=== PATIENT | female | born 1935 | race Caucasian/White ===

== ENCOUNTER 2020-09-08 15:26 | Observation (INO) | payer MEDICARE, BC ==
--- NOTE | 2020-09-08 15:47 | ED ---
General Adult HPI - General Chief complaint: Neuro Symptoms/Deficit Stated complaint: Neuro Symptoms Time Seen by Provider: 09/08/20 15:45 Source: patient, family Mode of arrival: wheelchair Limitations: no limitations - History of Present Illness Initial comments: Patient presents to the ED with her son for evaluation. Per son, the patient has had episodes of unresponsiveness intermittently over the past 1-1/2 months or so. Son states that the patient has had about 2-3 dozen such episodes today. Son describes these episodes as a periods of unresponsiveness during which the patient's eyes may be open or may be closed. Son states these episodes last for just a couple minutes at a time, and he states that the patient is completely alert and responsive immediately after these episodes (no postictal period). Patient states that she feels "fuzzy in the head" prior to these episodes. Patient states that she feels fine currently. Patient denies any recent change in her medications. Patient denies trauma or injury, any pain, fever or chills, headache, focal numbness/weakness/neuro deficit, visual changes, speech difficulty, neck/back/extremity pain, chest pain, dyspnea, cough or cold symptoms, palpitations, abdominal pain, nausea/vomiting/diarrhea, bloody or melanotic stool, dysuria or urinary symptoms, or any other symptoms or compl aints. Son states that the patient is fully vaccinated for Covid. - Related Data Home Medications Medication Instructions Recorded Confirmed Albuterol Inhaler [Ventolin Hfa 1 puff INHALATION RT-Q4H PRN 09/08/20 09/08/20 Inhaler] Apixaban [Eliquis] 2.5 mg PO BID 09/08/20 09/08/20 Calcium Carbonate [Calcium] 600 mg PO BID@0800,1700 09/08/20 09/08/20 Flecainide [Tambocor] 50 mg PO Q12HR 09/08/20 09/08/20 Fluticasone/Umeclidin/Vilanter 1 puff INHALATION RT-DAILY 09/08/20 09/08/20 [Trelegy Ellipta 100-62.5-25] HYDROcodone/APAP 5-325MG [[place] 1 tab PO HS 09/08/20 09/08/20 5-325] Ipratropium-Albuterol Nebulize 3 ml INHALATION RT-QID 09/08/20 09/08/20 [Duoneb 0.5 mg-3 mg/3 ml Soln] LORazepam [Ativan] 0.5 mg PO TID PRN 09/08/20 09/08/20 Metoprolol Succinate 200 mg PO DAILY 09/08/20 09/08/20 Multivitamins, Thera [Multivitamin 1 tab PO BID@0800,1700 09/08/20 09/08/20 (formulary)] Nitroglycerin Sl Tabs [Nitrostat] 0.4 mg SUBLINGUAL Q5M PRN 09/08/20 09/08/20 Omeprazole 20 mg PO DAILY 09/08/20 09/08/20 Simvastatin [Zocor] 10 mg PO HS 09/08/20 09/08/20 lisinopriL [Zestril] 5 mg PO BID 09/08/20 09/08/20 predniSONE 5 mg PO DAILY 09/08/20 09/08/20 Allergies Allergy/AdvReac Type Severity Reaction Status Date / Time No Known Allergies Allergy Verified 09/08/20 16:59 Review of Systems ROS Statement: Those systems with pertinent positive or pertinent negative responses have been documented in the HPI. ROS Other: All systems not noted in ROS Statement are negative. Past Medical History Past Medical History: Atrial Fibrillation, COPD, CVA/TIA, Hypertension Additional Past Medical History / Comment(s): left wrist fracture History of Any Multi-Drug Resistant Organisms: None Reported Additional Past Surgical History / Comment(s): hemorroidectomy Past Psychological History: No Psychological Hx Reported Smoking Status: Former smoker Past Alcohol Use History: None Reported Past Drug Use History: None Reported General Exam Limitations: no limitations General appearance: alert, in no apparent distress Head exam: Present: atraumatic, normocephalic Eye exam: Present: normal appearance, PERRL, EOMI ENT exam: Present: mucous membranes moist Neck exam: Present: other (Trachea is in midline). Absent: tenderness, meningismus Respiratory exam: Present: normal lung sounds bilaterally. Absent: respiratory distress, wheezes, rales, rhonchi, stridor Cardiovascular Exam: Present: regular rate, normal rhythm, normal heart sounds, other (Normal radial pulses bilaterally) GI/Abdominal exam: Present: soft. Absent: distended, tenderness, guarding Extremities exam: Present: full ROM. Absent: tenderness, pedal edema, calf tenderness Neurological exam: Present: alert, oriented X3, CN II-XII intact. Absent: motor sensory deficit Psychiatric exam: Present: normal affect, normal mood Skin exam: Present: warm, dry, intact, normal color Course Vital Signs 09/08/20 09/08/20 15:27 17:20 Temperature 98.0 F Pulse Rate 85 79 Respiratory 18 18 Rate Blood Pressure 149/72 151/85 O2 Sat by Pulse 90 L 98 Oximetry - Reevaluation(s) Reevaluation #1: 09/08/20 17:20 Patient remains A & O x 4 and continues to have a normal/nonfocal neurological exam. Patient denies development of any new symptoms while in the ED. Patient and son are aware the patient's test results, and they both agree with hospital admission at this time. 09/08/20 17:21 Case, H&P and test results were discussed with Dr. Walsh. He accepts hospital admission. He agrees with neurology consultation. He has no further recommendations at this time. EKG Findings - EKG Comments: EKG Findings:: Sinus rhythm with first-degree AV block, ventricular rate of 82 bpm, no ectopy, MO interval of 218 ms, normal QRS duration, normal QT interval, normal axis, no ST or T-wave abnormality Medical Decision Making - Medical Decision Making Patient's labs and imaging reports are fairly unremarkable. Patient has a normal/nonfocal neurological exam in the ED. Given the patient's reported unresponsive episodes, however, will admit the patient to the hospital for furth er evaluation, neurology consultation and observation. Dr. Walsh has accepted hospital admission. - Lab Data Result diagrams: 09/08/20 16:00 09/08/20 16:00 Lab Results 09/08/20 09/08/20 09/08/20 Range/Units 16:00 16:00 16:00 WBC 6.3 (3.8-10.6) k/uL RBC 3.98 (3.80-5.40) m/uL Hgb 11.1 L (11.4-16.0) gm/dL Hct 34.8 (34.0-46.0) % MCV 87.4 (80.0-100.0) fL MCH 27.9 (25.0-35.0) pg MCHC 31.9 (31.0-37.0) g/dL RDW 14.0 (11.5-15.5) % Plt Count 245 (150-450) k/uL MPV 6.8 Neutrophils % 76 % Lymphocytes % 17 % Monocytes % 5 % Eosinophils % 0 % Basophils % 1 % Neutrophils # 4.8 (1.3-7.7) k/uL Lymphocytes # 1.1 (1.0-4.8) k/uL Monocytes # 0.3 (0-1.0) k/uL Eosinophils # 0.0 (0-0.7) k/uL Basophils # 0.0 (0-0.2) k/uL Hypochromasia Slight PT 10.3 (9.0-12.0) sec INR 1.0 (<1.2) APTT 22.4 (22.0-30.0) sec Sodium 140 (137-145) mmol/L Potassium 4.6 (3.5-5.1) mmol/L Chloride 104 (98-107) mmol/L Carbon Dioxide 33 H (22-30) mmol/L Anion Gap 3 mmol/L BUN 16 (7-17) mg/dL Creatinine 0.65 (0.52-1.04) mg/dL Est GFR (CKD-EPI)AfAm >90 (>60 ml/min/1.73 sqM) Est GFR (CKD-EPI)NonAf 81 (>60 ml/min/1.73 sqM) Glucose 109 H (74-99) mg/dL Calcium 9.3 (8.4-10.2) mg/dL Total Bilirubin 0.4 (0.2-1.3) mg/dL AST 30 (14-36) U/L ALT 19 (4-34) U/L Alkaline Phosphatase 47 (38-126) U/L Troponin I (0.000-0.034) ng/mL Total Protein 5.9 L (6.3-8.2) g/dL Albumin 3.6 (3.5-5.0) g/dL Urine Color Urine Appearance (Clear) Urine pH (5.0-8.0) Ur Specific [place] (1.001-1.035) Urine Protein (Negative) Urine Glucose (UA) (Negative) Urine Ketones (Negative) Urine Blood (Negative) Urine Nitrite (Negative) Urine Bilirubin (Negative) Urine Urobilinogen (<2.0) mg/dL Ur Leukocyte Esterase (Negative) 09/08/20 09/08/20 Range/Units 16:00 16:56 WBC (3.8-10.6) k/uL RBC (3.80-5.40) m/uL Hgb (11.4-16.0) gm/dL Hct (34.0-46.0) % MCV (80.0-100.0) fL MCH (25.0-35.0) pg MCHC (31.0-37.0) g/dL RDW (11.5-15.5) % Plt Count (150-450) k/uL MPV Neutrophils % % Lymphocytes % % Monocytes % % Eosinophils % % Basophils % % Neutrophils # (1.3-7.7) k/uL Lymphocytes # (1.0-4.8) k/uL Monocytes # (0-1.0) k/uL Eosinophils # (0-0.7) k/uL Basophils # (0-0.2) k/uL Hypochromasia PT (9.0-12.0) sec INR (<1.2) APTT (22.0-30.0) sec Sodium (137-145) mmol/L Potassium (3.5-5.1) mmol/L Chloride (98-107) mmol/L Carbon Dioxide (22-30) mmol/L Anion Gap mmol/L BUN (7-17) mg/dL Creatinine (0.52-1.04) mg/dL Est GFR (CKD-EPI)AfAm (>60 ml/min/1.73 sqM) Est GFR (CKD-EPI)NonAf (>60 ml/min/1.73 sqM) Glucose (74-99) mg/dL Calcium (8.4-10.2) mg/dL Total Bilirubin (0.2-1.3) mg/dL AST (14-36) U/L ALT (4-34) U/L Alkaline Phosphatase (38-126) U/L Troponin I <0.012 (0.000-0.034) ng/mL Total Protein (6.3-8.2) g/dL Albumin (3.5-5.0) g/dL Urine Color Light Yellow Urine Appearance Clear (Clear) Urine pH 7.0 (5.0-8.0) Ur Specific [place] 1.006 (1.001-1.035) Urine Protein Negative (Negative) Urine Glucose (UA) Negative (Negative) Urine Ketones Negative (Negative) Urine Blood Negative (Negative) Urine Nitrite Negative (Negative) Urine Bilirubin Negative (Negative) Urine Urobilinogen <2.0 (<2.0) mg/dL Ur Leukocyte Esterase Negative (Negative) - Radiology Data Radiology results: report reviewed (Noncontrast head CT: Cerebral atrophy, c hronic small vessel ischemia, no acute intracranial abnormality; chest x-ray: Mild scarring at the right lung apex, no active cardiopulmonary disease, normal heart) Disposition Clinical Impression: Unresponsive episode Disposition: ADMITTED IP TO THIS HOSP Condition: Stable Is patient prescribed a controlled substance at d/c from ED?: No Referrals: Norris Hermosillo MD [Primary Care Provider] - 1-2 days Time of Disposition: 17:31
[2020-09-08 16:09] LABS: Basophils % (A) 1 %; Eosinophils % (A) 0 %; HCT 34.8 % (34.0-46.0); HGB 11.1 gm/dL (11.4-16.0); Hypochromasia Slight; Lymphocytes # (A) 1.1 k/uL (1.0-4.8); Lymphocytes % (A) 17 %; MCH 27.9 pg (25.0-35.0); MCHC 31.9 g/dL (31.0-37.0); MCV 87.4 fL (80.0-100.0); Mean Platelet Volume 6.8; Monocytes # (A) 0.3 k/uL (0-1.0); Monocytes % (A) 5 %; Neutrophils # (A) 4.8 k/uL (1.3-7.7); Neutrophils % (A) 76 %; Platelet Count 245 k/uL (150-450); RBC 3.98 m/uL (3.80-5.40); WBC 6.3 k/uL (3.8-10.6)
[2020-09-08 16:19] LABS: ALT 19 U/L (4-34); AST 30 U/L (14-36); African American GFR (CKD) >90 (>60 ml/min/1.73 sqM); Albumin 3.6 g/dL (3.5-5.0); Alkaline Phosphatase 47 U/L (38-126); Anion Gap 3 mmol/L; Blood Urea Nitrogen 16 mg/dL (7-17); Calcium 9.3 mg/dL (8.4-10.2); Carbon Dioxide 33 mmol/L (22-30); Chloride 104 mmol/L (98-107); Glucose 109 mg/dL (74-99); Non-African American GFR(CKD) 81 (>60 ml/min/1.73 sqM); Potassium 4.6 mmol/L (3.5-5.1); Sodium 140 mmol/L (137-145); Total Bilirubin 0.4 mg/dL (0.2-1.3); Total Protein 5.9 g/dL (6.3-8.2)
[2020-09-08 16:23] LABS: Partial Thromboplastin Time 22.4 sec (22.0-30.0); Prothrombin Time 10.3 sec (9.0-12.0)
--- NOTE | 2020-09-08 16:31 | CT ---
EXAMINATION TYPE: CT brain wo con DATE OF EXAM: 09/08/2020 COMPARISON: None HISTORY: neuro deficits CT DLP: 1158.4 mGycm Automated exposure control for dose reduction was used. There is cerebral cortical atrophy. There is no mass effect nor midline shift. There is no sign of in tracranial hemorrhage. Calvarium is intact. There is mild hypodensity in the white matter around the frontal horns of the lateral ventricles. Skull base is intact. IMPRESSION: Cerebral atrophy. Chronic small vessel ischemia. No acute intracranial abnormality.
--- NOTE | 2020-09-08 16:33 | XR ---
EXAMINATION TYPE: XR chest 2V DATE OF EXAM: 09/08/2020 COMPARISON: NONE HISTORY: Unresponsive TECHNIQUE: 2 views FINDINGS: There is no heart failure nor confluent pneumonic infiltrate. There is minimal pleural thic kening right lung apex. There is no evidence of pleural effusion. There are no hilar masses. There is osteopenia. There is old left humeral neck fracture. IMPRESSION: Mild scarring at the right lung apex. No active cardiopulmonary disease. Normal heart.
[2020-09-08 16:59] LABS: Appearance,Urine Clear (Clear); Bilirubin,Urine Negative (Negative); Blood,Urine Negative (Negative); Color,Urine Light Yellow; Glucose,Urine (UA) Negative (Negative); Ketones,Urine Negative (Negative); Leukocyte Esterase,Urine Negative (Negative); Nitrite,Urine Negative (Negative); Protein,Urine Negative (Negative); Specific Gravity,Urine 1.006 (1.001-1.035); Urobilinogen,Urine <2.0 mg/dL (<2.0)
[2020-09-08] MEDS ORDERED: IPRATROPIUM-ALBUTEROL 3 ML NEB INHALATION STA (18:24)
[2020-09-08] MEDS: IPRATROPIUM-ALBUTEROL 3 ML NEB INHALATION SCH (19:58)
[2020-09-08] MEDS: HYDROcodone/APAP 5-325MG 1 EACH TAB PO SCH (20:23)
[2020-09-08] MEDS: APIXABAN 2.5 MG TABLET PO SCH (20:24)
[2020-09-08] MEDS: ATORVASTATIN 10 MG TAB PO SCH (20:25)
[2020-09-08] MEDS: lisinopriL 5 MG TAB PO SCH (20:25)
[2020-09-08] MEDS: FLECAINIDE 50 MG TAB PO SCH (20:25)
--- NOTE | 2020-09-08 22:50 | P.HPIM ---
History of Present Illness H&P Date: 09/08/20 Chief Complaint: Episodes of zoning out 85-year-old female with A. fib on Eliquis COPD on home oxygen hypertension Patient was brought in by her son due to concerns regarding frequent episodes of zoning out today she had about 12 episodes where she would suddenly becomes un responsive for a short time around 1 minute and then regains consciousness she doesn't fall during these episodes and general however sometimes she would have some jerky movements she described as head banging on a chair or slamming her arms on a table that she is unconscious of but that she would regain consciousness and finds herself doing it. During these episodes sometimes she would have her eyes open other times would have them closed. She denies any associated loss of bladder or bowel control or tongue biting and these episodes happens sporadically sometimes she goes weeks without having any episodes that she forgets about them and then starts happening again. This is all started ar march when she was visiting her dying at Hospital she had an episode of passing out she fell down and hit her head on the ground and broke her left upper extremity around the forearm since then she will started having these episodes of zoning out preceded by feeling fuzzy in the head and then she with loses awareness for brief 1 minutes and then regains consciousness and feels completely normal after that no report of any post ictal confusion she claims that most of these episodes since the fall has happened while she is sitting down she spent 2 months at rehab after breaking her left upper extremity and then since discharge she's been with her son. She otherwise denies any changes in her medications he denies any other injuries she denies any history of seizures she hasn't seen any neurologist for that yet Patient denies any other focal neuro deficits she denies any fevers or chills denies any chest pain or trouble breathing she denies any nausea vomiting denies any changes in vision or hearing. About 5 weeks ago she had a heart monitor which her wind farm electrical systems designer reported that was normal and was done because she was having episodes of palpitations. Patient is vaccinated for Covid. She denies any recent viral illnesses In the ED initial workup was overall unremarkable hemoglobin showed mild anemia computed tomography scan of the head was negative chest x-ray was negative EKG showed first-degree AV block Review of Systems Pertinent positives as noted in HPI. All other systems were reviewed and are negative Past Medical History Past Medical History: Atrial Fibrillation, COPD, CVA/TIA, Hypertension Additional Past Medical History / Comment(s): left wrist fracture History of Any Multi-Drug Resistant Organisms: None Reported Additional Past Surgical History / Comment(s): hemorroidectomy Past Anesthesia/Blood Transfusion Reactions: No Reported Reaction Past Psychological History: No Psychological Hx Reported Smoking Status: Former smoker Past Alcohol Use History: None Reported Past Drug Use History: None Reported Medications and Allergies Home Medications Medication Instructions Recorded Confirmed Type Albuterol Inhaler [Ventolin Hfa 1 puff INHALATION RT-Q4H PRN 09/08/20 09/08/20 History Inhaler] Apixaban [Eliquis] 2.5 mg PO BID 09/08/20 09/08/20 History Calcium Carbonate [Calcium] 600 mg PO BID@0800,1700 09/08/20 09/08/20 History Flecainide [Tambocor] 50 mg PO Q12HR 09/08/20 09/08/20 History Fluticasone/Umeclidin/Vilan[place] 1 puff INHALATION RT-DAILY 09/08/20 09/08/20 History [Trelegy Ellipta 100-62.5-25] HYDROcodone/APAP 5-325MG [[place] 1 tab PO HS 09/08/20 09/08/20 History 5-325] Ipratropium-Albuterol Nebulize 3 ml INHALATION RT-QID 09/08/20 09/08/20 History [Duoneb 0.5 mg-3 mg/3 ml Soln] LORazepam [Ativan] 0.5 mg PO TID PRN 09/08/20 09/08/20 History Metoprolol Succinate 200 mg PO DAILY 09/08/20 09/08/20 History Multivitamins, Thera [Multivitamin 1 tab PO BID@0800,1700 09/08/20 09/08/20 History (formulary)] Nitroglycerin Sl Tabs [Nitrostat] 0.4 mg SUBLINGUAL Q5M PRN 09/08/20 09/08/20 History Omeprazole 20 mg PO DAILY 09/08/20 09/08/20 History Simvastatin [Zocor] 10 mg PO HS 09/08/20 09/08/20 History lisinopriL [Zestril] 5 mg PO BID 09/08/20 09/08/20 History predniSONE 5 mg PO DAILY 09/08/20 09/08/20 History Allergies Allergy/AdvReac Type Severity Reaction Status Date / Time No Known Allergies Allergy Verified 09/08/20 16:59 Physical Exam Vitals: Vital Signs Temp Pulse Pulse Resp BP BP Pulse Ox 09/08/20 20:13 76 09/08/20 20:00 75 18 09/08/20 18:39 97.9 F 71 17 165/77 100 09/08/20 17:20 79 18 151/85 98 09/08/20 15:27 98.0 F 85 18 149/72 90 L Intake and Output 09/08/20 09/08/20 09/08/20 06:59 14:59 22:59 Other: Voiding Method Toilet # Voids 1 Weight 47.627 kg Constitutional: No acute distress, conversant, pleasant Eyes: Anicteric sclerae, moist conjunctiva, Pupils equal round reactive to light ENMT: NC/AT Oropharynx clear, no erythema, or exudates Neck: Supple, FROM, no masses, or JVD No carotid bruits No thyromegaly Lungs: Clear to auscultation Clear to percussion Normal respiratory effort, no accessory muscle use Cardiovascular: Heart regular in rate and rhythm, No murmurs, gallops, or rubs No peripheral edema Abdominal: Soft Nontender, no guarding, rebound or rigidity Abdomen moving with respiration Normoactive bowel sounds No hepatomegaly, No splenomegaly No palpable mass No abdominal wall hernia noted Skin: Normal temperature, tone, texture, turgor No induration No subcutaneous nodules No rash, lesions Skin lipoma over bilateral upper extremities multiple Extremities: No digital cyanosis No clubbing Pedal pulses intact and symmetrical Radial pulses intact and symmetrical No calf tenderness Psychiatric: Alert and oriented to person, place and time Appropriate affect fair judgement Neuro Muscles Strength 4/5 in all 4 extremities Sensation to light touch grossly present throughout Cranial nerves II-XII grossly intact No focal sensory deficits Lymphatics: no palpable cervical or supraclavicular , or inguinal lymph nodes Results CBC & Chem 7: 09/08/20 16:00 09/08/20 16:00 Labs: Abnormal Lab Results - Last 24 Hours (Table) 09/08/20 09/08/20 Range/Units 16:00 16:00 Hgb 11.1 L (11.4-16.0) gm/dL Carbon Dioxide 33 H (22-30) mmol/L Glucose 109 H (74-99) mg/dL Total Protein 5.9 L (6.3-8.2) g/dL Thrombosis Risk Factor Assmnt - Choose All That Apply Each Factor Represents 1 point: Abnormal pulmonary function (COPD) Other Risk Factors: No Other congenital or acquired thrombophilia - If yes, enter type in comment: No Thrombosis Risk Factor Assessment Total Risk Factor Score: 1 Thrombosis Risk Factor Assessment Level: Low Risk Assessment and Plan Assessment: Episodes of unresponsiveness rule out underlying seizures Fall and seizure precautions Neuro consultation Check EEG Neurochecks Cardiac monitoring CT of the brain negative Chest x-ray negative EKG showed first-degree AV block Chronic conditions COPD with chronic hypoxic respiratory failure on home oxygen, and low-dose prednisone Resume inhalers DuoNeb's when necessary A. fib paroxysmal on left thinners Hypertension controlled Hyperlipidemia Resume home medications CODE STATUS: Full code DVT prophylaxis: On Eliquis Discussed with: Patient, ER, RN Anticipated length of stay less than [address]: Pending clinical course A total of 70 minutes was spent on the care of this complex patient more than 50% of the time was spent in counseling and care coordination.
[2020-09-09] MEDS: SYMBICORT 80-4.5 MCG INHALER INHALATION SCH ×2 (07:00→20:16)
[2020-09-09] MEDS: IPRATROPIUM-ALBUTEROL 3 ML NEB INHALATION SCH ×4 (07:00→20:16)
[2020-09-09] MEDS ORDERED: IPRATROPIUM 0.5 MG/2.5 ML NEBU INHALATION SCH (08:00)
[2020-09-09 09:07] LABS: Basophils # (A) 0.05 X 10*3/uL (0.00-0.10); Basophils % (A) 0.9 %; Eosinophils # (A) 0.13 X 10*3/uL (0.04-0.35); Eosinophils % (A) 2.3 %; HCT 33.4 % (37.2-46.3); HGB 9.7 g/dL (12.0-15.0); Lymphocytes # (A) 1.74 X 10*3/uL (0.90-5.00); Lymphocytes % (A) 30.8 %; MCH 27.2 pg (27.0-32.0); MCV 93.8 fL (80.0-97.0); Mean Platelet Volume 9.7 fL (9.5-12.2); Monocytes # (A) 0.63 X 10*3/uL (0.20-1.00); Monocytes % (A) 11.2 %; Neutrophils # (A) 3.08 X 10*3/uL (1.80-7.70); Neutrophils % (A) 54.4 %; Platelet Count 232 X 10*3/uL (140-440); RBC 3.56 X 10*6/uL (4.10-5.20); RDW 14.1 % (11.5-14.5); WBC 5.65 X 10*3/uL (4.50-10.00)
[2020-09-09 10:00] LABS: African American GFR (CKD) 77.4 (60.0-200.0); Albumin 3.6 g/dL (3.80-4.90); Albumin/Globulin Ratio 2.12 (1.60-3.17); Anion Gap 5.4 mmol/L (4.00-12.00); BUN/Creat Ratio 21.25 Ratio (12.00-20.00); Calcium 9.1 mg/dL (8.7-10.3); Carbon Dioxide 34.6 mmol/L (21.6-31.8); Globulin 1.7 g/dL (1.6-3.3); Non-African American GFR(CKD) 66.8 (60.0-200.0); Potassium 4.9 mmol/L (3.5-5.5); Total Bilirubin 0.5 mg/dL (0.2-1.2); Total Protein 5.3 g/dL (6.2-8.2)
[2020-09-09] MEDS: predniSONE 5 MG TAB PO SCH (10:21)
[2020-09-09] MEDS: lisinopriL 5 MG TAB PO SCH ×2 (10:21→19:47)
[2020-09-09] MEDS: PANTOPRAZOLE 40 MG TABLET PO SCH (10:21)
[2020-09-09] MEDS: APIXABAN 2.5 MG TABLET PO SCH ×2 (10:21→19:47)
[2020-09-09] MEDS: METOPROLOL SUCCINATE (ER) 100 MG TAB.ER.24H PO SCH (10:22)
[2020-09-09] MEDS: FLECAINIDE 50 MG TAB PO SCH ×2 (10:22→19:47)
--- NOTE | 2020-09-09 12:17 | P.PN ---
Subjective Progress Note Date: 09/09/20 No new complaints today. Patient is pending EEG. No observed seizure-like activity during admission Objective - Vital Signs Vital signs: Vital Signs Temp 97.4 F L 09/09/20 07:00 Pulse 62 09/09/20 11:02 Resp 14 09/09/20 07:00 BP 118/57 09/09/20 07:00 Pulse Ox 98 09/09/20 07:00 Intake & Output 09/08/20 09/09/20 09/09/20 18:59 06:59 18:59 Intake Total 118 Balance 118 Weight 47.627 kg Intake: Oral 118 Other: Voiding Method Toilet # Voids 1 - Exam Gen: awake, alert HEENT: normocephalic, atraumatic, good hearing acuity, moist mucous membranes Resp: good air exchange, breathing comfortably with no accessory muscle use, clear to auscultation bilaterally without wheezes or crackles CVS: good distal perfusion x 4, regular rate and rhythm without murmurs GI: soft, NTTP, ND, appropriate bowel sounds : no SPT, no CVAT, nichols catheter not present MSK: no pitting edema, no clubbing Neuro: non-focal, moving all extremities, mild left upper extremity weakness, reflexes 1+ throughout, no sensory deficits Psych: cooperative, euthymic mood - Labs CBC & Chem 7: 09/09/20 06:27 09/09/20 06:27 Labs: Abnormal Lab Results - Last 24 Hours (Table) 09/08/20 09/08/20 09/09/20 Range/Units 16:00 16:00 06:27 RBC 3.56 L (4.10-5.20) X 10*6/uL Hgb 11.1 L 9.7 L (11.4-16.0) gm/dL Hct 33.4 L (37.2-46.3) % MCHC 29.0 L (32.0-37.0) g/dL Carbon Dioxide 33 H (22-30) mmol/L BUN/Creatinine Ratio (12.00-20.00) Ratio Glucose 109 H (74-99) mg/dL Total Protein 5.9 L (6.3-8.2) g/dL Albumin (3.80-4.90) g/dL 09/09/20 Range/Units 06:27 RBC (4.10-5.20) X 10*6/uL Hgb (11.4-16.0) gm/dL Hct (37.2-46.3) % MCHC (32.0-37.0) g/dL Carbon Dioxide 34.6 H (22-30) mmol/L BUN/Creatinine Ratio 21.25 H (12.00-20.00) Ratio Glucose (74-99) mg/dL Total Protein 5.3 L (6.3-8.2) g/dL Albumin 3.60 L (3.80-4.90) g/dL Assessment and Plan Assessment: Episodes of unresponsiveness rule out underlying seizures Fall and seizure precautions Neuro consultation Check EEG Neurochecks MRI pending Cardiac monitoring CT of the brain negative Chest x-ray negative EKG showed first-degree AV block COPD with chronic hypoxic respiratory failure on home oxygen, and low-dose prednisone Resume inhalers DuoNeb's when necessary A. fib paroxysmal on blood thinners Hypertension controlled Hyperlipidemia Resume home medications CODE STATUS: Full code DVT prophylaxis: On Eliquis Discussed with: Patient, ER, RN Anticipated length of stay less than [address]: Pending clinical course
--- NOTE | 2020-09-09 12:46 | P.CNNES ---
History of Present Illness Consult date: 09/09/20 History of Present Illness: The patient is an 85-year-old female who is seen in neurologic consultation on September 09, 2020, via teleneurology. The chart is reviewed. The patient is reportedly brought into the hospital by her son because of episodes of unresponsiveness. Apparently these episodes have been increasing in number and frequency. They reportedly last for only a minute or so. The patient describes them as "foggy spells". Patient describes a "woozy feeling", as if she would pass out. These episodes would then resolve. More recently the episodes are occurring in the patient does not recall the event. It is reported that the patient is completely back to normal as soon as the episode ends. There is no reported postictal state.The patient herself says that she must figure out where she is, when she wakes up. Apparently there have been episodes where she "bangs" her arms on the table. She has had one episode where she fell off the toilet. She describes a "stone of dizziness". Patient reports syncopal episodes in the past. Following these more recent episodes, the patient says she is able to speak. She says she must figure out where she is. There is no tongue biting or loss of bowel and bladder control with these episodes. Patient denies headache. It is also reported per history and physical, that these episodes may occur daily for a couple weeks in a row and then are absent for a couple weeks in a row. Apparently in March, the patient had a syncopal episode. The patient reportedly fell to the ground striking her head. She broke her left arm. The patient reports that her left leg was paralyzed following this event. This syncopal episode reportedly occurred while the patient was visiting her dying , in the hospital. She spent time in rehabilitation and is now able to walk again. Patient does report that her memory is not as good as it used to be. The patient reports no further episodes since admission to the hospital. Past Medical History Past Medical History: Atrial Fibrillation, COPD, CVA/TIA, Hypertension Additional Past Medical History / Comment(s): left wrist fracture History of Any Multi-Drug Resistant Organisms: None Reported Additional Past Surgical History / Comment(s): hemorroidectomy Past Anesthesia/Blood Transfusion Reactions: No Reported Reaction Past Psychological History: No Psychological Hx Reported Smoking Status: Former smoker Past Alcohol Use History: None Reported Past Drug Use History: None Reported Medications and Allergies Home Medications Medication Instructions Recorded Confirmed Type Albuterol Inhaler [Ventolin Hfa 1 puff INHALATION RT-Q4H PRN 09/08/20 09/08/20 History Inhaler] Apixaban [Eliquis] 2.5 mg PO BID 09/08/20 09/08/20 History Calcium Carbonate [Calcium] 600 mg PO BID@0800,1700 09/08/20 09/08/20 History Flecainide [Tambocor] 50 mg PO Q12HR 09/08/20 09/08/20 History Fluticasone/Umeclidin/Vilanter 1 puff INHALATION RT-DAILY 09/08/20 09/08/20 History [Trelegy Ellipta 100-62.5-25] HYDROcodone/APAP 5-325MG [Pattison 1 tab PO HS 09/08/20 09/08/20 History 5-325] Ipratropium-Albuterol Nebulize 3 ml INHALATION RT-QID 09/08/20 09/08/20 History [Duoneb 0.5 mg-3 mg/3 ml Soln] LORazepam [Ativan] 0.5 mg PO TID PRN 09/08/20 09/08/20 History Metoprolol Succinate 200 mg PO DAILY 09/08/20 09/08/20 History Multivitamins, Thera [Multivitamin 1 tab PO BID@0800,1700 09/08/20 09/08/20 History (formulary)] Nitroglycerin Sl Tabs [Nitrostat] 0.4 mg SUBLINGUAL Q5M PRN 09/08/20 09/08/20 History Omeprazole 20 mg PO DAILY 09/08/20 09/08/20 History Simvastatin [Zocor] 10 mg PO HS 09/08/20 09/08/20 History lisinopriL [Zestril] 5 mg PO BID 09/08/20 09/08/20 History predniSONE 5 mg PO DAILY 09/08/20 09/08/20 History Allergies Allergy/AdvReac Type Severity Reaction Status Date / Time No Known Allergies Allergy Verified 09/08/20 16:59 Physical Examination - Vital Signs Vital Signs: Vital Signs Temp Pulse Pulse Resp BP BP Pulse Ox 09/09/20 07:14 60 09/09/20 07:00 97.4 F L 60 58 L 14 118/57 98 09/09/20 02:09 97.4 F L 60 22 105/55 100 09/08/20 20:13 76 09/08/20 20:00 75 18 09/08/20 18:39 97.9 F 71 17 165/77 100 09/08/20 17:20 79 18 151/85 98 09/08/20 15:27 98.0 F 85 18 149/72 90 L Intake and Output 09/08/20 09/09/20 09/09/20 22:59 06:59 14:59 Intake Total 118 Balance 118 Intake: Oral 118 Other: Voiding Method Toilet Toilet # Voids 1 1 Weight 47.627 kg Gen.: The patient is reclining in the bed. She is well-nourished, well- developed and in no acute distress. HEENT: Head is atraumatic, normocephalic. Fundus not visualized. There is no scleral icterus. Mucous membranes are moist. Neck: Supple with a right carotid bruit Heart: Regular rate and rhythm Extremities: Patient has her left forearm wrapped Neurological examination Mental status: The patient is awake, alert and oriented 3. Her speech is clear. There is no dysarthria. Cranial nerves: Pupils are equal at 4 mm and reactive. Visual mccall are full to confrontation. Extraocular movements are intact. There is no nystagmus. Facial sensations intact. There is no facial asymmetry. Hearing is grossly intact. Uvula and palate are midline. Shoulder shrug is symmetric. Tongue pr otrudes midline. Motor: Bilateral upper extremity strength is 5/5. Left hip flexor 4/5. Right hip flexor 5/5. Sensation: Grossly intact to light touch. There is no extinction with double simultaneous stimulation. Coordination: Right-sided finger to nose testing is intact. Left is not assessed Deep tendon reflexes: 2+/4+ in the bilateral upper extremities. 1+4+ at the knees. Results - Laboratory Findings CBC and BMP: 09/09/20 06:27 09/09/20 06:27 Abnormal Lab Findings: Abnormal Labs 09/08/20 09/08/20 09/09/20 16:00 16:00 06:27 RBC 3.56 L Hgb 11.1 L 9.7 L Hct 33.4 L MCHC 29.0 L Carbon Dioxide 33 H Glucose 109 H Total Protein 5.9 L Assessment and Plan Assessment: 1. Reported brief, multiple episodes of unresponsiveness: Seizure versus syncope 2. History of syncope Plan: 1. EEG has been ordered-this will be done Thursday 2. MRI of brain with and without gadolinium, looking for etiology of possible new onset seizures 3. Dr. Genao will assume neurologic coverage of this patient as of 09/10/2020 Time with Patient: Greater than 30 (spent 40 minutes with patient via teleneurology)
[2020-09-09] MEDS: ATORVASTATIN 10 MG TAB PO SCH (19:47)
[2020-09-09] MEDS: HYDROcodone/APAP 5-325MG 1 EACH TAB PO SCH (19:47)
[2020-09-10] MEDS: SYMBICORT 80-4.5 MCG INHALER INHALATION SCH ×2 (07:26→19:11)
[2020-09-10] MEDS: IPRATROPIUM-ALBUTEROL 3 ML NEB INHALATION SCH ×4 (07:26→19:11)
[2020-09-10] MEDS: PANTOPRAZOLE 40 MG TABLET PO SCH (08:29)
[2020-09-10] MEDS: APIXABAN 2.5 MG TABLET PO SCH (08:29)
[2020-09-10] MEDS: lisinopriL 5 MG TAB PO SCH (08:29)
[2020-09-10] MEDS: METOPROLOL SUCCINATE (ER) 100 MG TAB.ER.24H PO SCH (08:30)
[2020-09-10] MEDS: FLECAINIDE 50 MG TAB PO SCH (08:30)
[2020-09-10] MEDS: predniSONE 5 MG TAB PO SCH (08:30)
--- NOTE | 2020-09-10 14:16 | P.PN ---
Subjective Progress Note Date: 09/10/20 No new complaints. No further episodes of seizure like activity while in house. Objective - Vital Signs Vital signs: Vital Signs Temp 97.8 F 09/10/20 07:00 Pulse 72 09/10/20 11:13 Resp 14 09/10/20 07:00 BP 166/61 09/10/20 07:00 Pulse Ox 97 09/10/20 07:00 Intake & Output 09/09/20 09/10/20 09/10/20 18:59 06:59 18:59 Intake Total 118 Balance 118 Intake: Oral 118 Other: Voiding Method Toilet Bedside Commode # Voids 3 2 # Bowel Movements 0 - Exam Gen: awake, alert HEENT: normocephalic, atraumatic, good hearing acuity, moist mucous membranes Resp: good air exchange, breathing comfortably with no accessory muscle use, clear to auscultation bilaterally without wheezes or crackles CVS: good distal perfusion x 4, regular rate and rhythm without murmurs GI: soft, NTTP, ND, appropriate bowel sounds : no SPT, no CVAT, nichols catheter not present MSK: no pitting edema, no clubbing Neuro: non-focal, moving all extremities, mild left upper extremity weakness, reflexes 1+ throughout, no sensory deficits Psych: cooperative, euthymic mood - Labs CBC & Chem 7: 09/09/20 06:27 09/09/20 06:27 Assessment and Plan Assessment: Episodes of unresponsiveness rule out underlying seizures Fall and seizure precautions Neuro consultation, appreciate recs, pending clearance prior to discharge Check EEG --> pending read Neurochecks --> have been normal MRI brain --> imaging completed, pending read Cardiac monitoring --> no arrhythmia CT of the brain negative Chest x-ray negative EKG showed first-degree AV block COPD with chronic hypoxic respiratory failure on home oxygen, and low-dose prednisone - Notably, patient has been saturating well on room air on several occasions while in house, can reassess need for home o2 on discharge Resume inhalers DuoNeb's when necessary A. fib paroxysmal on blood thinners Hypertension controlled Hyperlipidemia Resume home medications: atorvastatin, flecainide, symbicort, eliquis, metoprolol, PPI, lisinopril, prednisone CODE STATUS: Full code DVT prophylaxis: On Eliquis Anticipated length of stay less than [address]: Home tomorrow with home care
--- NOTE | 2020-09-10 14:46 | MR ---
EXAMINATION TYPE: MR brain wo/w con DATE OF EXAM: 09/10/2020 COMPARISON: CT brain 2 days ago. HISTORY: Seizure TECHNIQUE: Multiplanar, multisequence images of the brain and brainstem is performed without and with IV contras t, utilizing 5 mL intravenous Gadavist . FINDINGS: Diffusion weighted images demonstrate no evidence of a recent infarct or other diffusion ab normality. There is mild ventricular and sulcal prominence. Focal and confluent areas of T2 hyperint ensity are seen throughout the white matter bilaterally. Midline structures demonstrate normal morphology. The craniocervical junction appears within normal limits. Postcontrast images show faint heterogeneous enhancement in the deep left cerebellar hemisphe re near cerebellar peduncle seen best coronal image 23 roughly 1.7 x 0.6 cm area. The area appears is ointense on T1 and T2-weighted images. No additional areas of abnormal enhancement. The dural venous sinuses appear patent. The visualized sinuses are clear and the globes are intact. Mild patchy fluid inferior mastoid air cells. IMPRESSION: Vague area of enhancement deep left cerebellar hemisphere of uncertain etiology as there is no underlying mass or abnormal T1 or T2 signal clearly seen at this level. Background mild diffuse cerebral atrophy and moderate to advanced chronic small vessel ischemic change.
--- NOTE | 2020-09-10 15:12 | EEG ---
ELECTROENCEPHALOGRAM REPORT DATE OF SERVICE: 09/10/2020 PREAMBLE: This 85-year-old female who has episodes of unresponsiveness. The patient was admitted for of "foggy spells." The patient does have atrial fibrillation. EEG FINDINGS: This is a 21 channel routine EEG recording in a patient utilizing 10/20 international system with referential and bipolar montages. Background consists of well developed, well regulated, moderate voltage activity in mixed frequency of 6-7 hertz theta intermixed with some 8-9 hertz alpha activity. Background does not seem to be reactive to eye opening or closing. Photic driving response was seen with some flash frequencies. Different stages of sleep were not seen. No focal or generalized epileptiform activity was seen. IMPRESSION: This is mildly abnormal EEG due to mild background slowing. This is suggestive of generalized cerebral dysfunction as can be seen with encephalopathy of metabolic, degenerative or vascular causes. No epileptiform activity was seen. MMODL / IJN: [id number] / MTDD
--- NOTE | 2020-09-10 18:56 | P.PN ---
Subjective Progress Note Date: 09/10/20 Patient was seen for a follow-up. Patient seen by Dr. Rojo in consultation on 09/09/2020. Please refer to her note for details. I spoke to the patient in detail. She states that in March 2020 when her was passing away, she went to visit him in the long-term facility. She tripped over the cord, fell on the left side, producing fracture of the left arm in 4 different places. After the hospitalization, she was in rehab center for 6 weeks. While she was in rehab, she had couple spells of dizziness, but she did not think much. However as the time passed, it has become more frequent. She would have these spells one to 2 times a day, or one every 2 weeks or once a month. Sometimes she would not have it for a couple weeks and then would have 4 of them [id number]. Last 09/10/2020, she had around 10 of these spells. She states that she gets dizzy, then she "can't put together", fuzzy feeling and is "gone". When she wakes up, does not know what she was doing. Sometimes she would wake up to finding herself hanging on the arm of a chair. One time she went to the bathroom, had a spell, fell down and when she came to, she found herself beating her head on the seat. One time she slid off the toilet. When she came to, she was on the floor. She denies any family history of seizures or epilepsy. Patient states her daughter has been diagnosed with a brain aneurysm. Patient also has history of atrial fibrillation, on Eliquis. Patient states that she has recent Holter monitoring performed for 24 hours in the marketing operations consultant told her that everything was fine. Patient denies diabetes. Patient states that she was a smoker about 1-2 packs per day since she was age 16. She quit smoking 10 years ago. She has COPD. Objective - Vital Signs Vital signs: Vital Signs Temp 97.4 F L 09/10/20 15:15 Pulse 79 09/10/20 15:29 Resp 16 09/10/20 15:15 BP 161/77 09/10/20 15:15 Pulse Ox 96 09/10/20 15:15 Intake & Output 0609/10/20 09/10/20 18:59 06:59 18:59 Intake Total 118 Balance 118 Intake: Oral 118 Other: Voiding Method Toilet Bedside Commode # Voids 3 2 1 # Bowel Movements 0 - Exam Patient is an elderly female, very pleasant. In no acute distress. Patient is slightly short of breath, uses oxygen at home. Patient is alert awake oriented to time place and person. Speech and language functions are normal. Attention, concentration and fund of knowledge is adequate. On cranial examination, pupils are round and reacting to light, visual mccall are full on confrontation, extraocular muscles are intact with no nystagmus. Face is symmetric, tongue protrudes to the midline. Palatal elevation and sensation normal, hearing is mildly decreased and shoulder shrug normal, facial sensation normal. On muscle strength testing, there is no pronator drift on the right, left side not checked because of recent fractures. Her strength is normal in right arm distally and proximally. Left arm not checked. Strength in the lower limbs revealed hip flexion 5-, ankle dorsiflexion 5/4, peronei 5/5, inversion 5/5, toe extension 3/0. Reflexes are 1-2 in the right upper limb, 0 at the knees and ankles. Plantars are downgoing. Sensory to touch is equal with no neglect. Cerebellar function showed no ataxia for [id number] testing. No dysdiadochokinesia. Tone and bulk of muscles normal. Gait normal. On general examination Chest is clear. Peripheral pulses are present. No edema. Patient has hammertoes on the left. - Labs CBC & Chem 7: 09/09/20 06:27 09/09/20 06:27 Assessment and Plan Assessment: * Reported brief, multiple episodes of unresponsiveness: Seizure versus syncope versus arrhythmia. Patient has history of atrial fibrillation, currently on Eliquis. Patient's recent Holter monitoring was negative and telemetry monitoring so far showing no significant abnormalities. * History of syncope * X tobacco use * COPD Plan: 1. EEG was performed, which was mildly abnormal due to background slowing. This is suggestive of generalized cerebral dysfunction as can be seen with toxic metabolic encephalopathy or due to diffuse structural brain abnormality. No epileptiform activity was seen. 2. MRI of brain with and without gadolinium, revealed vague area of enhancement deep left cerebellar hemisphere of uncertain etiology, as there is no underlying mass or abnormal T1 or T2 signal clearly seen at this level. Background mild diffuse cerebral atrophy and moderate to advanced chronic small vessel ischemic change. I reviewed at the MRI. As there is no abnormal signal seen in the FLAIR or T2 sequence, therefore could be artifactual in nature. Will discuss with the radiologist in the morning. 3. Suggest checking orthostatics. Patient is also anemic. 4. Carotid Doppler. 5. 2-D echo to rule out embolic source. 6. Telemetry monitoring so far showing sinus rhythm, sinus bradycardia in the 50s. 7. Consider cardiology consultation for event monitor or loop recorder to evaluate for arrhythmia. Time with Patient: Greater than 30
--- NOTE | 2020-09-10 20:35 | US ---
EXAMINATION TYPE: US carotid duplex BILAT DATE OF EXAM: 09/10/2020 COMPARISON: MR, CT CLINICAL HISTORY: Recurrent syncope, X tobacco use. Recurrent syncope. Hx tobacco use. Quit smoking 1 0 years ago. EXAM MEASUREMENTS: RIGHT: Peak Systolic Velocity (PSV) cm/sec ----- Right CCA: 83.9 ----- Right ICA: 114.7 ----- Right ECA: 115.2 ICA/CCA ratio: 1.4 RIGHT: End Diastole cm/sec ----- Right CCA: 14.6 ----- Right ICA: 29.3 ----- Right ECA: 6.9 LEFT: Peak Systolic Velocity (PSV) cm/sec ----- Left CCA: 87.5 ----- Left ICA: 144.5 ----- Left ECA: 186.6 ICA/CCA ratio: 1.7 LEFT: End Diastole cm/sec ----- Left CCA: 18.9 ----- Left ICA: 30.2 ----- Left ECA: 17.0 VERTEBRALS (direction of flow): Right Vertebral: Antegrade Left Vertebral: Antegrade Rhythm: Normal Intimal thickening seen bilaterally. Plaque seen bilateral bulb, right ECA, left ICA, and left ECA. E levated velocities within left ECA and left ICA. 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 Milder narrowing of less than 50% is present o n the right internal carotid artery. Criteria for Assigning % of Stenosis / Diameter reduction (Estimation based on the indirect measurements of the internal carotid artery velocities (ICA PSV). 1. Normal (no stenosis)=ICA PSV < 125 cm/s: ratio < 2.0: ICA EDV<40 cm/s. 2. Less than 50% stenosis=ICA PSV < 125 cm/s: ratio < 2.0: ICA EDV<40 cm/s. 3. 50 to 69% stenosis=ICA PSV of 125 to 230 cm/s: ration 2.0 ? 4.0: ICA EDV 40-100 cm/s. 4. Greater than 70% stenosis to near occlusion= ICA PSV > 230 cm/s: ratio > 4.0: ICA EDV > 100 cm/s. 5. Near occlusion= ICA PSV velocities may be low or undetectable: variable ratio and ICA EDV. 6. Total occlusion=unable to detect flow.
[2020-09-11] MEDS: ATORVASTATIN 10 MG TAB PO SCH
[2020-09-11] MEDS: lisinopriL 5 MG TAB PO SCH ×2 (00:01→09:09)
[2020-09-11] MEDS: HYDROcodone/APAP 5-325MG 1 EACH TAB PO SCH (00:01)
[2020-09-11] MEDS: APIXABAN 2.5 MG TABLET PO SCH ×2 (00:01→09:09)
[2020-09-11] MEDS: SYMBICORT 80-4.5 MCG INHALER INHALATION SCH (07:54)
[2020-09-11] MEDS: IPRATROPIUM-ALBUTEROL 3 ML NEB INHALATION SCH ×2 (07:54→11:17)
[2020-09-11 09:08] VITALS: RESP 18
[2020-09-11] MEDS: METOPROLOL SUCCINATE (ER) 100 MG TAB.ER.24H PO SCH (09:08)
[2020-09-11] MEDS: PANTOPRAZOLE 40 MG TABLET PO SCH (09:08)
[2020-09-11] MEDS: predniSONE 5 MG TAB PO SCH (09:09)
[2020-09-11] MEDS: FLECAINIDE 50 MG TAB PO SCH ×2 (09:09)
--- NOTE | 2020-09-11 12:04 | P.CRDCN ---
History of Present Illness Consult date: 09/11/20 History of present illness: HISTORY OF PRESENT ILLNESS: This is a 85-year-old female with a past medical history significant for paroxysmal atrial fibrillation on long-term intake regulation with Eliquis, hypertension, hyperlipidemia, and COPD with home oxygen use. Patient follows in the office with Dr. El. We have been asked to see the patient in consultation for syncope. Patient examined at the bedside. Patient gives history of falling earlier this year when she was visiting her dying hospital and broke her arm and was sent to [facility] for rehab. She has since been living with her son. Patient reports she has been having episodes of dizziness for the last 6 months or so. She states these episodes have increased in frequency recently. Patient reports on Thursday she was sitting in the chair when all of a sudden she began to feel dizzy. She states she used her arms to hold onto the chair and the next thing she knew she passed out. Patient does not believe she was out for a long time. She states when she came to she does not think she was confused. She states she had about 7-8 of these episodes on Thursday. She states these ep isodes have never occurred when she is ambulating and mostly occur when she is sitting in a chair. She denies biting her tongue. Denies loss of bowel or bladder. Orthostatic blood pressures obtained and unremarkable. Patient had a 24 hour holter monitor in June 2020 showing sinus mechanism with no significant arrhythmias. Patient states she did not have any of these episodes while she wore her Holter monitor. Echocardiogram performed in May 2020 revealed ejection fraction 65%, moderate tricuspid regurgitation, and mild to moderate mitral regurgitation Patient underwent dobutamine stress test in 2014 which was negative for ischemia. EKG reveals sinus rhythm with first-degree AV block Chest xray mild scarring at right lung apex. No active cardiopulmonary disease. Normal heart. Carotid ultrasound: Left carotid with 50-69% stenosis and right carotid with less than 50% stenosis Laboratory data: WBC 5.65. Hemoglobin 9.7. Platelet count 232. Sodium 143. Potassium 4.9. BUN 17. Creatinine 0.8. Troponin negative 1. Current home cardiac medications include lisinopril 5 mg twice a day, simvastatin 10 mg daily, metoprolol succinate 200 mg daily, flecainide 50 mg every 12 hours, and Eliquis 2.5 mg twice a day REVIEW OF SYSTEMS: At the time of my exam: CONSTITUTIONAL: Denies fever or chills. HEENT: Denies blurred vision, vision changes, or eye pain. Denies hemoptysis CARDIOVASCULAR: Denies chest pain. Denies orthopnea. Denies PND. Denies p alpitations RESPIRATORY: Denies shortness of breath. GASTROINTESTINAL: Denies abdominal pain. Denies nausea or vomiting. HEMATOLOGIC: Denies bleeding disorders. GENITOURINARY: Denies any blood in urine. SKIN: Denies pruitis. Denies rash. PHYSICAL EXAM: VITAL SIGNS: Reviewed. GENERAL: Well-developed in no acute distress. HEENT: Head is normocephalic. Pupils are equal, round. Sclerae anicteric. Mucous membranes of the mouth are moist. Neck supple. No JVD or thyromegaly LUNGS: Respirations even and unlabored. Lungs clear bilaterally. HEART: Regular rate and rhythm. S1 and S2 heard. Systolic murmur noted. ABDOMEN: Soft. Nondistended. Nontender. EXTREMITIES: Normal range of motion. No clubbing or cyanosis. Peripheral pulses intact. No lower extremity edema NEUROLOGIC: Awake and alert. Oriented x 3. ASSESSMENT: Multiple episodes of dizziness followed by brief episodes of LOC, etiology unclear Paroxysmal atrial fibrillation, on anticoagulation with Eliquis Hypertension Hyperlipidemia COPD with home oxygen use Former nicotine dependence Recent fall resulting in left arm fracture PLAN: Orthostatic blood pressures obtained and unremarkable Continue current cardiac medications Continue Eliquis Neurology follow. 2D echo ordered per neurology. Await results Continue telemetry to assess for any significant bradycardia or arrhythmias to account for patient's symptoms Event monitor at the time of discharge for 30 days as patient did not have any of these episodes when she wore the holter monitor for 24 hours Further recommendations pending patient course Nurse practitioner note has been reviewed by physician. Signing provider agrees with the documented findings, assessment, and plan of care. Past Medical History Past Medical History: Atrial Fibrillation, COPD, CVA/TIA, Hypertension Additional Past Medical History / Comment(s): left wrist fracture History of Any Multi-Drug Resistant Organisms: None Reported Additional Past Surgical History / Comment(s): hemorroidectomy Past Anesthesia/Blood Transfusion Reactions: No Reported Reaction Past Psychological History: No Psychological Hx Reported Smoking Status: Former smoker Past Alcohol Use History: None Reported Past Drug Use History: None Reported Medications and Allergies Home Medications Medication Instructions Recorded Confirmed Type Albuterol Inhaler [Ventolin Hfa 1 puff INHALATION RT-Q4H PRN 09/08/20 09/08/20 History Inhaler] Apixaban [Eliquis] 2.5 mg PO BID 09/08/20 09/08/20 History Calcium Carbonate [Calcium] 600 mg PO BID@0800,1700 09/08/20 09/08/20 History Flecainide [Tambocor] 50 mg PO Q12HR 09/08/20 09/08/20 History Fluticasone/Umeclidin/Vilanter 1 puff INHALATION RT-DAILY 09/08/20 09/08/20 History [Trelegy Ellipta 100-62.5-25] HYDROcodone/APAP 5-325MG [[place] 1 tab PO HS 09/08/20 09/08/20 History 5-325] Ipratropium-Albuterol Nebulize 3 ml INHALATION RT-QID 09/08/20 09/08/20 History [Duoneb 0.5 mg-3 mg/3 ml Soln] LORazepam [Ativan] 0.5 mg PO TID PRN 09/08/20 09/08/20 History Metoprolol Succinate 200 mg PO DAILY 09/08/20 09/08/20 History Multivitamins, Thera [Multivitamin 1 tab PO BID@0800,1700 09/08/20 09/08/20 History (formulary)] Nitroglycerin Sl Tabs [Nitrostat] 0.4 mg SUBLINGUAL Q5M PRN 09/08/20 09/08/20 History Omeprazole 20 mg PO DAILY 09/08/20 09/08/20 History Simvastatin [Zocor] 10 mg PO HS 09/08/20 09/08/20 History lisinopriL [Zestril] 5 mg PO BID 09/08/20 09/08/20 History predniSONE 5 mg PO DAILY 09/08/20 09/08/20 History Allergies Allergy/AdvReac Type Severity Reaction Status Date / Time No Known Allergies Allergy Verified 09/08/20 16:59 Physical Exam Vitals: Vital Signs Temp Pulse Pulse Pulse Pulse Pulse Resp 09/11/20 11:29 68 09/11/20 11:19 64 09/11/20 10:51 60 60 58 L 09/11/20 08:03 76 09/11/20 08:00 61 18 09/11/20 07:56 76 09/11/20 07:00 97.6 F 61 18 09/11/20 02:00 97.5 F L 56 L 16 09/10/20 20:00 16 09/10/20 19:20 98.6 F 80 69 18 09/10/20 19:12 79 09/10/20 15:29 79 09/10/20 15:21 78 09/10/20 15:15 97.4 F L 73 16 BP BP BP Pulse Ox 09/11/20 11:29 09/11/20 11:19 09/11/20 10:51 132/58 121/53 115/58 09/11/20 08:03 09/11/20 08:00 09/11/20 07:56 09/11/20 07:00 141/67 93 L 09/11/20 02:00 108/57 98 09/10/20 20:00 09/10/20 19:20 136/74 93 L 09/10/20 19:12 09/10/20 15:29 09/10/20 15:21 09/10/20 15:15 161/77 96 Intake and Output 09/10/20 09/11/20 09/11/20 22:59 06:59 14:59 Other: Voiding Method Bedside Commode Bedside Commode # Voids 3 Results 09/09/20 06:27 09/09/20 06:27 Current Medications Generic Name Dose Route Start Last Admin Trade Name Freq PRN Reason Stop Dose Admin Hydrocodone Bitart/Acetaminophen 1 each 09/08/20 21:00 09/11/20 00:01 Hydrocodone/Apap 5-325mg 1 Each Tab PO 1 each HS LIANG Administration Albuterol/Ipratropium 3 ml 09/08/20 20:00 09/11/20 11:17 Ipratropium-Albuterol 3 Ml Neb INHALATION 3 ml RT-QID LIANG Administration Apixaban 2.5 mg 09/08/20 21:00 09/11/20 09:09 Apixaban 2.5 Mg Tablet PO 2.5 mg BID LIANG Administration Protocol Atorvastatin Calcium 10 mg 09/08/20 21:00 09/11/20 00:00 Atorvastatin 10 Mg Tab PO 10 mg HS LIANG Administration Budesonide/Formoterol Fumarate 2 puff 09/09/20 08:00 09/11/20 07:54 Symbicort 80-4.5 Mcg Inhaler INHALATION 2 puff RT-BID LIANG Administration Flecainide Acetate 50 mg 09/08/20 21:00 09/11/20 09:09 Flecainide 50 Mg Tab PO 50 mg Q12HR LIANG Administration Lisinopril 5 mg 09/08/20 21:00 09/11/20 09:09 Lisinopril 5 Mg Tab PO 5 mg BID LIANG Administration Metoprolol Succinate 200 mg 09/09/20 09:00 09/11/20 09:08 Metoprolol Succinate (Er) 100 Mg Tab.Er.24h PO 200 mg DAILY LIANG Administration Pantoprazole Sodium 40 mg 09/09/20 07:30 09/11/20 09:08 Pantoprazole 40 Mg Tablet PO 40 mg [id number] LIANG Administration Prednisone 5 mg 09/09/20 09:00 09/11/20 09:09 Prednisone 5 Mg Tab PO 5 mg DAILY LIANG Administration Intake and Output 09/10/20 09/11/20 09/11/20 22:59 06:59 14:59 Other: Voiding Method Bedside Commode Bedside Commode # Voids 3 09/09/20 06:27 09/09/20 06:27
--- NOTE | 2020-09-11 12:04 | ECHOF ---
Referral Reason:Recurrent syncope, rule out cardiac cause MEASUREMENTS -------- HEIGHT: 152.4 cm WEIGHT: 47.6 kg BP: RVIDd: 3.1 cm (< 3.3) IVSd: 0.9 cm (0.6 - 1.1) LVIDd: 4.6 cm (3.9 - 5.3) LVPWd: 1.0 cm (0.6 - 1.1) IVSs: 1.2 cm LVIDs: 3.0 cm LVPWs: 1.3 cm LA Diam: 3.6 cm (2.7 - 3.8) Ao Diam: 3.1 cm (2.0 - 3.7) AV Cusp: 1.6 cm (1.5 - 2.6) LA Diam: 3.8 cm (2.7 - 3.8) MV EXCURSION: 19.740 mm (> 18.000) MV EF SLOPE: 130 mm/s (70 - 150) EPSS: 0.6 cm MV E Martir: 0.85 m/s MV DecT: 174 ms MV A Martir: 0.75 m/s MV E/A Ratio: 1.14 RAP: 5.00 mmHg RVSP: 17.13 mmHg FINDINGS -------- Sinus rhythm. This was a technically adequate study. LV size, wall thickness and systolic function are normal, with an EF greater than 55%. The left guillaume tricular size is normal. The right ventricle is normal in size. The left atrium is normal in size. The right atrial size is normal. Agitated Saline study is negative, no crossing at atrial level or right to left shunt noted. There is moderate aortic valve sclerosis. Mild mitral annular calcification present. Mild mitral regurgitation is present. The tricuspid valve appears structurally normal. Mild tricuspid regurgitation present. Right vent ricular systolic pressure is normal at < 35 mmHg. Trace/mild (physiologic) pulmonic regurgitation. The aortic root size is normal. There is no pericardial effusion. CONCLUSIONS -------- 1. LV size, wall thickness and systolic function are normal, with an EF greater than 55%. 2. The left atrium is normal in size. 3. Agitated Saline study is negative, no crossing at atrial level or right to left shunt noted. 4. There is moderate aortic valve sclerosis. 5. Mild mitral regurgitation is present. 6. Mild tricuspid regurgitation present. 7. Trace/mild (physiologic) pulmonic regurgitation. 8. There is no pericardial effusion. DISTRIBUTION SYSTEM OPERATOR: Isabela Abrams RDCS
--- NOTE | 2020-09-11 14:04 | P.DS ---
Providers Date of admission: 09/08/20 17:34 Expected date of discharge: 09/11/20 Attending physician: Jak Walsh MD Consults: 09/08/20 17:35 Consult Physician Urgent Consulting Provider: Meron Rojo Consult Reason/Comments: Unresponsive episodes Do you want consulting provider notified?: Yes 09/11/20 10:02 Consult Physician Urgent Consulting Provider: Mik Del Valle Consult Reason/Comments: syncope Do you want consulting provider notified?: Yes Primary care physician: Norris Hermosillo MD Hospital Course: Discharge Diagnosis: Syncope of unclear etiology Moderate aortic stenosis COPD with chronic hypoxic respiratory failure Paroxysmal atrial fibrillation Hypertension Hyperlipidemia Hospital Course: 85-year-old female with A. fib on Eliquis COPD on home oxygen hypertension who presented with multiple episodes of passing out. Patient was admitted for evaluation for syncope. Patient was seen by neurology. She had an MRI that showed vague area of enhancement in the cerebellar hemisphere with no abnormal T1 or T2 signal clearly seen at this level. Neurology discussed with radiologist who said this is likely an artifact. Patient's EEG was negative for epileptiform activity. Patient's orthostatics were negative. Patient's 2-D echo showed EF of 55% and negative bubble study. There was moderate aortic stenosis. Patient was also seen by cardiology. Cardiology recommended event monitor on discharge. Patient did not have any further episodes of syncope while in the hospital. Patient was deemed stable for discharge with close follow-up with cardiology and neurology. Patient states that she no longer drives. Patient was counseled not to take showers alone. I'll discontinue patient's Ativan as it may be contributing to her episodes of passing out. Patient seen and examined at bedside.[] Vital signs reviewed and stable. General: [non toxic], [no distress], [appears at stated age], elderly frail lady Derm: [warm], [dry] Head: [atraumatic], [normocephalic], [symmetric] Eyes: [EOMI], [no lid lag], [anicteric sclera] Mouth: [no lip lesion], [mucus membranes moist] Cardiovascular: [S1S2 reg], [systolic murmur in the aortic area], [positive posterior tibial pulse bilateral], Lungs: [CTA bilateral], [no rhonchi, no rales] , [no accessory muscle use] Abdominal: [soft], [ nontender to palpation], [no guarding], [no appreciable organomegaly] Ext: [no gross muscle atrophy], [no edema], [no contractures] Neuro: [ CN II-XI grossly intact], [no focal neuro deficits] Psych: [Alert], [oriented], [appropriate affect] A total of [32] minutes of time were spent preparing this complex discharge summary . Patient Condition at Discharge: Fair Plan - Discharge Summary Discharge Rx Participant: No New Discharge Prescriptions: Continue Simvastatin [Zocor] 10 mg PO HS Fluticasone/Umeclidin/Vilanter [Trelegy Ellipta 100-62.5-25] 1 puff INHALATION RT-DAILY Nitroglycerin Sl Tabs [Nitrostat] 0.4 mg SUBLINGUAL Q5M PRN PRN Reason: Chest Pain Metoprolol Succinate 200 mg PO DAILY HYDROcodone/APAP 5-325MG [[place] 5-325] 1 tab PO HS Flecainide [Tambocor] 50 mg PO Q12HR Multivitamins, Thera [Multivitamin (formulary)] 1 tab PO BID@0800,1700 predniSONE 5 mg PO DAILY Omeprazole 20 mg PO DAILY Calcium Carbonate [Calcium] 600 mg PO BID@0800,1700 Albuterol Inhaler [Ventolin Hfa Inhaler] 1 puff INHALATION RT-Q4H PRN PRN Reason: Shortness Of Breath lisinopriL [Zestril] 5 mg PO BID Ipratropium-Albuterol Nebulize [Duoneb 0.5 mg-3 mg/3 ml Soln] 3 ml INHALATION RT-QID Apixaban [Eliquis] 2.5 mg PO BID Discontinued LORazepam [Ativan] 0.5 mg PO TID PRN PRN Reason: Anxiety Discharge Medication List Albuterol Inhaler [Ventolin Hfa Inhaler] 1 puff INHALATION RT-Q4H PRN 09/08/20 [History] Apixaban [Eliquis] 2.5 mg PO BID 09/08/20 [History] Calcium Carbonate [Calcium] 600 mg PO BID@0800,1700 09/08/20 [History] Flecainide [Tambocor] 50 mg PO Q12HR 09/08/20 [History] Fluticasone/Umeclidin/Vilanter [Trelegy Ellipta 100-62.5-25] 1 puff INHALATION RT-DAILY 09/08/20 [History] HYDROcodone/APAP 5-325MG [[place] 5-325] 1 tab PO HS 09/08/20 [History] Ipratropium-Albuterol Nebulize [Duoneb 0.5 mg-3 mg/3 ml Soln] 3 ml INHALATION RT-QID 09/08/20 [History] Metoprolol Succinate 200 mg PO DAILY 09/08/20 [History] Multivitamins, Thera [Multivitamin (formulary)] 1 tab PO BID@0800,1700 09/08/20 [History] Nitroglycerin Sl Tabs [Nitrostat] 0.4 mg SUBLINGUAL Q5M PRN 09/08/20 [History] Omeprazole 20 mg PO DAILY 09/08/20 [History] Simvastatin [Zocor] 10 mg PO HS 09/08/20 [History] lisinopriL [Zestril] 5 mg PO BID 09/08/20 [History] predniSONE 5 mg PO DAILY 09/08/20 [History] Follow up Appointment(s)/Referral(s): [facility] [NON-STAFF] - 1-2 Days Norris Hermosillo MD [Primary Care Provider] - 1-2 days De El MD [STAFF PHYSICIAN] - 1 Week Tashia Genao MD [STAFF PHYSICIAN] - 1 Week Discharge Disposition: HOME SELF-CARE
[2020-09-11 16:06] VITALS: BP 110/52; PULSE 61; TEMP 98.1
== END 2020-09-11 15:56 | disposition home or self-care (01) ==
LOC: EC 15:26 → 6NMEDSUR 17:34
PROVIDERS: ADMIT Internal Medicine; ATTEND Internal Medicine
DX: R55 Syncope and collapse (principal); I08.3 Combined rheumatic disorders of mitral, aortic and tricuspid valves; J44.9 Chronic obstructive pulmonary disease, unspecified; J96.11 Chronic respiratory failure with hypoxia; Z20.822 Contact with and (suspected) exposure to COVID-19; I48.0 Paroxysmal atrial fibrillation; I44.0 Atrioventricular block, first degree; I10 Essential (primary) hypertension; E78.5 Hyperlipidemia, unspecified; Z79.899 Other long term (current) drug therapy; Z79.01 Long term (current) use of anticoagulants; Z87.81 Personal history of (healed) traumatic fracture; Z99.81 Dependence on supplemental oxygen; Z91.81 History of falling; Z87.891 Personal history of nicotine dependence; Z86.73 Personal history of transient ischemic attack (TIA), and cerebral infarction without residual deficits; Z87.19 Personal history of other diseases of the digestive system
CPT/HCPCS: 99285; 36415; 94640 ×7; 94760; 95816; 93005; 93306; 97161; 97166; 80053 ×2; 84484; 85025 ×2; 85610; 85730; 81003; 87635; 71046; 93880; 70450; 70553; G0378 ×4; J7512 ×3; A9585

== ENCOUNTER 2020-09-20 12:01 | Inpatient (IN) | payer MEDICARE, BC ==
[2020-09-20] MEDS ORDERED: SODIUM CHLORIDE 0.9% 1,000 ML IV STA (12:30)
[2020-09-20 12:48] LABS: Basophils # (A) 0.1 k/uL (0-0.2); Basophils % (A) 1 %; Eosinophils % (A) 0 %; HCT 36.5 % (34.0-46.0); HGB 11.2 gm/dL (11.4-16.0); Hypochromasia Moderate; Lymphocytes # (A) 1.1 k/uL (1.0-4.8); Lymphocytes % (A) 14 %; MCH 27.1 pg (25.0-35.0); MCHC 30.8 g/dL (31.0-37.0); MCV 88.2 fL (80.0-100.0); Monocytes # (A) 0.3 k/uL (0-1.0); Monocytes % (A) 4 %; Neutrophils # (A) 6.3 k/uL (1.3-7.7); Neutrophils % (A) 80 %; Platelet Count 292 k/uL (150-450); RBC 4.14 m/uL (3.80-5.40); RDW 14.4 % (11.5-15.5); WBC 7.9 k/uL (3.8-10.6)
--- NOTE | 2020-09-20 12:54 | ED ---
General Adult HPI - General Chief complaint: Syncope Stated complaint: Heart Stopping/Passing out Time Seen by Provider: 09/20/20 12:23 Source: patient, family Mode of arrival: wheelchair Limitations: no limitations - History of Present Illness Initial comments: This 85-year-old female presents with her son with a complaint of syncope. She apparently has been having episodes which sound like syncope for at least the last 3-4 months. She was hospitalized a couple weeks ago and had a full workup in this regard. She saw Dr. Wolff in regards to possible arrhythmia. He apparently initiated an event monitor. This past evening she apparently also had a syncopal event. She also had 2 or 3 syncopal events this morning. She did not sustain any injuries. The cardiac monitoring company apparently evaluated her rhythm and found that she was going into atrial fibrillation but then when these episodes resolved she had a 6-7 seconds cause of asystole. She would pass out during this time per the son. She was sent to the emergency department for admission. She currently is scheduled to get a pacemaker placed and 4 days. She denies any chest pain, shortness of breath, abdominal pain, or any injuries. She feels much improved at this time. - Related Data Home Medications Medication Instructions Recorded Confirmed Albuterol Inhaler [Ventolin Hfa 1 puff INHALATION RT-Q4H PRN 09/08/20 09/20/20 Inhaler] Apixaban [Eliquis] 2.5 mg PO BID 09/08/20 09/20/20 Calcium Carbonate [Calcium] 600 mg PO BID@0800,1700 09/08/20 09/20/20 Fluticasone/Umeclidin/Vilanter 1 puff INHALATION RT-DAILY 09/08/20 09/20/20 [Trelegy Ellipta 100-62.5-25] HYDROcodone/APAP 5-325MG [[place] 1 tab PO HS 09/08/20 09/20/20 5-325] Ipratropium-Albuterol Nebulize 3 ml INHALATION RT-QID 09/08/20 09/20/20 [Duoneb 0.5 mg-3 mg/3 ml Soln] Multivitamins, Thera [Multivitamin 1 tab PO BID@0800,1700 09/08/20 09/20/20 (formulary)] Omeprazole 20 mg PO DAILY 09/08/20 09/20/20 Simvastatin [Zocor] 10 mg PO HS 09/08/20 09/20/20 lisinopriL [Zestril] 5 mg PO BID 09/08/20 09/20/20 predniSONE 5 mg PO DAILY 09/08/20 09/20/20 Fexofenadine HCl [[place] Allergy] 180 mg PO DAILY 09/19/20 09/20/20 Allergies Allergy/AdvReac Type Severity Reaction Status Date / Time No Known Allergies Allergy Verified 09/20/20 12:13 Review of Systems ROS Statement: Those systems with pertinent positive or pertinent negative responses have been documented in the HPI. ROS Other: All systems not noted in ROS Statement are negative. Past Medical History Past Medical History: Atrial Fibrillation, COPD, CVA/TIA, GERD/Reflux, Hypertension, Memory Impairment, Musculoskeletal Disorder, Osteoarthritis (OA) Additional Past Medical History / Comment(s): left wrist, shoulder & forearm fracture in Mar. after a fall, uses oxygen cont. @2l, recent hospitalization for episodes of passing out, osteoporosis, very tender ankles & lower legs, very thin skin, see Dr El H & P History of Any Multi-Drug Resistant Organisms: None Reported Additional Past Surgical History / Comment(s): hemorroidectomy Past Anesthesia/Blood Transfusion Reactions: No Reported Reaction Past Psychological History: No Psychological Hx Reported Smoking Status: Former smoker Past Alcohol Use History: None Reported Past Drug Use History: None Reported General Exam - General Exam Comments Initial Comments: GENERAL: The patient is well nourished and well hydrated. VITAL SIGNS: Heart rate, blood pressure, respiratory rate reviewed as recorded in nurse's notes. EYES: Pupils are round and reactive. Extraocular movements are intact. No co njunctival / lid redness or swelling. ENT: No external evidence of injury, swelling, or ecchymosis. Airway is patent. Throat is clear. NECK: Nontender. No swelling or evidence of injury. No subcutaneous emphysema. Trachea is midline. No thyroid mass. HEART: Regular rate and rhythm. Good peripheral pulses. LUNGS/CHEST: Breath sounds clear and equal bilaterally. No rales, rhonchi, or wheezes. No ecchymosis, subcutaneous emphysema, or tenderness. ABDOMEN: Abdomen soft without tenderness. No palpable masses or organomegaly. No peritoneal signs. No abdominal wall swelling or ecchymosis. EXTREMITIES: No extremity tenderness. Normal muscle tone and function. No thoracolumbar tenderness. NEUROLOGIC: Sensation is grossly intact. Cranial nerve exam reveals face is symmetrical, tongue is midline, speech is clear. SKIN: No abrasions or ecchymosis is noted. No induration or masses noted. PSYCHIATRIC: Alert and oriented. Appropriate behavior and judgment. Limitations: no limitations Course Vital Signs 09/20/20 09/20/20 12:08 14:00 Temperature 97.7 F Pulse Rate 88 82 Respiratory 22 18 Rate Blood Pressure 128/65 132/79 O2 Sat by Pulse 97 100 Oximetry Medical Decision Making - Medical Decision Making The patient was seen and examined. All diagnostics were reviewed. The EKG shows a normal sinus rhythm at a rate of 84. There is some mild T-wave inversion noted in V1 and V2. There is no other acute ST-T wave changes identified. The FL intervals 172, QRS duration is 70, and the QTc interval is 399. Laboratory is reviewed and shows a mild anemia. The remainder labs is unremarkable. The chest x-ray does not show any acute process. It sounds as though the patient is having significant arrhythmias per her event monitor and will require admission to the hospital for further cardiology evaluation and potentially may need a pacemaker done sooner than Thursday. Patient is agreeable. Son is updated as well. Patient will be admitted to the telemetry unit for further treatment. Case will be discussed with internal medicine shortly and patient will be admitted with cardiology to consult. - Lab Data Result diagrams: 09/20/20 12:30 09/20/20 12:30 Lab Results 09/20/20 09/20/20 09/20/20 Range/Units 12:30 12:30 12:30 WBC 7.9 (3.8-10.6) k/uL RBC 4.14 (3.80-5.40) m/uL Hgb 11.2 L (11.4-16.0) gm/dL Hct 36.5 (34.0-46.0) % MCV 88.2 (80.0-100.0) fL MCH 27.1 (25.0-35.0) pg MCHC 30.8 L (31.0-37.0) g/dL RDW 14.4 (11.5-15.5) % Plt Count 292 (150-450) k/uL MPV 7.0 Neutrophils % 80 % Lymphocytes % 14 % Monocytes % 4 % Eosinophils % 0 % Basophils % 1 % Neutrophils # 6.3 (1.3-7.7) k/uL Lymphocytes # 1.1 (1.0-4.8) k/uL Monocytes # 0.3 (0-1.0) k/uL Eosinophils # 0.0 (0-0.7) k/uL Basophils # 0.1 (0-0.2) k/uL Hypochromasia Moderate PT 10.0 (9.0-12.0) sec INR 0.9 (<1.2) APTT 22.7 (22.0-30.0) sec Sodium 143 (137-145) mmol/L Potassium 4.6 (3.5-5.1) mmol/L Chloride 103 (98-107) mmol/L Carbon Dioxide 36 H (22-30) mmol/L Anion Gap 4 mmol/L BUN 17 (7-17) mg/dL Creatinine 0.68 (0.52-1.04) mg/dL Est GFR (CKD-EPI)AfAm >90 (>60 ml/min/1.73 sqM) Est GFR (CKD-EPI)NonAf 79 (>60 ml/min/1.73 sqM) Glucose 95 (74-99) mg/dL Calcium 9.9 (8.4-10.2) mg/dL Total Bilirubin 0.6 (0.2-1.3) mg/dL AST 30 (14-36) U/L ALT 19 (4-34) U/L Alkaline Phosphatase 49 (38-126) U/L Troponin I (0.000-0.034) ng/mL Total Protein 6.7 (6.3-8.2) g/dL Albumin 4.0 (3.5-5.0) g/dL 09/20/20 Range/Units 12:30 WBC (3.8-10.6) k/uL RBC (3.80-5.40) m/uL Hgb (11.4-16.0) gm/dL Hct (34.0-46.0) % MCV (80.0-100.0) fL MCH (25.0-35.0) pg MCHC (31.0-37.0) g/dL RDW (11.5-15.5) % Plt Count (150-450) k/uL MPV Neutrophils % % Lymphocytes % % Monocytes % % Eosinophils % % Basophils % % Neutrophils # (1.3-7.7) k/uL Lymphocytes # (1.0-4.8) k/uL Monocytes # (0-1.0) k/uL Eosinophils # (0-0.7) k/uL Basophils # (0-0.2) k/uL Hypochromasia PT (9.0-12.0) sec INR (<1.2) APTT (22.0-30.0) sec Sodium (137-145) mmol/L Potassium (3.5-5.1) mmol/L Chloride (98-107) mmol/L Carbon Dioxide (22-30) mmol/L Anion Gap mmol/L BUN (7-17) mg/dL Creatinine (0.52-1.04) mg/dL Est GFR (CKD-EPI)AfAm (>60 ml/min/1.73 sqM) Est GFR (CKD-EPI)NonAf (>60 ml/min/1.73 sqM) Glucose (74-99) mg/dL Calcium (8.4-10.2) mg/dL Total Bilirubin (0.2-1.3) mg/dL AST (14-36) U/L ALT (4-34) U/L Alkaline Phosphatase (38-126) U/L Troponin I <0.012 (0.000-0.034) ng/mL Total Protein (6.3-8.2) g/dL Albumin (3.5-5.0) g/dL Disposition Clinical Impression: Syncope Disposition: ADMITTED IP TO THIS HOSP Condition: Fair Is patient prescribed a controlled substance at d/c from ED?: No Referrals: Norris Hermosillo MD [Primary Care Provider] - 1-2 days Time of Disposition: 14:23 Decision Date: 09/20/20 Decision Time: 14:23
[2020-09-20 13:03] LABS: INR 0.9 (<1.2)
[2020-09-20 13:04] LABS: Partial Thromboplastin Time 22.7 sec (22.0-30.0)
[2020-09-20 13:21] LABS: ALT 19 U/L (4-34); AST 30 U/L (14-36); African American GFR (CKD) >90 (>60 ml/min/1.73 sqM); Alkaline Phosphatase 49 U/L (38-126); Anion Gap 4 mmol/L; Blood Urea Nitrogen 17 mg/dL (7-17); Calcium 9.9 mg/dL (8.4-10.2); Carbon Dioxide 36 mmol/L (22-30); Chloride 103 mmol/L (98-107); Glucose 95 mg/dL (74-99); Non-African American GFR(CKD) 79 (>60 ml/min/1.73 sqM); Potassium 4.6 mmol/L (3.5-5.1); Sodium 143 mmol/L (137-145); Total Bilirubin 0.6 mg/dL (0.2-1.3); Total Protein 6.7 g/dL (6.3-8.2)
--- NOTE | 2020-09-20 13:58 | XR ---
EXAMINATION TYPE: XR chest 1V portable DATE OF EXAM: 09/20/2020 COMPARISON: 09/08/2020 HISTORY: Syncope TECHNIQUE: Single frontal view of the chest is obtained. FINDINGS: There is no focal air space opacity, pleural effusion, or pneumothorax seen. Radiopaque de nsity overlies the mediastinum, presumably external to the patient but clinical correlation is recomm ended. IMPRESSION: Radiopaque density overlies the mediastinum, presumably external to the patient but clin ical correlation is recommended.
[2020-09-20] MEDS ORDERED: ONDANSETRON 4 MG/2 ML VIAL IVP PRN (14:26)
[2020-09-20] MEDS ORDERED: MELATONIN 3 MG TABLET PO PRN (14:29)
[2020-09-20] MEDS ORDERED: ACETAMINOPHEN TAB 325 MG TAB PO PRN (14:29)
[2020-09-20] MEDS ORDERED: NALOXONE 0.4 MG/ML 1 ML VIAL IV PRN (14:29)
[2020-09-20] MEDS ORDERED: ALBUTEROL HFA INHALER INHALATION PRN (14:31)
--- NOTE | 2020-09-20 15:47 | P.HPIM ---
History of Present Illness H&P Date: 09/20/20 Chief Complaint: syncope 85 year old woman with history of multiple falls, COPD, paroxysmal atrial fibrillation, HTN presented with recurrent episode of syncope. Pt has been having multiple episodes of syncope, often resulting in falls with fractures over the course of the previous 6 months, but these episodes have acutely worsened over the last several weeks. She was recently seen and discharged here for similar presentation, and had work up for seizures which were ruled out. She was also monitored on telemetry, but had no arrhythmic events during prior hospitalization with echo demonstrating preserved structure and function of the heart. On day of discharge, she was sent home with 30 day event monitor. She was notified shortly thereafter that she was having episodes of atrial fibrillation with RVR followed by spontaneous conversion to sinus rhythm after 5-6s pause. Patient and family note that patients symptoms have been increasing in frequency during this time. Based on her cardiac workup, Dr. Ibrahim recommended pacemaker placement, which was scheduled for 09/26, however, due to ongoing episodes of syncope (including the 3 episodes from this morning alone) she presented to the ER for further evaluation. In the ER, she is HDS with EKG demonstrating first degree AVB at a rate of mid- 80s without ischemic ST-T wave changes. Review of Systems All Systems reviewed and pertinent positives and negatives noted in HPI, all other symptoms are negative Past Medical History Past Medical History: Atrial Fibrillation, COPD, CVA/TIA, GERD/Reflux, Hypertension, Memory Impairment, Musculoskeletal Disorder, Osteoarthritis (OA) Additional Past Medical History / Comment(s): left wrist, shoulder & forearm fracture in Mar. after a fall, uses oxygen cont. @2l, recent hospitalization for episodes of passing out, osteoporosis, very tender ankles & lower legs, very thin skin, see Dr El H & P History of Any Multi-Drug Resistant Organisms: None Reported Additional Past Surgical History / Comment(s): hemorroidectomy Past Anesthesia/Blood Transfusion Reactions: No Reported Reaction Past Psychological History: No Psychological Hx Reported Smoking Status: Former smoker Past Alcohol Use History: None Reported Past Drug Use History: None Reported Medications and Allergies Home Medications Medication Instructions Recorded Confirmed Type Albuterol Inhaler [Ventolin Hfa 1 puff INHALATION RT-Q4H PRN 09/08/20 09/20/20 History Inhaler] Apixaban [Eliquis] 2.5 mg PO BID 09/08/20 09/20/20 History Calcium Carbonate [Calcium] 600 mg PO BID@0800,1700 09/08/20 09/20/20 History Fluticasone/Umeclidin/Vilanter 1 puff INHALATION RT-DAILY 09/08/20 09/20/20 History [Trelegy Ellipta 100-62.5-25] HYDROcodone/APAP 5-325MG [Jeff 1 tab PO HS 09/08/20 09/20/20 History 5-325] Ipratropium-Albuterol Nebulize 3 ml INHALATION RT-QID 09/08/20 09/20/20 History [Duoneb 0.5 mg-3 mg/3 ml Soln] Multivitamins, Thera [Multivitamin 1 tab PO BID@0800,1700 09/08/20 09/20/20 History (formulary)] Omeprazole 20 mg PO DAILY 09/08/20 09/20/20 History Simvastatin [Zocor] 10 mg PO HS 09/08/20 09/20/20 History lisinopriL [Zestril] 5 mg PO BID 09/08/20 09/20/20 History predniSONE 5 mg PO DAILY 09/08/20 09/20/20 History Fexofenadine HCl [Toyin Allergy] 180 mg PO DAILY 09/19/20 09/20/20 History Allergies Allergy/AdvReac Type Severity Reaction Status Date / Time No Known Allergies Allergy Verified 09/20/20 12:13 Physical Exam Osteopathic Statement: *. No significant issues noted on an osteopathic structural exam other than those noted in the History and Physical/Consult. Vitals: Vital Signs Temp Pulse Resp BP Pulse Ox 09/20/20 14:00 82 18 132/79 100 09/20/20 12:08 97.7 F 88 22 128/65 97 Intake and Output 09/20/20 09/20/20 09/20/20 06:59 14:59 22:59 Other: Weight 47.627 kg Gen: awake, alert HEENT: normocephalic, atraumatic, good hearing acuity, moist mucous membranes Resp: good air exchange, breathing comfortably with no accessory muscle use CVS: good distal perfusion x 4, GI: soft, NTTP, ND : no SPT, no CVAT, nichols catheter not present MSK: no pitting edema, no clubbing Neuro: non-focal, moving all extremities Psych: cooperative, euthymic mood Results CBC & Chem 7: 09/20/20 12:30 09/20/20 12:30 Labs: Abnormal Lab Results - Last 24 Hours (Table) 09/20/20 09/20/20 Range/Units 12:30 12:30 Hgb 11.2 L (11.4-16.0) gm/dL MCHC 30.8 L (31.0-37.0) g/dL Carbon Dioxide 36 H (22-30) mmol/L Assessment and Plan Assessment: Syncope Paroxysmal atrial fibrillation Sinus exit block -Admit to telemetry -Cardiology consult -Nothing by mouth in case a procedure -Hold all AV hortencia blocking agents -Falls precautions -PT/OT Hypertension History of CVA/TIA COPD without exacerbation GERD without esophagitis -Home medications reviewed and reconciled Patient is a full code Patient is on therapeutic anticoagulation with Eliquis
[2020-09-20] MEDS: IPRATROPIUM-ALBUTEROL 3 ML NEB INHALATION SCH ×2 (16:50→20:02)
[2020-09-20] MEDS: MULTIVITAMINS, THERA 1 EACH TAB PO SCH (17:55)
[2020-09-20] MEDS: CALCIUM CARBONATE 500 MG CHEWABLE PO SCH (17:55)
[2020-09-20 18:02] LABS: Appearance,Urine Cloudy (Clear); Bilirubin,Urine Negative (Negative); Blood,Urine Negative (Negative); Budding Yeast,Urine Few /hpf; Color,Urine Light Yellow; Glucose,Urine (UA) Negative (Negative); Ketones,Urine Negative (Negative); Leukocyte Esterase,Urine Small (Negative); Mucus,Urine Rare /hpf; Nitrite,Urine Negative (Negative); Protein,Urine Negative (Negative); RBC,Urine 1 /hpf (0-5); Urobilinogen,Urine <2.0 mg/dL (<2.0); WBC,Urine 3 /hpf (0-5)
[2020-09-20] MEDS: lisinopriL 5 MG TAB PO SCH (22:17)
[2020-09-20] MEDS: ATORVASTATIN 10 MG TAB PO SCH (22:17)
[2020-09-20] MEDS: HYDROcodone/APAP 5-325MG 1 EACH TAB PO SCH (22:17)
[2020-09-20] MEDS: APIXABAN 2.5 MG TABLET PO SCH (22:17)
[2020-09-21] MEDS: PANTOPRAZOLE 40 MG TABLET PO SCH (06:21)
[2020-09-21 07:39] LABS: Basophils # (A) 0.1 k/uL (0-0.2); Basophils % (A) 1 %; Eosinophils # (A) 0.1 k/uL (0-0.7); Eosinophils % (A) 3 %; HCT 30.4 % (34.0-46.0); Hypochromasia Slight; Lymphocytes # (A) 1.7 k/uL (1.0-4.8); Lymphocytes % (A) 34 %; MCH 28.8 pg (25.0-35.0); MCHC 32.9 g/dL (31.0-37.0); MCV 87.7 fL (80.0-100.0); Mean Platelet Volume 6.7; Monocytes # (A) 0.4 k/uL (0-1.0); Monocytes % (A) 8 %; Neutrophils # (A) 2.6 k/uL (1.3-7.7); Neutrophils % (A) 53 %; Platelet Count 240 k/uL (150-450); RBC 3.47 m/uL (3.80-5.40); RDW 14.4 % (11.5-15.5)
[2020-09-21 07:51] LABS: African American GFR (CKD) >90 (>60 ml/min/1.73 sqM); Anion Gap 1 mmol/L; Blood Urea Nitrogen 14 mg/dL (7-17); Calcium 9.3 mg/dL (8.4-10.2); Carbon Dioxide 34 mmol/L (22-30); Chloride 105 mmol/L (98-107); Glucose 85 mg/dL (74-99); Non-African American GFR(CKD) 85 (>60 ml/min/1.73 sqM); Potassium 4.3 mmol/L (3.5-5.1); Sodium 140 mmol/L (137-145)
[2020-09-21] MEDS: SYMBICORT 80-4.5 MCG INHALER INHALATION SCH ×2 (08:13→20:17)
[2020-09-21] MEDS: IPRATROPIUM-ALBUTEROL 3 ML NEB INHALATION SCH ×4 (08:13→20:17)
[2020-09-21] MEDS: lisinopriL 5 MG TAB PO SCH ×2 (08:53→20:30)
[2020-09-21] MEDS: MULTIVITAMINS, THERA 1 EACH TAB PO SCH ×2 (08:53→17:39)
[2020-09-21] MEDS: predniSONE 5 MG TAB PO SCH (08:53)
[2020-09-21] MEDS: LORATADINE 10 MG TAB PO SCH (08:53)
[2020-09-21] MEDS: CALCIUM CARBONATE 500 MG CHEWABLE PO SCH ×2 (08:53→17:39)
--- NOTE | 2020-09-21 11:32 | P.PN ---
Subjective Progress Note Date: 09/21/20 No new complaints. No events on telemetry overnight. Objective - Vital Signs Vital signs: Vital Signs Temp 97.4 F L 09/21/20 08:48 Pulse 90 09/21/20 11:22 Resp 20 09/21/20 08:48 BP 137/68 09/21/20 08:48 Pulse Ox 99 09/21/20 08:48 Intake & Output 09/20/20 09/21/20 09/21/20 18:59 06:59 18:59 Intake Total 225 Balance 225 Weight 47.627 kg 41 kg Intake: Intake, IV Titration 225 Amount Sodium Chloride 0.9% 1, 225 000 ml @ 75 mls/hr IV . [id number] [facility] Rx#:[id number] Other: Voiding Method Toilet # Voids 1 # Bowel Movements 1 - Exam Gen: awake, alert HEENT: normocephalic, atraumatic, good hearing acuity, moist mucous membranes Resp: good air exchange, breathing comfortably with no accessory muscle use CVS: good distal perfusion x 4, GI: soft, NTTP, ND : no SPT, no CVAT, nichols catheter not present MSK: no pitting edema, no clubbing Neuro: non-focal, moving all extremities Psych: cooperative, euthymic mood - Labs CBC & Chem 7: 09/21/20 06:48 09/21/20 06:48 Labs: Abnormal Lab Results - Last 24 Hours (Table) 09/20/20 09/20/20 09/20/20 Range/Units 12:30 12:30 17:46 RBC (3.80-5.40) m/uL Hgb 11.2 L (11.4-16.0) gm/dL Hct (34.0-46.0) % MCHC 30.8 L (31.0-37.0) g/dL Carbon Dioxide 36 H (22-30) mmol/L Urine Appearance Cloudy H (Clear) Ur Leukocyte Esterase Small H (Negative) Urine Mucus Rare H (None) /hpf Urine Yeast (Budding) Few H (None) /hpf 09/21/20 09/21/20 Range/Units 06:48 06:48 RBC 3.47 L (3.80-5.40) m/uL Hgb 10.0 L (11.4-16.0) gm/dL Hct 30.4 L (34.0-46.0) % MCHC (31.0-37.0) g/dL Carbon Dioxide 34 H (22-30) mmol/L Urine Appearance (Clear) Ur Leukocyte Esterase (Negative) Urine Mucus (None) /hpf Urine Yeast (Budding) (None) /hpf Assessment and Plan Assessment: Syncope Paroxysmal atrial fibrillation Sinus exit block -Admit to telemetry -Cardiology consult, pending recs -Nothing by mouth in case a procedure -Hold all AV hortencia blocking agents -Falls precautions -PT/OT Hypertension History of CVA/TIA COPD without exacerbation GERD without esophagitis -Home medications reviewed and reconciled Patient is a full code Patient is on therapeutic anticoagulation with Eliquis
[2020-09-21] MEDS: APIXABAN 2.5 MG TABLET PO SCH ×2 (12:27→19:04)
--- NOTE | 2020-09-21 17:37 | CONS ---
CONSULTATION HISTORY: Mrs. Donna Hansen is an 85-year-old elderly lady who has been admitted to the hospital through the emergency room. This lady sees Dr. El, has paroxysmal atrial fibrillation and has been having recurrent episodes of syncope and had an event monitor which revealed long pauses and she was advised to have a permanent pacemaker scheduled for Thursday the 24 of September. However, she came into the hospital after being called by the event monitoring company that she had a long pause and should go to the emergency room. She also felt 2 episodes of dizziness and lightheadedness. She is currently on Eliquis 2.5 mg b.i.d., simvastatin 10 mg, lisinopril 5 mg b.i.d. and takes Toyin and some pain medications. She has no allergies. PAST MEDICAL HISTORY: Remarkable for paroxysmal atrial fibrillation COPD quest previous history of TIA, hypertension, hyperlipidemia, and she has had some previous have hemorrhoidectomy surgery performed. At the time of my evaluation, she is resting comfortably without symptoms and appears to be in sinus rhythm. EKG revealed a sinus mechanism with mild left atrial abnormality. No acute changes laboratory data revealed no significant abnormalities. PHYSICAL EXAMINATION: On examination, blood pressure is 130/70, pulse rate is about 90 per minute. HEENT unremarkable. Fundus was not examined by me. Neck is supple. No JVD. I do not hear a carotid bruit. Heart exam reveals S1, S2. There is a short systolic murmur at left sternal border. Lungs are clear. Abdomen is soft, nontender. Lower extremities reveal normal pulses. No edema. Central nervous system grossly within normal limits. IMPRESSION: 1. This patient has a history of recurrent syncope with long pauses documented on event monitor. 2. Paroxysmal atrial fibrillation. 3. Hypertension. RECOMMENDATIONS: I am recommending that we can that we will perform pacemaker as scheduled on Thursday. I spoke to Dr. El and he will communicate with the nurse and make further recommendations. For now we will monitor her, probably hold Eliquis in preparation for the permanent pacemaker. We will continue to monitor her here in the telemetry unit. I discussed my thoughts in detail with the patient. Thank you very much for the consult indication. MMODL / IJN: [id number] /
[2020-09-21] MEDS ORDERED: DILTIAZEM DRIP BOLUS FROM BAG 1 MG SOLN IV ONE (18:33)
[2020-09-21] MEDS: DILTIAZEM 125 MG in SODIUM CHLORIDE 0.9% 100 ML IV SCH (19:05)
[2020-09-21] MEDS: HYDROcodone/APAP 5-325MG 1 EACH TAB PO SCH (20:30)
[2020-09-21] MEDS: ATORVASTATIN 10 MG TAB PO SCH (20:30)
[2020-09-22] MEDS: PANTOPRAZOLE 40 MG TABLET PO SCH (06:31)
[2020-09-22] MEDS: SYMBICORT 80-4.5 MCG INHALER INHALATION SCH ×2 (07:38→19:54)
[2020-09-22] MEDS: IPRATROPIUM-ALBUTEROL 3 ML NEB INHALATION SCH ×4 (07:38→19:53)
[2020-09-22] MEDS: APIXABAN 2.5 MG TABLET PO SCH ×2 (08:16→20:12)
[2020-09-22] MEDS: CALCIUM CARBONATE 500 MG CHEWABLE PO SCH ×2 (08:16→16:36)
[2020-09-22] MEDS: MULTIVITAMINS, THERA 1 EACH TAB PO SCH ×2 (08:16→16:36)
[2020-09-22] MEDS: lisinopriL 5 MG TAB PO SCH ×2 (08:17→20:13)
[2020-09-22] MEDS: predniSONE 5 MG TAB PO SCH (08:17)
[2020-09-22] MEDS: LORATADINE 10 MG TAB PO SCH (08:17)
--- NOTE | 2020-09-22 10:17 | P.PN ---
Subjective Progress Note Date: 09/22/20 No new complaints today. Pending PPM placement on Thursday. Objective - Vital Signs Vital signs: Vital Signs Temp 98.0 F 09/22/20 08:00 Pulse 139 H 09/22/20 08:27 Resp 16 09/22/20 08:00 BP 132/66 09/22/20 08:27 Pulse Ox 99 09/22/20 08:00 Intake & Output 09/21/20 09/22/20 09/22/20 18:59 06:59 18:59 Intake Total 120 262.166 120 Output Total 100 Balance 120 262.166 20 Weight 45 kg Intake: Intake, IV Titration 22.166 0 Amount Diltiazem 125 mg In 22.166 0 Sodium Chloride 0.9% 100 ml @ 5 MG/HR 5 mls/hr IV .Q24H [facility] Rx#:[id number] Oral 120 240 120 Output: Urine 100 Other: Voiding Method Toilet # Voids 0 800 # Bowel Movements 1 - Exam Gen: awake, alert HEENT: normocephalic, atraumatic, good hearing acuity, moist mucous membranes Resp: good air exchange, breathing comfortably with no accessory muscle use CVS: good distal perfusion x 4, GI: soft, NTTP, ND : no SPT, no CVAT, nichols catheter not present MSK: no pitting edema, no clubbing Neuro: non-focal, moving all extremities Psych: cooperative, euthymic mood - Labs CBC & Chem 7: 09/21/20 06:48 09/21/20 06:48 Assessment and Plan Assessment: Syncope Paroxysmal atrial fibrillation Sinus exit block -Admit to telemetry -Cardiology consult, PPM placement on Thursday -regular diet -Hold all AV hortencia blocking agents -Falls precautions -PT/OT Hypertension History of CVA/TIA COPD without exacerbation GERD without esophagitis -Home medications reviewed and reconciled Patient is a full code Patient is on therapeutic anticoagulation with Eliquis
[2020-09-22] MEDS ORDERED: DILTIAZEM DRIP BOLUS FROM BAG 1 MG SOLN IV ONE (17:41)
[2020-09-22] MEDS: ATORVASTATIN 10 MG TAB PO SCH (20:12)
[2020-09-22] MEDS: HYDROcodone/APAP 5-325MG 1 EACH TAB PO SCH (20:12)
--- NOTE | 2020-09-22 20:24 | PN ---
PROGRESS NOTE DATE OF SERVICE: 09/22/2020. HISTORY: Mrs. Hansen is doing well. She had atrial fib rapid rate. I started her on a small dose of Cardizem. Heart rate is about 110-120. I am recommending that we continue her current medications including IV Cardizem. She is going for a pacemaker on Thursday which will be performed by Dr. El. PHYSICAL EXAM: Vitals are stable. No JVD. S1, S2 with tachycardia audible. Short systolic murmur is audible. Lungs are clear. Abdomen and lower extremity exam unchanged. MMODL / IJN: [id number] /
[2020-09-23] MEDS: DILTIAZEM 125 MG in SODIUM CHLORIDE 0.9% 100 ML IV SCH ×2 (00:30→12:14)
[2020-09-23] MEDS: PANTOPRAZOLE 40 MG TABLET PO SCH (06:18)
[2020-09-23] MEDS ORDERED: NITROGLYCERIN SL TABS 0.4 MG TAB SUBLINGUAL ONE (06:23)
[2020-09-23] MEDS: IPRATROPIUM-ALBUTEROL 3 ML NEB INHALATION SCH ×4 (07:28→21:32)
[2020-09-23] MEDS: SYMBICORT 80-4.5 MCG INHALER INHALATION SCH ×2 (07:28→21:32)
[2020-09-23] MEDS: MULTIVITAMINS, THERA 1 EACH TAB PO SCH ×2 (08:22→16:17)
[2020-09-23] MEDS: CALCIUM CARBONATE 500 MG CHEWABLE PO SCH ×2 (08:22→16:17)
[2020-09-23] MEDS: predniSONE 5 MG TAB PO SCH (08:29)
[2020-09-23] MEDS: lisinopriL 5 MG TAB PO SCH ×2 (08:29→20:30)
[2020-09-23] MEDS: LORATADINE 10 MG TAB PO SCH (08:29)
[2020-09-23] MEDS: APIXABAN 2.5 MG TABLET PO SCH ×2 (08:29→20:29)
--- NOTE | 2020-09-23 10:02 | P.PN ---
Subjective Progress Note Date: 09/23/20 No new complaints. No further events on tele. Objective - Vital Signs Vital signs: Vital Signs Temp 97.9 F 09/23/20 07:48 Pulse 116 H 09/23/20 07:48 Resp 20 09/23/20 07:48 BP 110/63 09/23/20 07:48 Pulse Ox 98 09/23/20 07:48 Intake & Output 09/22/20 09/23/20 09/23/20 18:59 06:59 18:59 Intake Total 386.417 81.375 240 Output Total 100 Balance 286.417 81.375 240 Weight 48.5 kg Intake: Intake, IV Titration 48.417 81.375 Amount Diltiazem 125 mg In 48.417 81.375 Sodium Chloride 0.9% 100 ml @ 7.5 MG/HR 7.5 mls/hr IV .[id number] [facility] Rx#: [id number] Oral 338 240 Output: Urine 100 Other: Voiding Method Bedside Commode Bedside Commode # Voids 2 1 - Exam Gen: awake, alert HEENT: normocephalic, atraumatic, good hearing acuity, moist mucous membranes Resp: good air exchange, breathing comfortably with no accessory muscle use CVS: good distal perfusion x 4, GI: soft, NTTP, ND : no SPT, no CVAT, nichols catheter not present MSK: no pitting edema, no clubbing Neuro: non-focal, moving all extremities Psych: cooperative, euthymic mood - Labs CBC & Chem 7: 09/21/20 06:48 09/21/20 06:48 Assessment and Plan Assessment: Syncope Paroxysmal atrial fibrillation Sinus exit block -Admit to telemetry -Cardiology consult, PPM placement on Thursday -regular diet -Hold all AV hortencia blocking agents -Falls precautions -PT/OT Hypertension History of CVA/TIA COPD without exacerbation GERD without esophagitis -Home medications reviewed and reconciled Patient is a full code Patient is on therapeutic anticoagulation with Eliquis
[2020-09-23] MEDS ORDERED: SODIUM CHLORIDE 0.9% 500 ML 150 ML IV ONE (11:03)
[2020-09-23] MEDS ORDERED: SODIUM CHLORIDE 0.9% 1,000 ML IV SCH (12:00)
--- NOTE | 2020-09-23 15:09 | PN ---
PROGRESS NOTE This lady has paroxysmal atrial fibrillation with a tachy-sven syndrome. She is going to have a permanent pacemaker tomorrow. This morning, she was in atrial fibrillation, later on she converted and became a little hypotensive. I gave her some IV fluids. She is doing well otherwise. Advised to continue current medical regimen. Dr. Wolff will perform a permanent pacemaker tomorrow. EXAMINATION: Vitals are stable, JVD 1 cm, no carotid bruit. S1-S2 heard normally, short systolic murmur noted. Lungs reveal diminished air entry. Abdomen is soft. Lower extremities reveal diminished pulses. Central nervous system is normal. MMODL / IJN: [id number] /
[2020-09-23] MEDS: SODIUM CHLORIDE 0.9% 1,000 ML IV SCH (18:09)
[2020-09-23] MEDS: ATORVASTATIN 10 MG TAB PO SCH (20:30)
[2020-09-23] MEDS: HYDROcodone/APAP 5-325MG 1 EACH TAB PO SCH (20:30)
[2020-09-24] MEDS: PANTOPRAZOLE 40 MG TABLET PO SCH (06:57)
[2020-09-24] MEDS: SODIUM CHLORIDE 0.9% 1,000 ML IV SCH (06:57)
[2020-09-24] MEDS ORDERED: ceFAZolin 1 GM in SODIUM CHLORIDE 0.9% 250 ML IRRIGATION PRN (07:00)
[2020-09-24] MEDS: predniSONE 5 MG TAB PO SCH (08:11)
[2020-09-24] MEDS: CALCIUM CARBONATE 500 MG CHEWABLE PO SCH ×2 (08:11→17:03)
[2020-09-24] MEDS: LORATADINE 10 MG TAB PO SCH (08:11)
[2020-09-24] MEDS: MULTIVITAMINS, THERA 1 EACH TAB PO SCH ×2 (08:11→17:03)
[2020-09-24] MEDS: lisinopriL 5 MG TAB PO SCH ×2 (08:14→19:49)
[2020-09-24] MEDS: SYMBICORT 80-4.5 MCG INHALER INHALATION SCH ×2 (08:18→20:56)
[2020-09-24] MEDS: IPRATROPIUM-ALBUTEROL 3 ML NEB INHALATION SCH ×4 (08:18→20:56)
[2020-09-24] MEDS: APIXABAN 2.5 MG TABLET PO SCH ×2 (08:45→19:50)
[2020-09-24] MEDS ORDERED: METOPROLOL TARTRATE 50 MG TAB PO STA (08:47)
[2020-09-24 08:54] LABS: Glucose,Whole Blood 85 mg/dL (75-99)
[2020-09-24] MEDS ORDERED: fentaNYL (PF) 50 MCG/ML 2 ML AMP ONE (11:40)
[2020-09-24] MEDS ORDERED: diphenhydrAMINE 50 MG/ML 1 ML VIAL ONE (11:40)
[2020-09-24] MEDS ORDERED: PROPOFOL 10 MG/ML 20 ML VIAL IV ONE (11:40)
[2020-09-24] MEDS ORDERED: MIDAZOLAM 2 MG/2 ML VIAL ONE (11:40)
[2020-09-24] MEDS ORDERED: IV FLUID CONTINUATION 1,000 ML IV ONE (11:45)
[2020-09-24] MEDS ORDERED: IOPAMIDOL-370 50ML BTL INJ ONE (12:14)
[2020-09-24] MEDS ORDERED: LIDOCAINE 1% INJ 10MG/ML (20 ML MDV) SQ ONE ×3 (12:35→12:45)
--- NOTE | 2020-09-24 12:39 | P.PN ---
Subjective This is a pleasant 85-year-old female who has paroxysmal atrial fibrillation with tachybradycardia syndrome. Through the night she converted back to atrial fibrillation with variable ventricular rates. Currently her heart rate is approximately 150. Blood pressure 118/91. Currently maintained on lisinopril 5 mg twice a day, atorvastatin 10 mg daily and Eliquis 2.5 mg twice a day. GENERAL: Well-appearing, well-nourished and in no acute distress. NECK: Supple without JVD or thyromegaly. LUNGS: Breath sounds clear to auscultation bilaterally. Respiration equal and unlabored. No wheezes, rales or rhonchi. HEART: Irregular rate and rhythm without murmurs, rubs or gallops. S1 and S2 heard. EXTREMITIES: Normal range of motion, no edema. No clubbing or cyanosis. Peripheral pulses intact. ASSESSMENT Paroxysmal atrial fibrillation with rapid ventricular rate Tachy-sven syndrome Hypertension Dyslipidemia PLAN Give one dose of lopressor 50 mg now. Plan is for permanent pacemaker implantation this afternoon. Patient and family has been updated. Nurse Practitioner note has been reviewed, I agree with a documented findings and plan of care. Patient was seen and examined. Objective - Vital Signs Vital signs: Vital Signs Temp 97.4 F L 09/24/20 08:00 Pulse 150 H 09/24/20 08:00 Resp 18 09/24/20 04:00 BP 118/91 09/24/20 08:00 Pulse Ox 96 09/24/20 08:00 Intake & Output 09/23/20 09/24/20 09/24/20 18:59 06:59 18:59 Intake Total 390.083 10 Balance 390.083 10 Weight 48.5 kg Intake: IV 10 Invasive Line 4 10 Intake, IV Titration 30.083 Amount Diltiazem 125 mg In 30.083 Sodium Chloride 0.9% 100 ml @ 7.5 MG/HR 7.5 mls/hr IV .[id number] [facility] Rx#: [id number] Oral 360 Other: Voiding Method Bedside Commode Toilet # Voids 2 1 1 - Labs CBC & Chem 7: 09/21/20 06:48 09/21/20 06:48
--- NOTE | 2020-09-24 12:50 | P.PN ---
Subjective Progress Note Date: 09/24/20 No new complaints today. Paroxysmal A Fib on tele with rapid rates. Plan for PPM in the afternoon today. Objective - Vital Signs Vital signs: Vital Signs Temp 97.4 F L 09/24/20 08:00 Pulse 150 H 09/24/20 08:00 Resp 18 09/24/20 04:00 BP 118/91 09/24/20 08:00 Pulse Ox 96 09/24/20 08:00 Intake & Output 09/23/20 09/24/20 09/24/20 18:59 06:59 18:59 Intake Total 390.083 10 50 Balance 390.083 10 50 Weight 48.5 kg Intake: IV 10 50 Invasive Line 4 10 Intake, IV Titration 30.083 Amount Diltiazem 125 mg In 30.083 Sodium Chloride 0.9% 100 ml @ 7.5 MG/HR 7.5 mls/hr IV .[id number] [facility] Rx#: [id number] Oral 360 Other: Voiding Method Bedside Commode Toilet # Voids 2 1 1 - Exam Gen: awake, alert HEENT: normocephalic, atraumatic, good hearing acuity, moist mucous membranes Resp: good air exchange, breathing comfortably with no accessory muscle use CVS: good distal perfusion x 4, GI: soft, NTTP, ND : no SPT, no CVAT, nichols catheter not present MSK: no pitting edema, no clubbing Neuro: non-focal, moving all extremities Psych: cooperative, euthymic mood - Labs CBC & Chem 7: 09/21/20 06:48 09/21/20 06:48 Assessment and Plan Assessment: Syncope Paroxysmal atrial fibrillation Tachy-Americo Syndrome -Admit to telemetry -Cardiology consult, PPM placement today -regular diet -Hold all AV hortencia blocking agents -Falls precautions -PT/OT Hypertension History of CVA/TIA COPD without exacerbation GERD without esophagitis -Home medications reviewed and reconciled Patient is a full code Patient is on therapeutic anticoagulation with Eliquis
[2020-09-24] MEDS ORDERED: ACETAMINOPHEN TAB 325 MG TAB PO PRN (13:25)
--- NOTE | 2020-09-24 14:20 | XR ---
EXAMINATION TYPE: XR chest 1V portable DATE OF EXAM: 09/24/2020 COMPARISON: 09/20/2020 HISTORY: Lead placement check TECHNIQUE: Single frontal view of the chest is obtained. FINDINGS: Left infraclavicular generator device with a right atrial and left ventricular lead is new since prior exam. Heart size is within normal limits. Atherosclerotic aorta. Multiple overlying lead s. Blunting of the right costophrenic angle or may represent a tiny pleural effusion. No left pleural effusion. Pleural/parenchymal thickening and/or scarring at the lung apices. Emphysematous changes a re seen. No pneumothorax or focal consolidation. IMPRESSION: 1. Left infraclavicular generator device with a right atrial and left ventricular lead. 2. Blunting of the right costophrenic angle suggestive of tiny pleural effusion or scarring. 3. Severe emphysematous changes.
--- NOTE | 2020-09-24 16:49 | CE ---
CARDIAC ELECTROPHYSIOLOGY REPORT PROCEDURE: Dual-chamber pacemaker implantation. INDICATION: Tachy-sven syndrome with long sinus pauses, post-conversion pauses. The patient has failed flecainide. She continues to have these long pauses despite stopping metoprolol. DESCRIPTION OF PROCEDURE: The patient is brought to the EP lab in a fasting state. Written informed consent was obtained prior to the procedure. The left shoulder area was prepped and draped as per protocol. 1% lidocaine was used for local anesthesia. A 4 cm incision was made parallel to the deltopectoral groove, about 1.5 cm medial to it. The incision was carried down to the level of the pectoralis muscle. A subfascial pocket was made. Hemostasis was assured. The left axillary vein was accessed at 2 separate points under fluoroscopy and via appropriately-sized introducer sheaths, two leads were positioned in the right heart. The atrial lead was a passive lead placed in the right atrial appendage. The P waves were around 2-3 mV. Pacing impedance 860 ohms. Pacing threshold 0.6 V at 0.5 milliseconds. 10 V test negative. This was a [employer], 52 cm, model #1944, serial number [id number]. The RV lead was a passive lead implanted in the RV apex. She had a boot-shaped heart and the lead rode up into the septum. This was septal pacing from the RV. [employer] leader model #1948, 58 cm length and serial number [id number]. Pacing threshold 0.6 V at 0.5 milliseconds, pacing impedance 860 ohms. R-waves 21 mV. 10 V test negative. Both leads were secured to the underlying pectoralis fascia using 2 nonabsorbable sutures. Pocket was irrigated with antibiotic solution. Leads were connected to the generator ([employer] model number [id number] serial #[id number]. The leads and generator were then placed in subfascial pocket and the wound was closed in 3 layers and dressed per protocol. IMPRESSION: Successful dual-chamber pacemaker implantation, [employer] for tachy-sven syndrome with long post-conversion pauses of greater than 5 seconds. These episodes have occurred even after stopping metoprolol. PLAN: Resume AV hortencia blocking drugs and start amiodarone instead of flecainide. Continue anticoagulation. MMODL / IJN: [id number] /
[2020-09-24] MEDS: VERAPAMIL SR 180 MG TABLET.ER PO SCH (17:13)
[2020-09-24] MEDS: ATORVASTATIN 10 MG TAB PO SCH (19:49)
[2020-09-24] MEDS: HYDROcodone/APAP 5-325MG 1 EACH TAB PO SCH (19:49)
[2020-09-24] MEDS: AMIODARONE 200 MG TAB PO SCH (19:50)
[2020-09-25] MEDS: PANTOPRAZOLE 40 MG TABLET PO SCH (05:43)
[2020-09-25] MEDS: APIXABAN 2.5 MG TABLET PO SCH (08:36)
[2020-09-25] MEDS: lisinopriL 5 MG TAB PO SCH (08:36)
[2020-09-25] MEDS: CALCIUM CARBONATE 500 MG CHEWABLE PO SCH ×2 (08:36→16:08)
[2020-09-25] MEDS: LORATADINE 10 MG TAB PO SCH (08:36)
[2020-09-25] MEDS: AMIODARONE 200 MG TAB PO SCH (08:36)
[2020-09-25] MEDS: MULTIVITAMINS, THERA 1 EACH TAB PO SCH ×2 (08:36→16:08)
[2020-09-25] MEDS: predniSONE 5 MG TAB PO SCH (08:37)
[2020-09-25] MEDS: VERAPAMIL SR 180 MG TABLET.ER PO SCH (08:37)
[2020-09-25] MEDS: SYMBICORT 80-4.5 MCG INHALER INHALATION SCH (08:38)
[2020-09-25] MEDS: IPRATROPIUM-ALBUTEROL 3 ML NEB INHALATION SCH ×3 (08:38→16:26)
--- NOTE | 2020-09-25 11:00 | P.DS ---
Providers Date of admission: 09/20/20 14:26 Expected date of discharge: 09/25/20 Attending physician: Jak Walsh MD Consults: 09/20/20 14:25 Consult Physician Routine Consulting Provider: Shane Truong Consult Reason/Comments: 6-7 second sinus pauses; paroxysmal a fib; syncope Do you want consulting provider notified?: Yes Primary care physician: Norris Hermosillo MD Hospital Course: 85 year old woman with history of multiple falls, COPD, paroxysmal atrial fibrillation, HTN presented with recurrent episode of syncope. Pt has been having multiple episodes of syncope, often resulting in falls with fractures over the course of the previous 6 months, but these episodes have acutely worsened over the last several weeks. She was recently seen and discharged here for similar presentation, and had work up for seizures which were ruled out. She was also monitored on telemetry, but had no arrhythmic events during prior hospitalization with echo demonstrating preserved structure and function of the heart. On day of discharge, she was sent home with 30 day event monitor. She was notified shortly thereafter that she was having episodes of atrial fibrillation with RVR followed by spontaneous conversion to sinus rhythm after 5-6s pause. Patient and family note that patients symptoms have been increasing in frequency during this time. Based on her cardiac workup, Dr. Ibrahim recommended pacemaker placement, which was scheduled for 09/26, however, due to ongoing episodes of syncope (including the 3 episodes from this morning alone) she presented to the ER for further evaluation. In the ER, she is HDS with EKG demonstrating first degree AVB at a rate of mid- 80s without ischemic ST-T wave changes. Syncope Paroxysmal atrial fibrillation Tachy-Americo Syndrome Patient admitted to the hospital on telemetry. Evaluated by cardiology. Telemetry demonstrated episodes of paroxysmal A Fib. Decision was made to place PPM on 09/24. Patient ambulating well without any further syncopal events. Cardiology cleared patient today after pacemaker check. Flecainide d/c'd in lieu of amiodarone. Metoprolol resumed. Eliquis resumed. Patient d/c'd with EP follow up. Hypertension History of CVA/TIA COPD without exacerbation GERD without esophagitis -Home medications reviewed and reconciled -amiodarone, metoprolol are new -lisinopril was changed from 5mg BID to daily dosing -flecainide d/c'd -all other medications resumed with no changes. I spent 32 minutes coordinating this complex discharge. Assessment: Gen: awake, alert HEENT: normocephalic, atraumatic, good hearing acuity, moist mucous membranes Resp: good air exchange, breathing comfortably with no accessory muscle use CVS: good distal perfusion x 4, GI: soft, NTTP, ND : no SPT, no CVAT, nichols catheter not present MSK: no pitting edema, no clubbing Neuro: non-focal, moving all extremities Psych: cooperative, euthymic mood Patient Condition at Discharge: Good Plan - Discharge Summary New Discharge Prescriptions: New Amiodarone [Cordarone] 200 mg PO BID #180 tab Metoprolol Tartrate [Lopressor] 50 mg PO BID #180 tab lisinopriL [Zestril] 5 mg PO DAILY tab Acetaminophen Tab [Tylenol] 650 mg PO Q6HR PRN tab PRN Reason: Mild Pain Continue Simvastatin [Zocor] 10 mg PO HS Fluticasone/Umeclidin/Vilanter [Trelegy Ellipta 100-62.5-25] 1 puff INHALATION RT-DAILY HYDROcodone/APAP 5-325MG [Kinta 5-325] 1 tab PO HS Multivitamins, Thera [Multivitamin (formulary)] 1 tab PO BID@0800,1700 predniSONE 5 mg PO DAILY Omeprazole 20 mg PO DAILY Calcium Carbonate [Calcium] 600 mg PO BID@0800,1700 Albuterol Inhaler [Ventolin Hfa Inhaler] 1 puff INHALATION RT-Q4H PRN PRN Reason: Shortness Of Breath Ipratropium-Albuterol Nebulize [Duoneb 0.5 mg-3 mg/3 ml Soln] 3 ml INHALATION RT-QID Apixaban [Eliquis] 2.5 mg PO BID Fexofenadine HCl [Toyin Allergy] 180 mg PO DAILY Discontinued lisinopriL [Zestril] 5 mg PO BID Discharge Medication List Albuterol Inhaler [Ventolin Hfa Inhaler] 1 puff INHALATION RT-Q4H PRN 09/08/20 [History] Apixaban [Eliquis] 2.5 mg PO BID 09/08/20 [History] Calcium Carbonate [Calcium] 600 mg PO BID@0800,1700 09/08/20 [History] Fluticasone/Umeclidin/Vilanter [Trelegy Ellipta 100-62.5-25] 1 puff INHALATION RT-DAILY 09/08/20 [History] HYDROcodone/APAP 5-325MG [Kinta 5-325] 1 tab PO HS 09/08/20 [History] Ipratropium-Albuterol Nebulize [Duoneb 0.5 mg-3 mg/3 ml Soln] 3 ml INHALATION RT-QID 09/08/20 [History] Multivitamins, Thera [Multivitamin (formulary)] 1 tab PO BID@0800,1700 09/08/20 [History] Omeprazole 20 mg PO DAILY 09/08/20 [History] Simvastatin [Zocor] 10 mg PO HS 09/08/20 [History] predniSONE 5 mg PO DAILY 09/08/20 [History] Fexofenadine HCl [Toyin Allergy] 180 mg PO DAILY 09/19/20 [History] Acetaminophen Tab [Tylenol] 650 mg PO Q6HR PRN tab 09/25/20 [Rx] Amiodarone [Cordarone] 200 mg PO BID #180 tab 09/25/20 [Rx] Metoprolol Tartrate [Lopressor] 50 mg PO BID #180 tab 09/25/20 [Rx] lisinopriL [Zestril] 5 mg PO DAILY tab 09/25/20 [Rx] Follow up Appointment(s)/Referral(s): [facility] [NON-STAFF] - De El MD [STAFF PHYSICIAN] - 1 Week (Device clinic in one week Follow-up with Dr. El in one month) Norris Hermosillo MD [Primary Care Provider] - 1-2 days Patient Instructions/Handouts: Pacemaker (DC) Activity/Diet/Wound Care/Special Instructions: PATIENT EDUCATION MATERIAL Instructions following a heart rhythm device implant. 1. Keep dressing DRY for 5 DAYS. You may cover the area with Saran or Cling Wrap, prior to a shower. 2. The dressing will be removed in the Device Clinic at [facility]. Absorbable sutures were used to close the wound. 3. Avoid raising the left arm above the shoulder level. 4 week restriction 4. Avoid arm movements, like backscratching, rubbing the head, or pulling on a cord. 4 weeks restriction 5. Gentle range of motion movements of the shoulder, closest to the incision should be performed to avoid a frozen shoulder. (Pendulum exercises of the shoulder) 6. The opposite arm may be used freely. 7. Avoid driving for 7 days. 8. Avoid activities such as golfing, swimming, weed whacking, lifting more than 10 pounds weight, bowling, gymnastics and weight training/lifting. (6 weeks restriction) 9. Activities such as wood chopping with an axe, pull-ups in the gymnasium, power lifting, arc-welding, being close to home induction cooktops will always be a problem. 10. Arm sling is only a reminder not to raise the arm above the head. You do not need to keep the arm completely immobilized. Your free to move the arm and use it and for normal activities. In case of any problems, please call [facility] [place], @ [phone], Attention: Device Clinic Device clinic follow-up in 5 days Follow-up with primary paper machine supervisor in 2-3 months Discharge Disposition: HOME SELF-CARE
--- NOTE | 2020-09-25 13:31 | P.PN ---
Subjective This is a pleasant 85-year-old female who has paroxysmal atrial fibrillation with tachybradycardia syndrome. Through the night she converted back to atrial fibrillation with variable ventricular rates. Currently her heart rate is approximately 150. Blood pressure 118/91. Currently maintained on lisinopril 5 mg twice a day, atorvastatin 10 mg daily and Eliquis 2.5 mg twice a day. 09/25/2020 Patient seen and examined sitting up in bed in no acute distress. Pacemaker interrogation completed. Device is functioning normally. Chest x-ray reveals left infraclavicular generator device with a right atrial and left ventricular lead, severe and the somatic changes and blunting of the right costophrenic angle. Blood pressure 107/44 heart rate 71 afebrile maintaining oxygen saturation on nasal cannula. GENERAL: Well-appearing, well-nourished and in no acute distress. NECK: Supple without JVD or thyromegaly. LUNGS: Breath sounds clear to auscultation bilaterally. Respiration equal and unlabored. No wheezes, rales or rhonchi. HEART: Irregular rate and rhythm without murmurs, rubs or gallops. S1 and S2 heard. EXTREMITIES: Normal range of motion, no edema. No clubbing or cyanosis. Peripheral pulses intact. ASSESSMENT Paroxysmal atrial fibrillation with rapid ventricular rate Tachy-sven syndrome Hypertension Dyslipidemia PLAN Decrease lisinopril to daily dosing. Initiate metoprolol 50 mg twice a day. Continue amiodarone 200 mg twice a day, tapering instructions given to the patient. Stable for discharge from a cardiac perspective. Nurse Practitioner note has been reviewed, I agree with a documented findings and plan of care. Patient was seen and examined. Objective - Vital Signs Vital signs: Vital Signs Temp 97.4 F L 09/25/20 08:00 Pulse 71 09/25/20 11:23 Resp 22 09/25/20 11:23 BP 107/44 09/25/20 11:23 Pulse Ox 98 09/25/20 11:23 Intake & Output 09/24/20 09/25/20 09/25/20 18:59 06:59 18:59 Intake Total 540 100 360 Balance 540 100 360 Weight 48.3 kg Intake: IV 300 Intake, IV Titration 100 Amount ceFAZolin 2 gm In Sodium 100 Chloride 0.9% 50 ml @ 100 mls/hr IVPB Q6HR [facility] Rx# :[id number] Oral 240 360 Other: Voiding Method Toilet # Voids 1 1 1 # Bowel Movements 1 - Labs CBC & Chem 7: 09/21/20 06:48 09/21/20 06:48
[2020-09-25 15:29] VITALS: BP 134/66; PULSE 74; RESP 20; TEMP 98
[2020-09-26] MEDS ORDERED: METOPROLOL TARTRATE 50 MG TAB PO SCH (09:00)
[2020-09-26] MEDS ORDERED: lisinopriL 5 MG TAB PO SCH (09:00)
== END 2020-09-25 18:36 | disposition home or self-care (01) | DRG 244 ==
LOC: EC 12:01 → 3SCARD 14:26
PROVIDERS: ADMIT Internal Medicine; ATTEND Internal Medicine
PROC: 02H63JZ Insertion of Pacemaker Lead into Right Atrium, Percutaneous Approach (ICD-10-PCS; principal; 2020-09-25)
PROC: 0JH606Z Insertion of Pacemaker, Dual Chamber into Chest Subcutaneous Tissue and Fascia, Open Approach (ICD-10-PCS; principal; 2020-09-25)
PROC: 02HK3JZ Insertion of Pacemaker Lead into Right Ventricle, Percutaneous Approach (ICD-10-PCS; principal; 2020-09-25)
DX: I49.5 Sick sinus syndrome (principal); D64.9 Anemia, unspecified; E78.5 Hyperlipidemia, unspecified; I10 Essential (primary) hypertension; I44.0 Atrioventricular block, first degree; I48.0 Paroxysmal atrial fibrillation; J44.9 Chronic obstructive pulmonary disease, unspecified; K21.9 Gastro-esophageal reflux disease without esophagitis; M81.0 Age-related osteoporosis without current pathological fracture; Z20.822 Contact with and (suspected) exposure to COVID-19; Z79.01 Long term (current) use of anticoagulants; Z79.899 Other long term (current) drug therapy; Z86.73 Personal history of transient ischemic attack (TIA), and cerebral infarction without residual deficits; Z86.74 Personal history of sudden cardiac arrest; Z87.891 Personal history of nicotine dependence; Z91.81 History of falling; R29.6 Repeated falls; Z87.81 Personal history of (healed) traumatic fracture; Z99.81 Dependence on supplemental oxygen
CPT/HCPCS: 33208; 36415; 71045; 80048; 80053; 81001; 83735; 84443; 84484; 85025; 85610; 85730; 87635; 93005; 94640; 94760; 96360; 99285

== ENCOUNTER 2021-02-06 16:49 | Emergency (ER) | payer MEDICARE, BC ==
[2021-02-06 17:37] VITALS: TEMP 98.1
[2021-02-06 18:24] LABS: Basophils # (A) 0.1 k/uL (0-0.2); Basophils % (A) 1 %; Eosinophils % (A) 0 %; HCT 37.8 % (34.0-46.0); HGB 11.4 gm/dL (11.4-16.0); Hypochromasia Marked; Lymphocytes # (A) 0.8 k/uL (1.0-4.8); Lymphocytes % (A) 8 %; MCH 25.6 pg (25.0-35.0); MCHC 30.1 g/dL (31.0-37.0); MCV 85.1 fL (80.0-100.0); Mean Platelet Volume 7.3; Monocytes # (A) 0.3 k/uL (0-1.0); Monocytes % (A) 3 %; Neutrophils # (A) 8.2 k/uL (1.3-7.7); Neutrophils % (A) 86 %; Platelet Count 301 k/uL (150-450); RBC 4.44 m/uL (3.80-5.40); RDW 14.5 % (11.5-15.5); WBC 9.5 k/uL (3.8-10.6)
[2021-02-06 18:34] LABS: Calcium 9.5 mg/dL (8.4-10.2); Potassium 4.9 mmol/L (3.5-5.1); Total Bilirubin 0.5 mg/dL (0.2-1.3); Total Protein 7.3 g/dL (6.3-8.2)
[2021-02-06 18:54] LABS: INR 0.9 (<1.2); Partial Thromboplastin Time 21.2 sec (22.0-30.0); Prothrombin Time 9.7 sec (9.0-12.0)
[2021-02-06] MEDS ORDERED: methylPREDNISolone SOD SUCCI 125 MG/2 ML VIAL IV STA (19:51)
[2021-02-06] MEDS ORDERED: IPRATROPIUM-ALBUTEROL 3 ML NEB INHALATION STA (19:51)
--- NOTE | 2021-02-06 19:57 | ED ---
General Adult HPI - General Chief complaint: Shortness of Breath Stated complaint: COPD, weakness Time Seen by Provider: 02/06/21 19:25 Source: patient, RN notes reviewed Mode of arrival: wheelchair Limitations: no limitations - History of Present Illness Initial comments: 85-year-old female with a past medical history of atrial fibrillation, COPD CVA GERD hypertension presents to the emergency room for shortness of breath. Patient states she has COPD and is on 3-4 L at home. Patient states that over the past 2 weeks she has been more short of breath. Denies chest pain. States that when getting up and walking her shortness of breath is worse. Patient has been doing her nebulizer 4 times a day. She is on a low-dose steroid chronically. Patient is also having frequent urination. Her doctor wanted her to be tested for a UTI.Patient has no other complaints at this time including shortness of breath, chest pain, abdominal pain, nausea or vomiting, headache, or visual changes. - Related Data Home Medications Medication Instructions Recorded Confirmed Albuterol Inhaler [Ventolin Hfa 1 puff INHALATION RT-Q4H PRN 09/08/20 09/20/20 Inhaler] Apixaban [Eliquis] 2.5 mg PO BID 09/08/20 09/20/20 Calcium Carbonate [Calcium] 600 mg PO BID@0800,1700 09/08/20 09/20/20 Fluticasone/Umeclidin/Vilanter 1 puff INHALATION RT-DAILY 09/08/20 09/20/20 [Trelegy Ellipta 100-62.5-25] HYDROcodone/APAP 5-325MG [Satartia 1 tab PO HS 09/08/20 09/20/20 5-325] Ipratropium-Albuterol Nebulize 3 ml INHALATION RT-QID 09/08/20 09/20/20 [Duoneb 0.5 mg-3 mg/3 ml Soln] Multivitamins, Thera [Multivitamin 1 tab PO BID@0800,1700 09/08/20 09/20/20 (formulary)] Omeprazole 20 mg PO DAILY 09/08/20 09/20/20 Simvastatin [Zocor] 10 mg PO HS 09/08/20 09/20/20 predniSONE 5 mg PO DAILY 09/08/20 09/20/20 Fexofenadine HCl [Toyin Allergy] 180 mg PO DAILY 09/19/20 09/20/20 Previous Rx's Medication Instructions Recorded Acetaminophen Tab [Tylenol] 650 mg PO Q6HR PRN tab 09/25/20 Amiodarone [Cordarone] 200 mg PO BID #180 tab 09/25/20 Metoprolol Tartrate [Lopressor] 50 mg PO BID #180 tab 09/25/20 lisinopriL [Zestril] 5 mg PO DAILY tab 09/25/20 Levofloxacin [Levaquin] 750 mg PO DAILY 4 Days #4 tab 02/06/21 Allergies Allergy/AdvReac Type Severity Reaction Status Date / Time No Known Allergies Allergy Verified 02/06/21 17:32 Review of Systems ROS Statement: Those systems with pertinent positive or pertinent negative responses have been documented in the HPI. ROS Other: All systems not noted in ROS Statement are negative. Past Medical History Past Medical History: Atrial Fibrillation, COPD, CVA/TIA, GERD/Reflux, Hypertension, Memory Impairment, Musculoskeletal Disorder, Osteoarthritis (OA) Additional Past Medical History / Comment(s): left wrist, shoulder & forearm fracture in Mar. after a fall, uses oxygen cont. @2l, recent hospitalization for episodes of passing out, osteoporosis, very tender ankles & lower legs, very thin skin, see Dr El H & P History of Any Multi-Drug Resistant Organisms: None Reported Past Surgical History: Pacemaker Additional Past Surgical History / Comment(s): hemorroidectomy Past Anesthesia/Blood Transfusion Reactions: No Reported Reaction Past Psychological History: No Psychological Hx Reported Smoking Status: Former smoker Past Alcohol Use History: None Reported Past Drug Use History: None Reported - Past Family History Mother Family Medical History: CVA/TIA Father Family Medical History: Chest Pain / Angina, Congestive Heart Failure (CHF), Coronary Artery Disease (CAD) General Exam Limitations: no limitations General appearance: alert, in no apparent distress Head exam: Present: atraumatic Eye exam: Present: normal appearance, PERRL, EOMI. Absent: scleral icterus, conjunctival injection ENT exam: Present: normal exam, mucous membranes moist Neck exam: Present: normal inspection, full ROM. Absent: tenderness Respiratory exam: Present: normal lung sounds bilaterally. Absent: respiratory distress, wheezes Cardiovascular Exam: Present: regular rate, normal rhythm, normal heart sounds GI/Abdominal exam: Present: soft, normal bowel sounds. Absent: distended, tenderness Neurological exam: Present: alert Course Vital Signs 02/06/21 02/06/21 02/06/21 17:32 19:45 20:15 Temperature 98.1 F Pulse Rate 60 65 Respiratory 20 26 H 20 Rate Blood Pressure 140/68 216/102 174/77 O2 Sat by Pulse 91 L 98 Oximetry 02/06/21 02/06/21 02/06/21 20:28 20:40 21:48 Temperature Pulse Rate 60 62 62 Respiratory 28 H 18 Rate Blood Pressure 153/76 O2 Sat by Pulse 99 Oximetry EKG Findings - EKG Comments: EKG Findings:: Atrial paced rhythm, ventricular rate 60, CA interval 184, QTc 412 Medical Decision Making - Medical Decision Making Vitals are stable. Patient is on her home oxygen. Patient on 2 L when I checked her and is satting 99%. CBC CMP unremarkable. Urinalysis negative. Coronavirus negative. CTA did reveal left lower lobe infiltrate consistent with pneumonia. This could be a cause of patient's pneumonia. I did offer admission to the hospital however patient states that all possible she would prefer to try outpatient antibiotics first and follow-up with her primary neurologist. We will give her a dose here. She will return for any worsening symptoms. - Lab Data Result diagrams: 02/06/21 18:08 02/06/21 18:08 Lab Results 02/06/21 02/06/21 02/06/21 Range/Units 18:08 18:08 18:08 WBC 9.5 (3.8-10.6) k/uL RBC 4.44 (3.80-5.40) m/uL Hgb 11.4 (11.4-16.0) gm/dL Hct 37.8 (34.0-46.0) % MCV 85.1 (80.0-100.0) fL MCH 25.6 (25.0-35.0) pg MCHC 30.1 L (31.0-37.0) g/dL RDW 14.5 (11.5-15.5) % Plt Count 301 (150-450) k/uL MPV 7.3 Neutrophils % 86 % Lymphocytes % 8 % Monocytes % 3 % Eosinophils % 0 % Basophils % 1 % Neutrophils # 8.2 H (1.3-7.7) k/uL Lymphocytes # 0.8 L (1.0-4.8) k/uL Monocytes # 0.3 (0-1.0) k/uL Eosinophils # 0.0 (0-0.7) k/uL Basophils # 0.1 (0-0.2) k/uL Hypochromasia Marked PT 9.7 (9.0-12.0) sec INR 0.9 (<1.2) APTT 21.2 L (22.0-30.0) sec Sodium 138 (137-145) mmol/L Potassium 4.9 (3.5-5.1) mmol/L Chloride 97 L (98-107) mmol/L Carbon Dioxide 34 H (22-30) mmol/L Anion Gap 7 mmol/L BUN 19 H (7-17) mg/dL Creatinine 0.72 (0.52-1.04) mg/dL Est GFR (CKD-EPI)AfAm 89 (>60 ml/min/1.73 sqM) Est GFR (CKD-EPI)NonAf 77 (>60 ml/min/1.73 sqM) Glucose 108 H (74-99) mg/dL Calcium 9.5 (8.4-10.2) mg/dL Total Bilirubin 0.5 (0.2-1.3) mg/dL AST 41 H (14-36) U/L ALT 43 H (4-34) U/L Alkaline Phosphatase 78 (38-126) U/L Troponin I (0.000-0.034) ng/mL NT-Pro-B Natriuret Pep pg/mL Total Protein 7.3 (6.3-8.2) g/dL Albumin 4.0 (3.5-5.0) g/dL Urine Color Urine Appearance (Clear) Urine pH (5.0-8.0) Ur Specific [place] (1.001-1.035) Urine Protein (Negative) Urine Glucose (UA) (Negative) Urine Ketones (Negative) Urine Blood (Negative) Urine Nitrite (Negative) Urine Bilirubin (Negative) Urine Urobilinogen (<2.0) mg/dL Ur Leukocyte Esterase (Negative) Urine RBC (0-5) /hpf Urine WBC (0-5) /hpf Urine Mucus (None) /hpf Urine Yeast (Budding) (None) /hpf Coronavirus (PCR) (Not Detectd) 02/06/21 02/06/21 02/06/21 Range/Units 18:08 18:08 19:47 WBC (3.8-10.6) k/uL RBC (3.80-5.40) m/uL Hgb (11.4-16.0) gm/dL Hct (34.0-46.0) % MCV (80.0-100.0) fL MCH (25.0-35.0) pg MCHC (31.0-37.0) g/dL RDW (11.5-15.5) % Plt Count (150-450) k/uL MPV Neutrophils % % Lymphocytes % % Monocytes % % Eosinophils % % Basophils % % Neutrophils # (1.3-7.7) k/uL Lymphocytes # (1.0-4.8) k/uL Monocytes # (0-1.0) k/uL Eosinophils # (0-0.7) k/uL Basophils # (0-0.2) k/uL Hypochromasia PT (9.0-12.0) sec INR (<1.2) APTT (22.0-30.0) sec Sodium (137-145) mmol/L Potassium (3.5-5.1) mmol/L Chloride (98-107) mmol/L Carbon Dioxide (22-30) mmol/L Anion Gap mmol/L BUN (7-17) mg/dL Creatinine (0.52-1.04) mg/dL Est GFR (CKD-EPI)AfAm (>60 ml/min/1.73 sqM) Est GFR (CKD-EPI)NonAf (>60 ml/min/1.73 sqM) Glucose (74-99) mg/dL Calcium (8.4-10.2) mg/dL Total Bilirubin (0.2-1.3) mg/dL AST (14-36) U/L ALT (4-34) U/L Alkaline Phosphatase (38-126) U/L Troponin I <0.012 (0.000-0.034) ng/mL NT-Pro-B Natriuret Pep 1040 pg/mL Total Protein (6.3-8.2) g/dL Albumin (3.5-5.0) g/dL Urine Color Yellow Urine Appearance Cloudy H (Clear) Urine pH 8.0 (5.0-8.0) Ur Specific [place] 1.017 (1.001-1.035) Urine Protein Negative (Negative) Urine Glucose (UA) Negative (Negative) Urine Ketones Trace H (Negative) Urine Blood Negative (Negative) Urine Nitrite Negative (Negative) Urine Bilirubin Negative (Negative) Urine Urobilinogen <2.0 (<2.0) mg/dL Ur Leukocyte Esterase Negative (Negative) Urine RBC 1 (0-5) /hpf Urine WBC 2 (0-5) /hpf Urine Mucus Rare H (None) /hpf Urine Yeast (Budding) Few H (None) /hpf Coronavirus (PCR) (Not Detectd) 02/06/21 Range/Units 20:20 WBC (3.8-10.6) k/uL RBC (3.80-5.40) m/uL Hgb (11.4-16.0) gm/dL Hct (34.0-46.0) % MCV (80.0-100.0) fL MCH (25.0-35.0) pg MCHC (31.0-37.0) g/dL RDW (11.5-15.5) % Plt Count (150-450) k/uL MPV Neutrophils % % Lymphocytes % % Monocytes % % Eosinophils % % Basophils % % Neutrophils # (1.3-7.7) k/uL Lymphocytes # (1.0-4.8) k/uL Monocytes # (0-1.0) k/uL Eosinophils # (0-0.7) k/uL Basophils # (0-0.2) k/uL Hypochromasia PT (9.0-12.0) sec INR (<1.2) APTT (22.0-30.0) sec Sodium (137-145) mmol/L Potassium (3.5-5.1) mmol/L Chloride (98-107) mmol/L Carbon Dioxide (22-30) mmol/L Anion Gap mmol/L BUN (7-17) mg/dL Creatinine (0.52-1.04) mg/dL Est GFR (CKD-EPI)AfAm (>60 ml/min/1.73 sqM) Est GFR (CKD-EPI)NonAf (>60 ml/min/1.73 sqM) Glucose (74-99) mg/dL Calcium (8.4-10.2) mg/dL Total Bilirubin (0.2-1.3) mg/dL AST (14-36) U/L ALT (4-34) U/L Alkaline Phosphatase (38-126) U/L Troponin I (0.000-0.034) ng/mL NT-Pro-B Natriuret Pep pg/mL Total Protein (6.3-8.2) g/dL Albumin (3.5-5.0) g/dL Urine Color Urine Appearance (Clear) Urine pH (5.0-8.0) Ur Specific [place] (1.001-1.035) Urine Protein (Negative) Urine Glucose (UA) (Negative) Urine Ketones (Negative) Urine Blood (Negative) Urine Nitrite (Negative) Urine Bilirubin (Negative) Urine Urobilinogen (<2.0) mg/dL Ur Leukocyte Esterase (Negative) Urine RBC (0-5) /hpf Urine WBC (0-5) /hpf Urine Mucus (None) /hpf Urine Yeast (Budding) (None) /hpf Coronavirus (PCR) Not Detected (Not Detectd) Disposition Clinical Impression: Pneumonia, Shortness of breath Disposition: HOME SELF-CARE Condition: Good Instructions (If sedation given, give patient instructions): Pneumonia (ED) Additional Instructions: Please take antibiotic as directed. Please follow-up with your doctor. Return to the emergency room for any worsening symptoms. Prescriptions: Levofloxacin [Levaquin] 750 mg PO DAILY 4 Days #4 tab Is patient prescribed a controlled substance at d/c from ED?: No Referrals: Norris Hermosillo MD [Primary Care Provider] - 1-2 days Time of Disposition: 22:03
[2021-02-06 19:59] LABS: Appearance,Urine Cloudy (Clear); Bilirubin,Urine Negative (Negative); Blood,Urine Negative (Negative); Budding Yeast,Urine Few /hpf; Color,Urine Yellow; Glucose,Urine (UA) Negative (Negative); Ketones,Urine Trace (Negative); Leukocyte Esterase,Urine Negative (Negative); Mucus,Urine Rare /hpf; Nitrite,Urine Negative (Negative); Protein,Urine Negative (Negative); RBC,Urine 1 /hpf (0-5); Specific Gravity,Urine 1.017 (1.001-1.035); Urobilinogen,Urine <2.0 mg/dL (<2.0); WBC,Urine 2 /hpf (0-5)
[2021-02-06 20:40] VITALS: PULSE 62
--- NOTE | 2021-02-06 21:21 | CT ---
EXAMINATION TYPE: CT chest angio for PE DATE OF EXAM: 02/06/2021 COMPARISON: None HISTORY: COPD, weakness CT DLP: 233.8 mGycm Automated exposure control for dose reduction was used. CONTRAST: Performed with IV Contrast, patient injected with 100, wasted 27 ml mL of Isovue 370. Images obtained from the thoracic inlet to the diaphragm with IV contrast. There are 3-D post process ed images. There is diffuse pulmonary emphysema. There is some coarse reticular and interstitial infiltrate and pleural thickening at the lung apices on the right side more than the left. There is no mediastinal a denopathy. Thoracic aorta is atheromatous. Ascending aorta measures 3 cm. There is no evidence of lizy ling defect in the pulmonary arteries. There are no hilar masses. There is no evidence of aortic aneu rysm or dissection. There is no pleural effusion. There is no pericardial effusion. There is some anneliese ear infiltrate at the left posterior lung base in the superior segment left lower lobe. The bony thorax is intact. IMPRESSION: COPD. Apical pleural and pulmonary scarring. Left lower lobe mild infiltrate consistent with pneumoni a. No evidence of pulmonary embolism.
[2021-02-06 21:48] VITALS: RESP 18
[2021-02-06] MEDS ORDERED: LEVOFLOXACIN 750 MG TAB PO STA (22:02)
[2021-02-06] MEDS ORDERED: cefTRIAXone IN SWFI 1,000 MG/10 ML SYRINGE IVP ONE (22:15)
[2021-02-06 22:44] VITALS: BP 158/78
== END 2021-02-06 22:43 | disposition home or self-care (01) ==
LOC: EC 16:49
DX: J18.9 Pneumonia, unspecified organism (principal); I10 Essential (primary) hypertension; I48.91 Unspecified atrial fibrillation; J44.9 Chronic obstructive pulmonary disease, unspecified; K21.9 Gastro-esophageal reflux disease without esophagitis; M19.019 Primary osteoarthritis, unspecified shoulder; M81.0 Age-related osteoporosis without current pathological fracture; Z79.01 Long term (current) use of anticoagulants; Z79.52 Long term (current) use of systemic steroids; Z79.899 Other long term (current) drug therapy; Z86.73 Personal history of transient ischemic attack (TIA), and cerebral infarction without residual deficits; Z82.49 Family history of ischemic heart disease and other diseases of the circulatory system; Z87.891 Personal history of nicotine dependence; Z95.0 Presence of cardiac pacemaker; Z20.822 Contact with and (suspected) exposure to COVID-19
CPT/HCPCS: 36415; 94640; 93005; 83880; 80053; 84484; 85025; 85610; 85730; 81001; 87635; 71275; 99285; 96374; 96375; J2930; J0696; Q9967

== ENCOUNTER 2021-02-09 11:50 | Inpatient (IN) | payer MEDICARE, BC ==
[2021-02-09] MEDS ORDERED: methylPREDNISolone SOD SUCCI 125 MG/2 ML VIAL IV STA (12:20)
[2021-02-09] MEDS ORDERED: SODIUM CHLORIDE 0.9% 500 ML 500 ML IV ONE (12:21)
[2021-02-09] MEDS ORDERED: IPRATROPIUM-ALBUTEROL 3 ML NEB INHALATION STA (12:21)
[2021-02-09] MEDS ORDERED: ALBUTEROL NEBULIZED 2.5 MG/3 ML INHALATION STA (12:21)
--- NOTE | 2021-02-09 12:29 | ED ---
General Adult HPI - General Chief complaint: Weakness Stated complaint: light headed/weakness Time Seen by Provider: 02/09/21 12:11 Source: patient, family, RN notes reviewed, old records reviewed Mode of arrival: wheelchair Limitations: no limitations - History of Present Illness Initial comments: 85-year-old female presenting for evaluation of generalized weakness, increased dyspnea. Patient has history of COPD she is on 2 L of oxygen normally. She's had an increased need over the past several days. She was seen in the emergency department and noted to have a pneumonia. She was treated with oral antibiotics at the patient's request. She denies fever. She denies central chest pain. She reports increased generalized weakness and fatigue as well as increased dyspnea. She has been vaccinated against coronavirus. - Related Data Home Medications Medication Instructions Recorded Confirmed Apixaban [Eliquis] 2.5 mg PO BID 09/08/20 02/09/21 Fluticasone/Umeclidin/Vilanter 1 puff INHALATION RT-DAILY 09/08/20 02/09/21 [Trelegy Ellipta 100-62.5-25] HYDROcodone/APAP 5-325MG [[place] 1 tab PO HS 09/08/20 02/09/21 5-325] Ipratropium-Albuterol Nebulize 3 ml INHALATION RT-QID 09/08/20 02/09/21 [Duoneb 0.5 mg-3 mg/3 ml Soln] Omeprazole 20 mg PO DAILY 09/08/20 02/09/21 Simvastatin [Zocor] 10 mg PO HS 09/08/20 02/09/21 predniSONE 5 mg PO DAILY 09/08/20 02/09/21 Fexofenadine HCl [Toyin Allergy] 180 mg PO DAILY 09/19/20 02/09/21 Amiodarone [Cordarone] 200 mg PO DAILY 02/06/21 02/09/21 Donepezil HCl [Aricept] 5 mg PO HS 02/06/21 02/09/21 lisinopriL [Zestril] 20 mg PO BID 02/06/21 02/09/21 Previous Rx's Medication Instructions Recorded Metoprolol Tartrate [Lopressor] 50 mg PO BID #180 tab 09/25/20 Levofloxacin [Levaquin] 750 mg PO DAILY 4 Days #4 tab 02/06/21 Allergies Allergy/AdvReac Type Severity Reaction Status Date / Time No Known Allergies Allergy Verified 02/09/21 14:07 Review of Systems ROS Statement: Those systems with pertinent positive or pertinent negative responses have been documented in the HPI. ROS Other: All systems not noted in ROS Statement are negative. Past Medical History Past Medical History: Atrial Fibrillation, COPD, CVA/TIA, GERD/Reflux, Hypertension, Memory Impairment, Musculoskeletal Disorder, Osteoarthritis (OA) Additional Past Medical History / Comment(s): left wrist, shoulder & forearm fracture in Mar. after a fall, uses oxygen cont. @2l, recent hospitalization for episodes of passing out, osteoporosis, very tender ankles & lower legs, very thin skin, see Dr El H & P History of Any Multi-Drug Resistant Organisms: None Reported Past Surgical History: Pacemaker Additional Past Surgical History / Comment(s): hemorroidectomy Past Anesthesia/Blood Transfusion Reactions: No Reported Reaction Past Psychological History: No Psychological Hx Reported Smoking Status: Former smoker Past Alcohol Use History: None Reported Past Drug Use History: None Reported - Past Family History Mother Family Medical History: CVA/TIA Father Family Medical History: Chest Pain / Angina, Congestive Heart Failure (CHF), Coronary Artery Disease (CAD) General Exam Limitations: no limitations General appearance: alert, in distress (Moderate respiratory distress) Head exam: Present: atraumatic, normocephalic Eye exam: Present: normal appearance, PERRL ENT exam: Present: mucous membranes dry Neck exam: Present: normal inspection. Absent: tenderness, meningismus Respiratory exam: Present: respiratory distress, wheezes, accessory muscle use, decreased breath sounds Cardiovascular Exam: Present: regular rate, normal rhythm GI/Abdominal exam: Present: soft. Absent: distended, tenderness, guarding Extremities exam: Present: normal inspection, normal capillary refill. Absent: pedal edema Neurological exam: Present: alert, oriented X3, CN II-XII intact. Absent: motor sensory deficit Psychiatric exam: Present: normal affect, normal mood Skin exam: Present: warm, dry, intact. Absent: cyanosis, diaphoretic Course Vital Signs 02/09/21 02/09/21 02/09/21 12:03 13:03 13:15 Temperature 97.0 F L Pulse Rate 59 L 60 60 Respiratory 16 Rate Blood Pressure 81/41 O2 Sat by Pulse 93 L Oximetry 02/09/21 02/09/21 13:20 14:30 Temperature Pulse Rate 60 60 Respiratory 20 18 Rate Blood Pressure 99/49 109/51 O2 Sat by Pulse 100 98 Oximetry EKG Findings - EKG Comments: EKG Findings:: EKG: Atrial paced rhythm rate of 60, TN interval 206, QRS duration 94, QTC 422 Medical Decision Making - Medical Decision Making 85-year-old female presenting with worsening dyspnea, recent diagnosis of p neumonia and COPD exacerbation. Patient's has increased oxygen requirements. She had a left lower lobe pneumonia. Mild leukocytosis. Hemoglobin is stable at 11. She has a negative troponin, negative BNP. She is on Eliquis. She will be admitted for IV antibiotics and IV fluids as well as treatment COPD exacerbation. Case discussed with Dr. Warner, who will admit. - Lab Data Result diagrams: 02/09/21 12:38 02/09/21 12:38 Lab Results 02/09/21 02/09/21 02/09/21 Range/Units 12:38 12:38 12:38 WBC 11.2 H (3.8-10.6) k/uL RBC 4.42 (3.80-5.40) m/uL Hgb 11.1 L (11.4-16.0) gm/dL Hct 38.2 (34.0-46.0) % MCV 86.3 (80.0-100.0) fL MCH 25.0 (25.0-35.0) pg MCHC 29.0 L (31.0-37.0) g/dL RDW 14.7 (11.5-15.5) % Plt Count 322 (150-450) k/uL MPV 7.2 Neutrophils % 84 % Lymphocytes % 9 % Monocytes % 5 % Eosinophils % 1 % Basophils % 1 % Neutrophils # 9.5 H (1.3-7.7) k/uL Lymphocytes # 1.0 (1.0-4.8) k/uL Monocytes # 0.5 (0-1.0) k/uL Eosinophils # 0.1 (0-0.7) k/uL Basophils # 0.1 (0-0.2) k/uL Hypochromasia Marked PT 10.8 (9.0-12.0) sec INR 1.0 (<1.2) APTT 22.3 (22.0-30.0) sec Sodium 140 (137-145) mmol/L Potassium 3.8 (3.5-5.1) mmol/L Chloride 99 (98-107) mmol/L Carbon Dioxide 33 H (22-30) mmol/L Anion Gap 8 mmol/L BUN 24 H (7-17) mg/dL Creatinine 0.97 (0.52-1.04) mg/dL Est GFR (CKD-EPI)AfAm 61 (>60 ml/min/1.73 sqM) Est GFR (CKD-EPI)NonAf 53 (>60 ml/min/1.73 sqM) Glucose 108 H (74-99) mg/dL Plasma Lactic Acid Lyle (0.7-2.0) mmol/L Calcium 9.4 (8.4-10.2) mg/dL Magnesium 2.2 (1.6-2.3) mg/dL Total Bilirubin 0.6 (0.2-1.3) mg/dL AST 37 H (14-36) U/L ALT 37 H (4-34) U/L Alkaline Phosphatase 54 (38-126) U/L Troponin I (0.000-0.034) ng/mL NT-Pro-B Natriuret Pep pg/mL Total Protein 6.5 (6.3-8.2) g/dL Albumin 3.7 (3.5-5.0) g/dL TSH 1.870 (0.465-4.680) mIU/L Coronavirus (PCR) (Not Detectd) 02/09/21 02/09/21 02/09/21 Range/Units 12:38 12:38 12:38 WBC (3.8-10.6) k/uL RBC (3.80-5.40) m/uL Hgb (11.4-16.0) gm/dL Hct (34.0-46.0) % MCV (80.0-100.0) fL MCH (25.0-35.0) pg MCHC (31.0-37.0) g/dL RDW (11.5-15.5) % Plt Count (150-450) k/uL MPV Neutrophils % % Lymphocytes % % Monocytes % % Eosinophils % % Basophils % % Neutrophils # (1.3-7.7) k/uL Lymphocytes # (1.0-4.8) k/uL Monocytes # (0-1.0) k/uL Eosinophils # (0-0.7) k/uL Basophils # (0-0.2) k/uL Hypochromasia PT (9.0-12.0) sec INR (<1.2) APTT (22.0-30.0) sec Sodium (137-145) mmol/L Potassium (3.5-5.1) mmol/L Chloride (98-107) mmol/L Carbon Dioxide (22-30) mmol/L Anion Gap mmol/L BUN (7-17) mg/dL Creatinine (0.52-1.04) mg/dL Est GFR (CKD-EPI)AfAm (>60 ml/min/1.73 sqM) Est GFR (CKD-EPI)NonAf (>60 ml/min/1.73 sqM) Glucose (74-99) mg/dL Plasma Lactic Acid Lyle 2.1 H* (0.7-2.0) mmol/L Calcium (8.4-10.2) mg/dL Magnesium (1.6-2.3) mg/dL Total Bilirubin (0.2-1.3) mg/dL AST (14-36) U/L ALT (4-34) U/L Alkaline Phosphatase (38-126) U/L Troponin I <0.012 (0.000-0.034) ng/mL NT-Pro-B Natriuret Pep 964 pg/mL Total Protein (6.3-8.2) g/dL Albumin (3.5-5.0) g/dL TSH (0.465-4.680) mIU/L Coronavirus (PCR) (Not Detectd) 02/09/21 Range/Units 12:38 WBC (3.8-10.6) k/uL RBC (3.80-5.40) m/uL Hgb (11.4-16.0) gm/dL Hct (34.0-46.0) % MCV (80.0-100.0) fL MCH (25.0-35.0) pg MCHC (31.0-37.0) g/dL RDW (11.5-15.5) % Plt Count (150-450) k/uL MPV Neutrophils % % Lymphocytes % % Monocytes % % Eosinophils % % Basophils % % Neutrophils # (1.3-7.7) k/uL Lymphocytes # (1.0-4.8) k/uL Monocytes # (0-1.0) k/uL Eosinophils # (0-0.7) k/uL Basophils # (0-0.2) k/uL Hypochromasia PT (9.0-12.0) sec INR (<1.2) APTT (22.0-30.0) sec Sodium (137-145) mmol/L Potassium (3.5-5.1) mmol/L Chloride (98-107) mmol/L Carbon Dioxide (22-30) mmol/L Anion Gap mmol/L BUN (7-17) mg/dL Creatinine (0.52-1.04) mg/dL Est GFR (CKD-EPI)AfAm (>60 ml/min/1.73 sqM) Est GFR (CKD-EPI)NonAf (>60 ml/min/1.73 sqM) Glucose (74-99) mg/dL Plasma Lactic Acid Lyle (0.7-2.0) mmol/L Calcium (8.4-10.2) mg/dL Magnesium (1.6-2.3) mg/dL Total Bilirubin (0.2-1.3) mg/dL AST (14-36) U/L ALT (4-34) U/L Alkaline Phosphatase (38-126) U/L Troponin I (0.000-0.034) ng/mL NT-Pro-B Natriuret Pep pg/mL Total Protein (6.3-8.2) g/dL Albumin (3.5-5.0) g/dL TSH (0.465-4.680) mIU/L Coronavirus (PCR) Not Detected (Not Detectd) Critical Care Time Critical Care Time: Yes Total Critical Care Time: 35 Disposition Clinical Impression: Pneumonia, COPD (chronic obstructive pulmonary disease) Disposition: ADMITTED IP TO THIS [facility] Condition: Stable Is patient prescribed a controlled substance at d/c from ED?: No Referrals: Norris Hermosillo MD [Primary Care Provider] - 1-2 days Decision to Admit Reason: Admit from EC Decision Date: 02/09/21 Decision Time: 14:42
[2021-02-09] MEDS ORDERED: SODIUM CHLORIDE 0.9% 1,000 ML IV SCH (12:30)
[2021-02-09 13:04] LABS: Basophils # (A) 0.1 k/uL (0-0.2); Basophils % (A) 1 %; Eosinophils # (A) 0.1 k/uL (0-0.7); Eosinophils % (A) 1 %; HCT 38.2 % (34.0-46.0); HGB 11.1 gm/dL (11.4-16.0); Hypochromasia Marked; Lymphocytes % (A) 9 %; MCV 86.3 fL (80.0-100.0); Mean Platelet Volume 7.2; Monocytes # (A) 0.5 k/uL (0-1.0); Monocytes % (A) 5 %; Neutrophils # (A) 9.5 k/uL (1.3-7.7); Neutrophils % (A) 84 %; Platelet Count 322 k/uL (150-450); RBC 4.42 m/uL (3.80-5.40); RDW 14.7 % (11.5-15.5); WBC 11.2 k/uL (3.8-10.6)
[2021-02-09 13:29] LABS: Partial Thromboplastin Time 22.3 sec (22.0-30.0); Prothrombin Time 10.8 sec (9.0-12.0)
[2021-02-09 13:33] LABS: ALT 37 U/L (4-34); AST 37 U/L (14-36); African American GFR (CKD) 61 (>60 ml/min/1.73 sqM); Albumin 3.7 g/dL (3.5-5.0); Alkaline Phosphatase 54 U/L (38-126); Anion Gap 8 mmol/L; Blood Urea Nitrogen 24 mg/dL (7-17); Calcium 9.4 mg/dL (8.4-10.2); Carbon Dioxide 33 mmol/L (22-30); Chloride 99 mmol/L (98-107); Glucose 108 mg/dL (74-99); Magnesium 2.2 mg/dL (1.6-2.3); Non-African American GFR(CKD) 53 (>60 ml/min/1.73 sqM); Potassium 3.8 mmol/L (3.5-5.1); Sodium 140 mmol/L (137-145); Total Bilirubin 0.6 mg/dL (0.2-1.3); Total Protein 6.5 g/dL (6.3-8.2)
[2021-02-09] MEDS ORDERED: NALOXONE 0.4 MG/ML 1 ML VIAL IV PRN (14:40)
[2021-02-09] MEDS ORDERED: cefTRIAXone IN SWFI 1,000 MG/10 ML SYRINGE IVP STA (14:40)
[2021-02-09] MEDS ORDERED: AZITHROMYCIN 500 MG in SODIUM CHLORIDE 0.9% 250 ML IVPB STA (14:40)
--- NOTE | 2021-02-09 15:00 | P.HPIM ---
History of Present Illness H&P Date: 02/09/21 This is a 85-year-old female with past medical history noted below significant for underlying COPD on home O2 that presented to the emergency room with progressive weakness and shortness of breath. Patient was in the ER couple of days ago and underwent computed tomography scan of the chest showing evidence of underlying pneumonia sent home with prescription for Levaquin. Patient said that she continues to be weak and her shortness of breath is getting worse so she presented again today. She is having intermittent cough that is occasionally productive of white phlegm. She denies fevers or chills. Her son at bedside told me that for the last 2 weeks patient is been becoming more weak and is barely able to walk to the bathroom at home. He also increased her oxygen to 3 L from her baseline of 2. He told me that her oxygen at home is dropping to the 80s when she gets up and ambulate. CT angiogram couple of days ago was negative for PE. Patient is on anticoagulation for underlying A. fib. Patient is nontoxic looking in the ER. She'll be admitted to the hospital for further management. Review of Systems Review of system: 14 points review of systems were obtained and were negative except to what were mentioned in the HPI. Past Medical History Past Medical History: Atrial Fibrillation, COPD, CVA/TIA, GERD/Reflux, Hypertension, Memory Impairment, Musculoskeletal Disorder, Osteoarthritis (OA) Additional Past Medical History / Comment(s): left wrist, shoulder & forearm fracture in Mar. after a fall, uses oxygen cont. @2l, recent hospitalization for episodes of passing out, osteoporosis, very tender ankles & lower legs, very thin skin, see Dr El H & P History of Any Multi-Drug Resistant Organisms: None Reported Past Surgical History: Pacemaker Additional Past Surgical History / Comment(s): hemorroidectomy Past Anesthesia/Blood Transfusion Reactions: No Reported Reaction Past Psychological History: No Psychological Hx Reported Smoking Status: Former smoker Past Alcohol Use History: None Reported Past Drug Use History: None Reported - Past Family History Mother Family Medical History: CVA/TIA Father Family Medical History: Chest Pain / Angina, Congestive Heart Failure (CHF), Coronary Artery Disease (CAD) Medications and Allergies Home Medications Medication Instructions Recorded Confirmed Type Apixaban [Eliquis] 2.5 mg PO BID 09/08/20 02/09/21 History Fluticasone/Umeclidin/Vilanter 1 puff INHALATION RT-DAILY 09/08/20 02/09/21 History [Trelegy Ellipta 100-62.5-25] HYDROcodone/APAP 5-325MG [[place] 1 tab PO HS 09/08/20 02/09/21 History 5-325] Ipratropium-Albuterol Nebulize 3 ml INHALATION RT-QID 09/08/20 02/09/21 History [Duoneb 0.5 mg-3 mg/3 ml Soln] Omeprazole 20 mg PO DAILY 09/08/20 02/09/21 History Simvastatin [Zocor] 10 mg PO HS 09/08/20 02/09/21 History predniSONE 5 mg PO DAILY 09/08/20 02/09/21 History Fexofenadine HCl [Toyin Allergy] 180 mg PO DAILY 09/19/20 02/09/21 History Metoprolol Tartrate [Lopressor] 50 mg PO BID #180 tab 09/25/20 02/09/21 Rx Amiodarone [Cordarone] 200 mg PO DAILY 02/06/21 02/09/21 History Donepezil HCl [Aricept] 5 mg PO HS 02/06/21 02/09/21 History Levofloxacin [Levaquin] 750 mg PO DAILY 4 Days #4 tab 02/06/21 02/09/21 Rx lisinopriL [Zestril] 20 mg PO BID 02/06/21 02/09/21 History Allergies Allergy/AdvReac Type Severity Reaction Status Date / Time No Known Allergies Allergy Verified 02/09/21 14:07 Physical Exam Vitals: Vital Signs Temp Pulse Resp BP Pulse Ox 02/09/21 14:30 60 18 109/51 98 02/09/21 13:20 60 20 99/49 100 02/09/21 13:15 60 02/09/21 13:03 60 02/09/21 12:03 97.0 F L 59 L 16 81/41 93 L Intake and Output 02/08/21 02/09/21 02/09/21 22:59 06:59 14:59 Other: Weight 45.359 kg General: The patient is awake and alert, in no distress Eye: there is normal conjunctiva bilaterally. Neck: The neck is supple, there is no JVD. Cardiovascular: Normal S1-S2, no S3-S4, no murmurs. Respiratory: Lungs are diminished bilaterally Gastrointestinal: Abdomen is soft, nontender Musculoskeletal: There is no pedal edema. Neurological:. Speech is normal. Skin: Skin is warm and dry Results CBC & Chem 7: 02/09/21 12:38 02/09/21 12:38 Labs: Abnormal Lab Results - Last 24 Hours (Table) 02/09/21 02/09/21 02/09/21 Range/Units 12:38 12:38 12:38 WBC 11.2 H (3.8-10.6) k/uL Hgb 11.1 L (11.4-16.0) gm/dL MCHC 29.0 L (31.0-37.0) g/dL Neutrophils # 9.5 H (1.3-7.7) k/uL Carbon Dioxide 33 H (22-30) mmol/L BUN 24 H (7-17) mg/dL Glucose 108 H (74-99) mg/dL Plasma Lactic Acid Lyle 2.1 H* (0.7-2.0) mmol/L AST 37 H (14-36) U/L ALT 37 H (4-34) U/L Assessment and Plan Assessment: 1. Acute COPD exacerbation 2. Community-acquired pneumonia, patient received 2 days of Levaquin. I would continue with IV ceftriaxone and oral azithromycin. Check pro calcitonin. 3. Acute on chronic hypoxic respiratory failure 4. Generalized weakness/physical debility 5. Chronic atrial fibrillation on anticoagulation with Eliquis 6. Hypertension Today, I reviewed her medication list and lab work results Continue duo nebs every 6 hours and start IV Solu-Medrol 40 mg every 8 hours Pulmonary consulted for further evaluation Hold home dose of prednisone 5 mg daily. Resume home medications otherwise. PT/OT evaluation
--- NOTE | 2021-02-09 15:27 | XR ---
EXAMINATION TYPE: XR chest 2V DATE OF EXAM: 02/09/2021 COMPARISON: 09/24/2020 HISTORY: Weakness TECHNIQUE: Frontal and lateral views of the chest are obtained. FINDINGS: There is no focal air space opacity, pleural effusion, or pneumothorax seen. The cardiac silhouette size is within normal limits. There is a remote fracture of the proximal left humerus. The re is a 2-lead cardiac pacemaker. IMPRESSION: No acute cardiopulmonary process.
[2021-02-09] MEDS: methylPREDNISolone SOD SUCCI 40 MG/ML 1 ML VIAL IV SCH ×2 (15:45→22:17)
[2021-02-09] MEDS: IPRATROPIUM-ALBUTEROL 3 ML NEB INHALATION SCH ×2 (15:45→20:17)
[2021-02-09] MEDS: HYDROcodone/APAP 5-325MG 1 EACH TAB PO SCH (20:04)
[2021-02-09] MEDS: APIXABAN 2.5 MG TABLET PO SCH (20:04)
[2021-02-09] MEDS: lisinopriL 20 MG TAB PO SCH (20:05)
[2021-02-09] MEDS: METOPROLOL TARTRATE 50 MG TAB PO SCH (20:05)
[2021-02-09] MEDS: ATORVASTATIN 10 MG TAB PO SCH (20:05)
[2021-02-09] MEDS: DONEPEZIL 5 MG TAB PO SCH (22:17)
[2021-02-10] MEDS: IPRATROPIUM-ALBUTEROL 3 ML NEB INHALATION PRN (01:35)
[2021-02-10 06:10] LABS: Appearance,Urine Clear (Clear); Bacteria,Urine Rare /hpf; Bilirubin,Urine Negative (Negative); Blood,Urine Negative (Negative); Color,Urine Yellow; Glucose,Urine (UA) 4+ (Negative); Ketones,Urine Negative (Negative); Leukocyte Esterase,Urine Negative (Negative); Mucus,Urine Rare /hpf; Nitrite,Urine Negative (Negative); PH, Urine 5.5 (5.0-8.0); Protein,Urine 1+ (Negative); Specific Gravity,Urine 1.031 (1.001-1.035); Squamous Epithelial Cell,Urine 1 /hpf (0-4); Urobilinogen,Urine <2.0 mg/dL (<2.0); WBC,Urine 1 /hpf (0-5)
[2021-02-10] MEDS: methylPREDNISolone SOD SUCCI 40 MG/ML 1 ML VIAL IV SCH ×2 (06:32→18:47)
[2021-02-10] MEDS: IPRATROPIUM-ALBUTEROL 3 ML NEB INHALATION SCH ×4 (08:32→21:04)
[2021-02-10] MEDS: SYMBICORT 80-4.5 MCG INHALER INHALATION SCH ×2 (08:34→21:03)
[2021-02-10] MEDS: METOPROLOL TARTRATE 50 MG TAB PO SCH ×2 (08:51→20:18)
[2021-02-10] MEDS: ACETAMINOPHEN TAB 325 MG TAB PO PRN (08:51)
[2021-02-10] MEDS: PANTOPRAZOLE 40 MG TABLET PO SCH (08:51)
[2021-02-10] MEDS: AMIODARONE 200 MG TAB PO SCH (08:51)
[2021-02-10] MEDS: lisinopriL 20 MG TAB PO SCH ×2 (08:51→20:18)
[2021-02-10] MEDS: APIXABAN 2.5 MG TABLET PO SCH ×2 (08:51→20:18)
[2021-02-10] MEDS ORDERED: AZITHROMYCIN 250 MG TAB PO SCH (09:45)
--- NOTE | 2021-02-10 10:53 | P.CNPUL ---
History of Present Illness Consult date: 02/10/21 Reason for consult: dyspnea, pneumonia History of present illness: 85-year-old female patient with known history of COPD, on home O2, presented to hospital because of worsening shortness of breath. The patient was in the ED few days back for the same complaints of worsening shortness of breath. A CAT scan of the chest was done at that time the patient was given a diagnosis of pneumonia the patient was discharged home on Levaquin. I reviewed the CAT scan of the chest that was done on this patient back then and this was done on 02/06/[address] angiogram protocol. The CAT scan revealed severe emphysematous changes with upper lobe predominance more so in the right. There was some limited infiltration in the left lung base consistent with some questionable pneumonia and for that reason the patient was discharged home on Levaquin. The patient came back to the hospital for the same. Denies having any fever or chills. She has been becoming progressively more short of breath according to her. She has chronic atrial fibrillation. She has limited on long-term anticoagulation. Her blood work during this current admission showed a white cell count of 11.2, hemoglobin stable at 11.1, lactic acid was 2.1 at the time of admission and dropped down to 0.9, X are normal, LFTs are normal, troponins are normal, BNP level is 954, UA shows increased glucose and the COVID 19 testing was negative. A repeat chest x-ray was done in the emergency department that showed no significant abnormalities other than some hyperinflation and COPD. The echocardiogram that was done also on 09/11/2020 showed a normal ejection fraction of 55%. The patient has moderate aortic sclerosis. Review of Systems Constitutional: Reports anorexia, Reports weakness, Reports weight loss Eyes: denies as per HPI, denies blurred vision, denies bulging eye, denies decreased vision, denies diplopia, denies discharge, denies dry eye, denies irritation, denies itching, denies pain, denies photophobia, denies loss of peripheral vision, denies loss of vision, denies tunnel vision/blind spots Ears: deny: decreased hearing, ear discharge, earache, tinnitus Ears, nose, mouth and throat: Reports as per HPI Breasts: absent: as per HPI, change in shape, gynecomastia, masses, nipple discharge, pain, skin changes, swelling Cardiovascular: Reports decreased exercise tolerance, Reports dyspnea on exertion Respiratory: Reports cough, Reports dyspnea Gastrointestinal: Reports as per HPI Genitourinary: Reports as per HPI Menstruation: Reports as per HPI Musculoskeletal: Reports as per HPI, Reports muscle weakness Musculoskeletal: absent: ankle pain, ankle stiffness, ankle swelling, as per HPI, elbow pain, elbow stiffness, elbow swelling, foot pain, foot stiffness, foot swelling, hand pain, hand stiffness, hand swelling, hip pain, hip stiffness, hip swelling, knee pain, knee stiffness, knee swelling, shoulder pain, shoulder stiffness, shoulder swelling, wrist pain, wrist stiffness, wrist swelling Integumentary: Reports as per HPI Neurological: Reports as per HPI, Reports weakness Psychiatric: Reports as per HPI Endocrine: Reports as per HPI Hematologic/Lymphatic: Reports as per HPI Allergic/Immunologic: Reports as per HPI Past Medical History Past Medical History: Atrial Fibrillation, COPD, CVA/TIA, GERD/Reflux, Hypertension, Memory Impairment, Musculoskeletal Disorder, Osteoarthritis (OA) Additional Past Medical History / Comment(s): left wrist, shoulder & forearm fracture in Mar. after a fall, uses oxygen cont. @2l, recent hospitalization for episodes of passing out, osteoporosis, very tender ankles & lower legs, very thin skin, see Dr El H & P History of Any Multi-Drug Resistant Organisms: None Reported Past Surgical History: Pacemaker Additional Past Surgical History / Comment(s): hemorroidectomy Past Anesthesia/Blood Transfusion Reactions: No Reported Reaction Type of Cardiac Device: Permanent Pacemaker Device Placement Date:: 07/2020 Past Psychological History: No Psychological Hx Reported Smoking Status: Former smoker Past Alcohol Use History: None Reported Additional Past Alcohol Use History / Comment(s): quit smoking 10-12 years ago, started smoking @age of 13, 1ppd Past Drug Use History: None Reported - Past Family History Mother Family Medical History: CVA/TIA Father Family Medical History: Chest Pain / Angina, Congestive Heart Failure (CHF), Coronary Artery Disease (CAD) Medications and Allergies Home Medications Medication Instructions Recorded Confirmed Type Apixaban [Eliquis] 2.5 mg PO BID 09/08/20 02/09/21 History Fluticasone/Umeclidin/Vilanter 1 puff INHALATION RT-DAILY 09/08/20 02/09/21 History [Trelegy Ellipta 100-62.5-25] HYDROcodone/APAP 5-325MG [Hickman 1 tab PO HS 09/08/20 02/09/21 History 5-325] Ipratropium-Albuterol Nebulize 3 ml INHALATION RT-QID 09/08/20 02/09/21 History [Duoneb 0.5 mg-3 mg/3 ml Soln] Omeprazole 20 mg PO DAILY 09/08/20 02/09/21 History Simvastatin [Zocor] 10 mg PO HS 09/08/20 02/09/21 History predniSONE 5 mg PO DAILY 09/08/20 02/09/21 History Fexofenadine HCl [Toyin Allergy] 180 mg PO DAILY 09/19/20 02/09/21 History Metoprolol Tartrate [Lopressor] 50 mg PO BID #180 tab 09/25/20 02/09/21 Rx Amiodarone [Cordarone] 200 mg PO DAILY 02/06/21 02/09/21 History Donepezil HCl [Aricept] 5 mg PO HS 02/06/21 02/09/21 History Levofloxacin [Levaquin] 750 mg PO DAILY 4 Days #4 tab 02/06/21 02/09/21 Rx lisinopriL [Zestril] 20 mg PO BID 02/06/21 02/09/21 History Allergies Allergy/AdvReac Type Severity Reaction Status Date / Time No Known Allergies Allergy Verified 02/09/21 16:16 Physical Exam Vitals: Vital Signs Temp Pulse Pulse Pulse Resp BP BP 02/10/21 08:47 70 02/10/21 08:34 66 02/10/21 08:00 15 02/10/21 07:27 97.9 F 64 20 143/65 02/10/21 02:00 97.6 F 61 143/78 02/10/21 01:46 63 02/10/21 01:35 62 02/09/21 20:29 82 02/09/21 20:17 93 02/09/21 20:00 98.1 F 60 14 130/67 02/09/21 18:20 97.7 F 63 20 153/63 02/09/21 15:57 69 02/09/21 15:45 67 02/09/21 15:00 60 20 109/51 02/09/21 14:30 60 18 109/51 02/09/21 14:00 60 24 99/49 02/09/21 13:20 60 20 99/49 02/09/21 13:15 60 02/09/21 13:03 60 02/09/21 12:03 97.0 F L 59 L 16 81/41 Pulse Ox 02/10/21 08:47 02/10/21 08:34 02/10/21 08:00 02/10/21 07:27 96 02/10/21 02:00 98 02/10/21 01:46 02/10/21 01:35 02/09/21 20:29 02/09/21 20:17 02/09/21 20:00 98 02/09/21 18:20 96 02/09/21 15:57 02/09/21 15:45 02/09/21 15:00 100 02/09/21 14:30 98 02/09/21 14:00 97 02/09/21 13:20 100 02/09/21 13:15 02/09/21 13:03 02/09/21 12:03 93 L Intake and Output 02/09/21 02/10/21 02/10/21 22:59 06:59 14:59 Intake Total 240 600 Output Total 200 Balance 40 600 Intake: Intake, IV Titration 240 Amount Sodium Chloride 0.9% 1, 240 000 ml @ 130 mls/hr IV . [facility]H42M [facility] Rx#:[id number] Oral 600 Output: Urine 200 Other: Voiding Method Bedside Commode # Voids 1 # Bowel Movements 1 Weight 45.359 kg Gen: awake, alert HEENT: normocephalic, atraumatic, good hearing acuity, moist mucous membranes Resp: Marked diminished breath sounds bilaterally along with significant drop in air entry throughout the lung mccall. Scattered expiratory wheezes especially with forced exhalation. Cardiac exam revealed the PMI to be normally situated and sized. The rhythm was regular and no extrasystoles were noted during several minutes of auscultation. The first and second heart sounds were normal and physiologic splitting of the second heart sound was noted. There were no murmurs, rubs, clicks, or gallops. Abdominal exam revealed normal bowel sounds. The abdomen was soft, non-tender, and without masses, organomegaly, or appreciable enlargement of the abdominal aorta. : no SPT, no CVAT, nichols catheter not present Examination of the extremities revealed easily palpable radial, femoral and pedal pulses. There was no cyanosis, clubbing or edema. Neurologically, the patient is awake and alert and the patient does not have any focal neurological deficit. Cranial nerves are essentially intact. Psych: cooperative, euthymic mood Results - Laboratory Findings CBC and BMP: 02/09/21 12:38 02/09/21 12:38 PT/INR, D-dimer PT 10.8 sec (9.0-12.0) 02/09/21 12:38 INR 1.0 (<1.2) 02/09/21 12:38 Abnormal lab findings: Abnormal Labs 02/09/21 02/09/21 02/09/21 12:38 12:38 12:38 WBC 11.2 H Hgb 11.1 L MCHC 29.0 L Neutrophils # 9.5 H Carbon Dioxide 33 H BUN 24 H Glucose 108 H Plasma Lactic Acid Lyle 2.1 H* AST 37 H ALT 37 H Urine Protein Urine Glucose (UA) Urine Bacteria Urine Mucus 02/10/21 05:20 WBC Hgb MCHC Neutrophils # Carbon Dioxide BUN Glucose Plasma Lactic Acid Lyle AST ALT Urine Protein 1+ H Urine Glucose (UA) 4+ H Urine Bacteria Rare H Urine Mucus Rare H - Diagnostic Findings Chest x-ray: image reviewed Assessment and Plan Plan: 1 COPD exacerbation, will be treated accordingly and the patient has no clear indication for pneumonia. 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 This was i nserted by Dr. Ellis. Plan Continue DuoNeb nebulized treatments around the clock IV Solu Medrol to be transitioned to prednisone burst taper at time of discharge Trelegy Ellipta is an excellent choice for this patient to be continued on outpatient basis in my opinion. This will be further discussed with Dr. Michael Home O2 Rehabilitation We'll continue to follow
--- NOTE | 2021-02-10 15:04 | P.PN ---
Subjective Patient is doing well today. Shortness of breath is improving. No acute events overnight reported to me by nursing staff. Objective - Vital Signs Vital signs: Vital Signs Temp 98.3 F 02/10/21 13:55 Pulse 70 02/10/21 13:55 Resp 18 02/10/21 13:55 BP 143/67 02/10/21 13:55 Pulse Ox 96 02/10/21 13:55 Intake & Output 02/09/21 02/10/21 02/10/21 18:59 06:59 18:59 Intake Total 240 600 Output Total 200 Balance 40 600 Weight 45.359 kg Intake: Intake, IV Titration 240 Amount Sodium Chloride 0.9% 1, 240 000 ml @ 130 mls/hr IV . Q7H42M [facility] Rx#:[id number] Oral 600 Output: Urine 200 Other: Voiding Method Bedside Commode # Voids 1 # Bowel Movements 1 - Exam General: The patient is awake and alert, in no distress Eye: there is normal conjunctiva bilaterally. Neck: The neck is supple, there is no JVD. Cardiovascular: Normal S1-S2, no S3-S4, no murmurs. Respiratory: Lungs slightly diminished with no obvious wheezing Gastrointestinal: Abdomen is soft, nontender Musculoskeletal: There is no pedal edema. Neurological:. Speech is normal. Skin: Skin is warm and dry - Labs CBC & Chem 7: 02/09/21 12:38 02/09/21 12:38 Labs: Abnormal Lab Results - Last 24 Hours (Table) 02/10/21 Range/Units 05:20 Urine Protein 1+ H (Negative) Urine Glucose (UA) 4+ H (Negative) Urine Bacteria Rare H (None) /hpf Urine Mucus Rare H (None) /hpf Microbiology - Last 24 Hours (Table) 02/09/21 12:38 Blood Culture - Preliminary Blood No Growth after 24 hours 02/09/21 12:38 Blood Culture - Preliminary Blood No Growth after 24 hours Assessment and Plan Assessment: 1. Acute COPD exacerbation 2. Suspected community-acquired pneumonia on presentation, ruled out. Pro- calcitonin normal. Antibiotic will be discontinued. 3. Acute on chronic hypoxic respiratory failure 4. Generalized weakness/physical debility 5. Chronic atrial fibrillation on anticoagulation with Eliquis 6. Hypertension Today, I reviewed her medication list and lab work results Transition steroids to oral prednisone starting tomorrow Pulmonary consulted for further evaluation, appreciate recommendation Hold home dose of prednisone 5 mg daily. Resume home medications otherwise. PT/OT evaluation Plan for placement per family request. alcoholism worker consulted
[2021-02-10] MEDS: HYDROcodone/APAP 5-325MG 1 EACH TAB PO SCH (20:17)
[2021-02-10] MEDS: ATORVASTATIN 10 MG TAB PO SCH (20:18)
[2021-02-10] MEDS: DONEPEZIL 5 MG TAB PO SCH (20:18)
[2021-02-11] MEDS ORDERED: IPRATROPIUM-ALBUTEROL 3 ML NEB ONE (00:10)
[2021-02-11 07:22] LABS: African American GFR (CKD) >90 (>60 ml/min/1.73 sqM); Anion Gap 2 mmol/L; Blood Urea Nitrogen 19 mg/dL (7-17); Calcium 9.1 mg/dL (8.4-10.2); Carbon Dioxide 31 mmol/L (22-30); Chloride 109 mmol/L (98-107); Glucose 107 mg/dL (74-99); Non-African American GFR(CKD) 79 (>60 ml/min/1.73 sqM); Potassium 5.6 mmol/L (3.5-5.1); Sodium 142 mmol/L (137-145)
[2021-02-11] MEDS: SYMBICORT 80-4.5 MCG INHALER INHALATION SCH ×2 (07:23→20:54)
[2021-02-11] MEDS: IPRATROPIUM-ALBUTEROL 3 ML NEB INHALATION SCH ×4 (07:23→20:54)
[2021-02-11] MEDS: predniSONE 20 MG TAB PO SCH (08:00)
[2021-02-11] MEDS: METOPROLOL TARTRATE 50 MG TAB PO SCH ×2 (08:00→20:42)
[2021-02-11] MEDS: APIXABAN 2.5 MG TABLET PO SCH ×2 (08:00→20:42)
[2021-02-11] MEDS: lisinopriL 20 MG TAB PO SCH ×2 (08:00→20:42)
[2021-02-11] MEDS: AMIODARONE 200 MG TAB PO SCH (08:00)
[2021-02-11] MEDS: PANTOPRAZOLE 40 MG TABLET PO SCH (08:00)
[2021-02-11] MEDS: ACETAMINOPHEN TAB 325 MG TAB PO PRN (08:45)
[2021-02-11 11:03] LABS: Basophils # (A) 0.01 X 10*3/uL (0.00-0.10); Basophils % (A) 0.1 %; Eosinophils # (A) 0 X 10*3/uL (0.04-0.35); Eosinophils % (A) 0 %; HCT 31.8 % (37.2-46.3); Lymphocytes % (A) 7.1 %; MCH 24.4 pg (27.0-32.0); MCHC 28.3 g/dL (32.0-37.0); MCV 86.2 fL (80.0-97.0); Mean Platelet Volume 10.2 fL (9.5-12.2); Monocytes # (A) 0.76 X 10*3/uL (0.20-1.00); Neutrophils # (A) 10.92 X 10*3/uL (1.80-7.70); Neutrophils % (A) 86.2 %; Platelet Count 267 X 10*3/uL (140-440); RBC 3.69 X 10*6/uL (4.10-5.20); RDW 15.5 % (11.5-14.5); WBC 12.67 X 10*3/uL (4.50-10.00)
--- NOTE | 2021-02-11 16:51 | P.PN ---
Subjective Patient was seen and evaluated by me this morning. She appeared dyspneic at the time of my evaluation and was just transferred back to bed and getting up to the bedside commode. Her hypoxia is at baseline and no increase in oxygen requirement. Objective - Vital Signs Vital signs: Vital Signs Temp 97.7 F 02/11/21 14:00 Pulse 91 02/11/21 14:00 Resp 22 02/11/21 14:00 BP 130/53 02/11/21 14:00 Pulse Ox 96 02/11/21 14:00 Intake & Output 02/10/21 02/11/21 02/11/21 18:59 06:59 18:59 Intake Total 840 Output Total 300 Balance 840 -300 Intake: Oral 840 Output: Urine 300 Other: # Voids 3 6 # Bowel Movements 1 - Exam General: The patient is awake and alert, in no distress Eye: there is normal conjunctiva bilaterally. Neck: The neck is supple, there is no JVD. Cardiovascular: Normal S1-S2, no S3-S4, no murmurs. Respiratory: Lungs diminished with no obvious wheezing Gastrointestinal: Abdomen is soft, nontender Musculoskeletal: There is no pedal edema. Neurological:. Speech is normal. Skin: Skin is warm and dry - Labs CBC & Chem 7: 02/11/21 06:03 02/11/21 06:03 Labs: Abnormal Lab Results - Last 24 Hours (Table) 02/11/21 02/11/21 Range/Units 06:03 06:03 WBC 12.67 H (4.50-10.00) X 10*3/uL RBC 3.69 L (4.10-5.20) X 10*6/uL Hgb 9.0 L (12.0-15.0) g/dL Hct 31.8 L (37.2-46.3) % MCH 24.4 L (27.0-32.0) pg MCHC 28.3 L (32.0-37.0) g/dL RDW 15.5 H (11.5-14.5) % Immature Gran # 0.08 H (0.00-0.04) X 10*3/uL Neutrophils # 10.92 H (1.80-7.70) X 10*3/uL Eosinophils # 0 L (0.04-0.35) X 10*3/uL Potassium 5.6 H (3.5-5.1) mmol/L Chloride 109 H (98-107) mmol/L Carbon Dioxide 31 H (22-30) mmol/L BUN 19 H (7-17) mg/dL Glucose 107 H (74-99) mg/dL Microbiology - Last 24 Hours (Table) 02/09/21 12:38 Blood Culture - Preliminary Blood No Growth after 48 hours 02/09/21 12:38 Blood Culture - Preliminary Blood No Growth after 48 hours Assessment and Plan Assessment: 1. Acute COPD exacerbation 2. Suspected community-acquired pneumonia on presentation, ruled out. Pro-calcitonin normal. Antibiotic will be discontinued. 3. Acute on chronic hypoxic respiratory failure 4. Generalized weakness/physical debility 5. Chronic atrial fibrillation on anticoagulation with Eliquis 6. Hypertension Today, I reviewed her medication list and lab work results Continue prednisone 40 mg daily to finish 5 days course Pulmonary consulted for further evaluation, appreciate recommendation Hold home dose of prednisone 5 mg daily. Resume home medications otherwise. PT/OT evaluation Plan for placement per family request. orchid worker consulted
--- NOTE | 2021-02-11 19:13 | P.PN ---
Subjective Progress Note Date: 02/11/21 Principal diagnosis: Acute exacerbation of COPD with acute on chronic hypoxic respiratory failure 85-year-old female patient with known history of COPD, on home O2, presented to hospital because of worsening shortness of breath. The patient was in the ED few days back for the same complaints of worsening shortness of breath. A CAT scan of the chest was done at that time the patient was given a diagnosis of pneumonia the patient was discharged home on Levaquin. I reviewed the CAT scan of the chest that was done on this patient back then and this was done on 02/06/[address] angiogram protocol. The CAT scan revealed severe emphysematous changes with upper lobe predominance more so in the right. There was some limited infiltration in the left lung base consistent with some questionable pneumonia and for that reason the patient was discharged home on Levaquin. The patient came back to the hospital for the same. Denies having any fever or chills. She has been becoming progressively more short of breath according to her. She has chronic atrial fibrillation. She has limited on long-term anticoagulation. Her blood work during this current admission showed a white cell count of 11.2, hemoglobin stable at 11.1, lactic acid was 2.1 at the time of admission and dropped down to 0.9, X are normal, LFTs are normal, troponins are normal, BNP level is 954, UA shows increased glucose and the COVID 19 testing was negative. A repeat chest x-ray was done in the emergency department that showed no significant abnormalities other than some hyperinflation and COPD. The echocardiogram that was done also on 09/11/2020 showed a normal ejection fraction of 55%. The patient has moderate aortic sclerosis. Reevaluated today on 02/11/21, patient continues to complain of shortness of breath, remains on oxygen, remains on multiple bronchodilators, chest x-ray showed no evidence of active disease. Patient was seen by Dr. Lucas yesterday, and placed on bronchodilators and on antibiotics. Minimal improvement if any. Patient is not quite ready to be discharged home, but probably in the next 24 hours she may improve enough to consider discharge planning Objective - Vital Signs Vital signs: Vital Signs Temp 97.7 F 02/11/21 14:00 Pulse 68 02/11/21 17:11 Resp 22 02/11/21 14:00 BP 130/53 02/11/21 14:00 Pulse Ox 96 02/11/21 14:00 Intake & Output 02/11/21 02/11/21 02/12/21 06:59 18:59 06:59 Output Total 300 Balance -300 Output: Urine 300 Other: # Voids 6 - Exam Physical Exam revealed a 65-year-old female in no distress, however noted to be dyspneic with any activity. HEENT:[Neck is supple.] [No neck masses.] [No thyromegaly.] [No JVD.] Chest: [Scattered rhonchi and wheezes noted bilaterally. Cardiac Exam: [Normal S1 and S2, no S3 gallop, no murmur.] Abdomen: [Soft, nontender, no megaly, no rebound, no guarding, normal bowel sounds.] Extremities: [No clubbing, no edema, no cyanosis.] Neurological Exam: [No focal neurologic deficit.] Psychiatric: Normal mood affect and normal mental status examination. Skin: No rashes. - Labs CBC & Chem 7: 02/11/21 06:03 02/11/21 06:03 Labs: Abnormal Lab Results - Last 24 Hours (Table) 02/11/21 02/11/21 Range/Units 06:03 06:03 WBC 12.67 H (4.50-10.00) X 10*3/uL RBC 3.69 L (4.10-5.20) X 10*6/uL Hgb 9.0 L (12.0-15.0) g/dL Hct 31.8 L (37.2-46.3) % MCH 24.4 L (27.0-32.0) pg MCHC 28.3 L (32.0-37.0) g/dL RDW 15.5 H (11.5-14.5) % Immature Gran # 0.08 H (0.00-0.04) X 10*3/uL Neutrophils # 10.92 H (1.80-7.70) X 10*3/uL Eosinophils # 0 L (0.04-0.35) X 10*3/uL Potassium 5.6 H (3.5-5.1) mmol/L Chloride 109 H (98-107) mmol/L Carbon Dioxide 31 H (22-30) mmol/L BUN 19 H (7-17) mg/dL Glucose 107 H (74-99) mg/dL Microbiology - Last 24 Hours (Table) 02/09/21 12:38 Blood Culture - Preliminary Blood No Growth after 48 hours 02/09/21 12:38 Blood Culture - Preliminary Blood No Growth after 48 hours Assessment and Plan Assessment: Impression: Acute exacerbation of COPD Acute on chronic hypoxic respiratory failure secondary to above Chronic dyspnea secondary to severe COPD Chronic atrial fibrillation. History of CVA. Benign essential hypertension. History of pacemaker insertion for sinus pauses Recommendation: Continue bronchodilators/pneumonia. Continue IV Solu-Medrol. Consider discharge planning in the next 24-48 hours. Home O2, Rehabilitation is strongly recommended. 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 Time with Patient: Less than 30
[2021-02-11] MEDS: HYDROcodone/APAP 5-325MG 1 EACH TAB PO SCH (20:42)
[2021-02-11] MEDS: ATORVASTATIN 10 MG TAB PO SCH (20:42)
[2021-02-11] MEDS: DONEPEZIL 5 MG TAB PO SCH (20:42)
[2021-02-12] MEDS: IPRATROPIUM-ALBUTEROL 3 ML NEB INHALATION PRN ×2 (01:03→04:50)
[2021-02-12] MEDS: IPRATROPIUM-ALBUTEROL 3 ML NEB INHALATION SCH ×4 (07:20→19:38)
[2021-02-12] MEDS: SYMBICORT 80-4.5 MCG INHALER INHALATION SCH ×2 (07:20→19:45)
[2021-02-12] MEDS: PANTOPRAZOLE 40 MG TABLET PO SCH (08:41)
[2021-02-12] MEDS: APIXABAN 2.5 MG TABLET PO SCH ×2 (08:41→22:24)
[2021-02-12] MEDS: predniSONE 20 MG TAB PO SCH (08:42)
[2021-02-12] MEDS: lisinopriL 20 MG TAB PO SCH ×2 (08:43→22:25)
[2021-02-12] MEDS: AMIODARONE 200 MG TAB PO SCH (08:43)
[2021-02-12] MEDS: METOPROLOL TARTRATE 50 MG TAB PO SCH ×2 (08:43→22:25)
--- NOTE | 2021-02-12 10:39 | P.PN ---
Subjective Progress Note Date: 02/12/21 On 02/12/2021 patient seen in follow-up medical surgical floor. Currently on 4 L of oxygen pulse ox is 95%. No worsening dyspnea, she is breathing quite comfortably, lung sounds are diminished, no wheezing, no crackles, this had no fever or chills, vital signs have been stable, she has been up in the chair, she does get short of breath with activity. Recovered. Procalcitonin Level was negative at 0.08, today's labs have been reviewed. Today's labs revealed white blood cell count of 12.6, hemoglobin of 9, sodium is 142, potassium is 5.6, chloride is 109, CO2 31, BUN is 19, creatinine 0.6, urinalysis showed 1+ protein, 4+ glucose rare bacteria, no definite sign of infection. Patient has been transitioned to oral prednisone 40 mg, she is on nebulized bronchodilators, and Symbicort. She is on Eliquis and amiodarone for history of atrial fibrillation. Complaints of chest discomfort, no hemoptysis. Chest x-ray on admission showed no acute cardiopulmonary process. Objective - Vital Signs Vital signs: Vital Signs Temp 98.3 F 02/12/21 07:40 Pulse 96 02/12/21 07:40 Resp 18 02/12/21 07:40 BP 123/64 02/12/21 07:40 Pulse Ox 97 02/12/21 07:40 Intake & Output 02/11/21 02/12/21 02/12/21 18:59 06:59 18:59 Intake Total 300 200 Balance 300 200 Intake: Oral 300 200 Other: Voiding Method Bedside Commode Bedpan # Voids 6 2 - Exam GENERAL EXAM: Alert, very pleasant, 85-year-old white female, resting comfortably in bed, on 4 L of oxygen pulse ox of 95% comfortable in no apparent distress. HEAD: Normocephalic/atraumatic. EYES: Normal reaction of pupils, equal size. Conjunctiva pink, sclera white. NOSE: Clear with pink turbinates. THROAT: No erythema or exudates. NECK: No masses, no JVD, no thyroid enlargement, no adenopathy. CHEST: No chest wall deformity. Symmetrical expansion. LUNGS: Equal air entry with no crackles, wheeze, rhonchi or dullness. CVS: Regular rate and rhythm, normal S1 and S2, no gallops, no murmurs, no rubs ABDOMEN: Soft, nontender. No hepatosplenomegaly, normal bowel sounds, no guarding or rigidity. EXTREMITIES: No clubbing, no edema, no cyanosis, 2+ pulses and upper and lower extremities. MUSCULOSKELETAL: Muscle strength and tone normal. SPINE: No scoliosis or deformity SKIN: No rashes CENTRAL NERVOUS SYSTEM: Alert and oriented -3. No focal deficits, tone is normal in all 4 extremities. PSYCHIATRIC: Alert and oriented -3. Appropriate affect. Intact judgment and insight. - Labs CBC & Chem 7: 02/11/21 06:03 02/11/21 06:03 Labs: Abnormal Lab Results - Last 24 Hours (Table) 02/11/21 Range/Units 06:03 WBC 12.67 H (4.50-10.00) X 10*3/uL RBC 3.69 L (4.10-5.20) X 10*6/uL Hgb 9.0 L (12.0-15.0) g/dL Hct 31.8 L (37.2-46.3) % MCH 24.4 L (27.0-32.0) pg MCHC 28.3 L (32.0-37.0) g/dL RDW 15.5 H (11.5-14.5) % Immature Gran # 0.08 H (0.00-0.04) X 10*3/uL Neutrophils # 10.92 H (1.80-7.70) X 10*3/uL Eosinophils # 0 L (0.04-0.35) X 10*3/uL Microbiology - Last 24 Hours (Table) 02/09/21 12:38 Blood Culture - Preliminary Blood No Growth after 48 hours 02/09/21 12:38 Blood Culture - Preliminary Blood No Growth after 48 hours Assessment and Plan Plan: Assessment: #1. Acute exacerbation of COPD, chest x-ray showing no acute cardiopulmonary process. There was a minor nonspecific patchy left lower lobe infiltrate on the previous CT of the chest dated 02/06/2021 and subsequent chest x-ray was clear #2. Advanced oxygen dependent COPD, on Trelegy Ellipta on an outpatient basis #3. Chronic dyspnea and marked limitation in exercise capacity secondary to COPD #4. 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 Chronic atrial fibrillation on Eliquis #6. Previous history of CVA #7. Hypertension #8. History of GERD/reflux #9. Previous history of falls #10. Pacemaker insertion for history of sinus pauses and syncopal episodes Plan: Clinically from pulmonary perspective the patient has improved, No wheezing, no rhonchi on today's exam She has been transitioned to oral prednisone No acute events overnight Weaning oxygen down to home O2 level Increase activity as tolerated Will likely need rehab placement after discharge From pulmonary perspective she stable for discharge to rehab today Outpatient follow-up with Dr. Lucas in the office in 7-10 days I performed a history & physical examination of the patient and discussed their management with my nurse practitioner, Louann Gambino. I reviewed the nurse practitioner's note and agree with the documented findings and plan of care. Lung sounds are positive for clear breath sounds throughout the lung mccall. The findings and the impression was discussed with the patient. I attest to the documentation by the nurse practitioner. Time with Patient: Less than 30
[2021-02-12] MEDS: methylPREDNISolone SOD SUCCI 125 MG/2 ML VIAL IV SCH ×2 (12:07→17:18)
--- NOTE | 2021-02-12 18:56 | P.PN ---
Subjective Patient is still complaining of shortness of breath even at rest. There is no increase of her oxygen requirement. Objective - Vital Signs Vital signs: Vital Signs Temp 98.1 F 02/12/21 14:00 Pulse 80 02/12/21 17:04 Resp 18 02/12/21 17:04 BP 165/63 02/12/21 14:00 Pulse Ox 94 L 02/12/21 14:00 Intake & Output 02/11/21 02/12/21 02/12/21 18:59 06:59 18:59 Intake Total 300 600 Balance 300 600 Intake: Oral 300 600 Other: Voiding Method Bedside Commode Bedpan # Voids 6 2 1 - Exam General: The patient is awake and alert, in no distress Eye: there is normal conjunctiva bilaterally. Neck: The neck is supple, there is no JVD. Cardiovascular: Normal S1-S2, no S3-S4, no murmurs. Respiratory: Lungs diminished with no obvious wheezing Gastrointestinal: Abdomen is soft, nontender Musculoskeletal: There is no pedal edema. Neurological:. Speech is normal. Skin: Skin is warm and dry - Labs CBC & Chem 7: 02/11/21 06:03 02/11/21 06:03 Labs: Microbiology - Last 24 Hours (Table) 02/09/21 12:38 Blood Culture - Preliminary Blood No Growth after 72 hours 02/09/21 12:38 Blood Culture - Preliminary Blood No Growth after 72 hours Assessment and Plan Assessment: 1. Acute COPD exacerbation 2. Suspected community-acquired pneumonia on presentation, ruled out. Pro- calcitonin normal. Antibiotic will be discontinued. 3. Acute on chronic hypoxic respiratory failure 4. Generalized weakness/physical debility 5. Chronic atrial fibrillation on anticoagulation with Eliquis 6. Hypertension Today, I reviewed her medication list and lab work results Steroid switched back to IV Solu-Medrol giving worsening clinical status and progressing dyspnea Pulmonary consulted for further evaluation, appreciate recommendation Hold home dose of prednisone 5 mg daily. Resume home medications otherwise. PT/OT evaluation Plan for placement per family request. animal care service worker consulted
[2021-02-12] MEDS: ATORVASTATIN 10 MG TAB PO SCH (22:24)
[2021-02-12] MEDS: HYDROcodone/APAP 5-325MG 1 EACH TAB PO SCH (22:25)
[2021-02-12] MEDS: DONEPEZIL 5 MG TAB PO SCH (22:25)
[2021-02-13] MEDS: methylPREDNISolone SOD SUCCI 125 MG/2 ML VIAL IV SCH ×4 (01:29→17:47)
[2021-02-13] MEDS: lisinopriL 20 MG TAB PO SCH ×2 (07:47→20:52)
[2021-02-13] MEDS: PANTOPRAZOLE 40 MG TABLET PO SCH (07:47)
[2021-02-13] MEDS: APIXABAN 2.5 MG TABLET PO SCH ×2 (07:47→20:52)
[2021-02-13] MEDS: AMIODARONE 200 MG TAB PO SCH (07:47)
[2021-02-13] MEDS: METOPROLOL TARTRATE 50 MG TAB PO SCH ×2 (07:47→20:52)
[2021-02-13] MEDS: IPRATROPIUM-ALBUTEROL 3 ML NEB INHALATION SCH ×4 (08:42→18:59)
[2021-02-13] MEDS: SYMBICORT 80-4.5 MCG INHALER INHALATION SCH ×2 (08:43→18:59)
[2021-02-13 09:21] LABS: Basophils % (A) 0 %; Eosinophils % (A) 0 %; HGB 10.7 gm/dL (11.4-16.0); Hypochromasia Marked; Lymphocytes # (A) 0.4 k/uL (1.0-4.8); Lymphocytes % (A) 5 %; MCH 24.9 pg (25.0-35.0); MCHC 29.6 g/dL (31.0-37.0); Mean Platelet Volume 7.1; Monocytes # (A) 0.2 k/uL (0-1.0); Monocytes % (A) 2 %; Neutrophils # (A) 7.8 k/uL (1.3-7.7); Neutrophils % (A) 93 %; Platelet Count 294 k/uL (150-450); RBC 4.29 m/uL (3.80-5.40); RDW 14.8 % (11.5-15.5); WBC 8.4 k/uL (3.8-10.6)
[2021-02-13 09:33] LABS: African American GFR (CKD) >90 (>60 ml/min/1.73 sqM); Anion Gap 8 mmol/L; Blood Urea Nitrogen 15 mg/dL (7-17); Calcium 9.1 mg/dL (8.4-10.2); Carbon Dioxide 30 mmol/L (22-30); Chloride 98 mmol/L (98-107); Glucose 242 mg/dL (74-99); Non-African American GFR(CKD) 83 (>60 ml/min/1.73 sqM); Potassium 3.7 mmol/L (3.5-5.1); Sodium 136 mmol/L (137-145)
[2021-02-13] MEDS ORDERED: FUROSEMIDE 10 MG/ML 4 ML VIAL IV STA (10:47)
--- NOTE | 2021-02-13 10:52 | P.PN ---
Subjective Progress Note Date: 02/13/21 On 02/12/2021 patient seen in follow-up medical surgical floor. Currently on 4 L of oxygen pulse ox is 95%. No worsening dyspnea, she is breathing quite comfortably, lung sounds are diminished, no wheezing, no crackles, this had no fever or chills, vital signs have been stable, she has been up in the chair, she does get short of breath with activity. Recovered. Procalcitonin Level was negative at 0.08, today's labs have been reviewed. Today's labs revealed white blood cell count of 12.6, hemoglobin of 9, sodium is 142, potassium is 5.6, chloride is 109, CO2 31, BUN is 19, creatinine 0.6, urinalysis showed 1+ protein, 4+ glucose rare bacteria, no definite sign of infection. Patient has been transitioned to oral prednisone 40 mg, she is on nebulized bronchodilators, and Symbicort. She is on Eliquis and amiodarone for history of atrial fibrillation. Complaints of chest discomfort, no hemoptysis. Chest x-ray on admission showed no acute cardiopulmonary process. On 02/13/2021 patient seen in follow-up on medical surgical floor. She is short of breath conversation, and short of breath with any exertion, she has been having difficult time getting up to the bathroom related to exertional dyspnea, she is currently on 3 L of oxygen the pulse ox of 98%, no cough, no phlegm production, no chest pain, lung sounds are diminished with rales at the left base. Her IV fluids are infusing at a rate of 20 ML per hour. He remains on IV steroids and nebulized bronchodilators. She's had no fever or chills. blood culture has shown no growth. Today's labs have been reviewed, white blood cell count is improving and is down to 8.4, hemoglobin is 10.7, sodium is 136, the rest of electrolytes and renal profile were unremarkable. Objective - Vital Signs Vital signs: Vital Signs Temp 97.9 F 02/13/21 08:00 Pulse 73 02/13/21 08:58 Resp 16 02/13/21 08:00 BP 160/89 02/13/21 08:00 Pulse Ox 98 02/13/21 08:00 Intake & Output 02/12/21 02/13/21 02/13/21 18:59 06:59 18:59 Intake Total 600 236 Output Total 500 Balance 600 -500 236 Intake: Oral 600 236 Output: Urine 500 Other: Voiding Method Bedside Commode Bedside Commode External Catheter Bedpan Bedpan # Voids 1 3 # Bowel Movements 0 - Exam GENERAL EXAM: Alert, very pleasant, 85-year-old white female, on 3 L of oxygen, dyspneic with conversation HEAD: Normocephalic/atraumatic. EYES: Normal reaction of pupils, equal size. Conjunctiva pink, sclera white. NOSE: Clear with pink turbinates. THROAT: No erythema or exudates. NECK: No masses, no JVD, no thyroid enlargement, no adenopathy. CHEST: No chest wall deformity. Symmetrical expansion. LUNGS: Equal air entry with bibasilar crackles left greater than right CVS: Regular rate and rhythm, normal S1 and S2, no gallops, no murmurs, no rubs ABDOMEN: Soft, nontender. No hepatosplenomegaly, normal bowel sounds, no guarding or rigidity. EXTREMITIES: No clubbing, mild pretibial edema, no cyanosis, 2+ pulses and upper and lower extremities. MUSCULOSKELETAL: Muscle strength and tone normal. SPINE: No scoliosis or deformity SKIN: No rashes CENTRAL NERVOUS SYSTEM: Alert and oriented -3. No focal deficits, tone is normal in all 4 extremities. PSYCHIATRIC: Alert and oriented -3. Appropriate affect. Intact judgment and insight. - Labs CBC & Chem 7: 02/13/21 09:11 02/13/21 09:11 Labs: Abnormal Lab Results - Last 24 Hours (Table) 02/13/21 02/13/21 Range/Units 09:11 09:11 Hgb 10.7 L (11.4-16.0) gm/dL MCH 24.9 L (25.0-35.0) pg MCHC 29.6 L (31.0-37.0) g/dL Neutrophils # 7.8 H (1.3-7.7) k/uL Lymphocytes # 0.4 L (1.0-4.8) k/uL Sodium 136 L (137-145) mmol/L Glucose 242 H (74-99) mg/dL Microbiology - Last 24 Hours (Table) 02/09/21 12:38 Blood Culture - Preliminary Blood No Growth after 72 hours 02/09/21 12:38 Blood Culture - Preliminary Blood No Growth after 72 hours Assessment and Plan Plan: Assessment: #1. Acute exacerbation of COPD, chest x-ray showing no acute cardiopulmonary process. There was a minor nonspecific patchy left lower lobe infiltrate on the previous CT of the chest dated 02/06/2021 and subsequent chest x-ray was clear #2. Advanced oxygen dependent COPD, on Trelegy Ellipta on an outpatient basis #3. Chronic dyspnea and marked limitation in exercise capacity secondary to COPD #4. 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 Chronic atrial fibrillation on Eliquis #6. Previous history of CVA #7. Hypertension #8. History of GERD/reflux #9. Previous history of falls #10. Pacemaker insertion for history of sinus pauses and syncopal episodes Plan: Patient appears to be more dyspneic on today's exam, with positive rales at the left base We'll obtain a chest x-ray We'll give the patient 1 dose of Lasix 40 mg Continue steroids and nebulized bronchodilators Continue oral anticoagulation I performed a history & physical examination of the patient and discussed their management with my nurse practitioner, Louann Gambino. I reviewed the nurse practitioner's note and agree with the documented findings and plan of care. Lung sounds are positive for clear breath sounds throughout the lung mccall. The findings and the impression was discussed with the patient. I attest to the documentation by the nurse practitioner. Time with Patient: Less than 30
--- NOTE | 2021-02-13 10:53 | XR ---
EXAMINATION TYPE: XR chest 1V portable DATE OF EXAM: 02/13/2021 Comparison: 02/09/2021 Clinical History: 85 year-old female shortness of breath, dyspnea Findings: Left anterior chest wall pacemaker generator with right atrial and right ventricular leads. Heart upp er limits of normal in size. Hyperinflation. Mild interstitial prominence. Right apical pleural-paren chymal scarring is unchanged. Otherwise, no consolidation or pleural effusion. Degenerative change le ft shoulder. Impression: COPD with similar right apical pleural-parenchymal scarring and chronic interstitial changes. No defi nite acute process.
--- NOTE | 2021-02-13 12:07 | P.PN ---
Subjective Patient's overall condition is not improving. She remained dyspneic with minimal exertion and even at rest. No increase in oxygen requirement. Chest x- ray this morning with no acute findings. Objective - Vital Signs Vital signs: Vital Signs Temp 97.9 F 02/13/21 08:00 Pulse 78 02/13/21 11:50 Resp 16 02/13/21 08:00 BP 160/89 02/13/21 08:00 Pulse Ox 98 02/13/21 08:00 Intake & Output 02/12/21 02/13/21 02/13/21 18:59 06:59 18:59 Intake Total 600 236 Output Total 500 Balance 600 -500 236 Intake: Oral 600 236 Output: Urine 500 Other: Voiding Method Bedside Commode Bedside Commode External Catheter Bedpan Bedpan # Voids 1 3 # Bowel Movements 0 - Exam General: The patient is awake and alert, in no distress Eye: there is normal conjunctiva bilaterally. Neck: The neck is supple, there is no JVD. Cardiovascular: Normal S1-S2, no S3-S4, no murmurs. Respiratory: Lungs diminished with no obvious wheezing Gastrointestinal: Abdomen is soft, nontender Musculoskeletal: There is no pedal edema. Neurological:. Speech is normal. Skin: Skin is warm and dry - Labs CBC & Chem 7: 02/13/21 09:11 02/13/21 09:11 Labs: Abnormal Lab Results - Last 24 Hours (Table) 02/13/21 02/13/21 Range/Units 09:11 09:11 Hgb 10.7 L (11.4-16.0) gm/dL MCH 24.9 L (25.0-35.0) pg MCHC 29.6 L (31.0-37.0) g/dL Neutrophils # 7.8 H (1.3-7.7) k/uL Lymphocytes # 0.4 L (1.0-4.8) k/uL Sodium 136 L (137-145) mmol/L Glucose 242 H (74-99) mg/dL Microbiology - Last 24 Hours (Table) 02/09/21 12:38 Blood Culture - Preliminary Blood No Growth after 72 hours 02/09/21 12:38 Blood Culture - Preliminary Blood No Growth after 72 hours Assessment and Plan Assessment: 1. Acute COPD exacerbation 2. Suspected community-acquired pneumonia on presentation, ruled out. Pro- calcitonin normal. Antibiotic discontinued. 3. Acute on chronic hypoxic respiratory failure 4. Generalized weakness/physical debility 5. Chronic atrial fibrillation on anticoagulation with Eliquis 6. Hypertension Today, I reviewed her medication list and lab work results Continue IV Solu-Medrol and bronchodilators as directed by pulmonary Patient had a negative COVID-19 screen Pulmonary consulted for further evaluation, appreciate recommendation PT/OT evaluation, plan for custodial facility for subacute rehab when medically improving
[2021-02-13] MEDS: ATORVASTATIN 10 MG TAB PO SCH (20:51)
[2021-02-13] MEDS: HYDROcodone/APAP 5-325MG 1 EACH TAB PO SCH (20:52)
[2021-02-13] MEDS: DONEPEZIL 5 MG TAB PO SCH (20:52)
[2021-02-14] MEDS: methylPREDNISolone SOD SUCCI 125 MG/2 ML VIAL IV SCH ×4 (00:07→17:32)
[2021-02-14] MEDS: SYMBICORT 80-4.5 MCG INHALER INHALATION SCH ×2 (07:48→19:42)
[2021-02-14] MEDS: IPRATROPIUM-ALBUTEROL 3 ML NEB INHALATION SCH ×4 (07:48→19:42)
[2021-02-14] MEDS: PANTOPRAZOLE 40 MG TABLET PO SCH (08:08)
[2021-02-14] MEDS: AMIODARONE 200 MG TAB PO SCH (08:08)
[2021-02-14] MEDS: lisinopriL 20 MG TAB PO SCH ×2 (08:08→21:08)
[2021-02-14] MEDS: ACETAMINOPHEN TAB 325 MG TAB PO PRN (08:08)
[2021-02-14] MEDS: APIXABAN 2.5 MG TABLET PO SCH ×2 (08:08→21:07)
[2021-02-14] MEDS: METOPROLOL TARTRATE 50 MG TAB PO SCH ×2 (08:08→21:06)
[2021-02-14] MEDS ORDERED: FUROSEMIDE 10 MG/ML 4 ML VIAL IV STA (08:18)
--- NOTE | 2021-02-14 11:13 | P.PN ---
Subjective Patient was getting up with physical therapy today when I saw her. She is very weak and requiring 1 person assist plus a walker. She became very dyspneic after walking 3 steps toward the chair. Objective - Vital Signs Vital signs: Vital Signs Temp 97.7 F 02/14/21 08:00 Pulse 96 02/14/21 08:04 Resp 16 02/14/21 08:00 BP 129/74 02/14/21 08:00 Pulse Ox 99 02/14/21 08:00 Intake & Output 02/13/21 02/14/21 02/14/21 18:59 06:59 18:59 Intake Total 708 236 Output Total 1350 Balance 708 -1350 236 Intake: Oral 708 236 Output: Urine 1350 Other: Voiding Method External Catheter External Catheter # Voids 1 # Bowel Movements 1 1 - Exam General: The patient is awake and alert, in no distress Eye: there is normal conjunctiva bilaterally. Neck: The neck is supple, there is no JVD. Cardiovascular: Normal S1-S2, no S3-S4, no murmurs. Respiratory: Lungs diminished with no obvious wheezing Gastrointestinal: Abdomen is soft, nontender Musculoskeletal: There is no pedal edema. Neurological:. Speech is normal. Skin: Skin is warm and dry - Labs CBC & Chem 7: 02/13/21 09:11 02/13/21 09:11 Labs: Microbiology - Last 24 Hours (Table) 02/09/21 12:38 Blood Culture - Preliminary Blood No Growth after 96 hours 02/09/21 12:38 Blood Culture - Preliminary Blood No Growth after 96 hours Assessment and Plan Assessment: 1. Acute COPD exacerbation 2. Suspected community-acquired pneumonia on presentation, ruled out. Pro- calcitonin normal. Antibiotic discontinued. 3. Acute on chronic hypoxic respiratory failure 4. Generalized weakness/physical debility 5. Chronic atrial fibrillation on anticoagulation with Eliquis 6. Hypertension Today, I reviewed her medication list and lab work results Continue IV Solu-Medrol and bronchodilators as directed by pulmonary Patient had a negative COVID-19 screen Pulmonary consulted for further evaluation, appreciate recommendation PT/OT evaluation, plan for long term facility for subacute rehab when medically improving possibly tomorrow
--- NOTE | 2021-02-14 11:42 | P.PN ---
Subjective Progress Note Date: 02/14/21 On 02/12/2021 patient seen in follow-up medical surgical floor. Currently on 4 L of oxygen pulse ox is 95%. No worsening dyspnea, she is breathing quite comfortably, lung sounds are diminished, no wheezing, no crackles, this had no fever or chills, vital signs have been stable, she has been up in the chair, she does get short of breath with activity. Recovered. Procalcitonin Level was negative at 0.08, today's labs have been reviewed. Today's labs revealed white blood cell count of 12.6, hemoglobin of 9, sodium is 142, potassium is 5.6, chloride is 109, CO2 31, BUN is 19, creatinine 0.6, urinalysis showed 1+ protein, 4+ glucose rare bacteria, no definite sign of infection. Patient has been transitioned to oral prednisone 40 mg, she is on nebulized bronchodilators, and Symbicort. She is on Eliquis and amiodarone for history of atrial fibrillation. Complaints of chest discomfort, no hemoptysis. Chest x-ray on admission showed no acute cardiopulmonary process. On 02/13/2021 patient seen in follow-up on medical surgical floor. She is short of breath conversation, and short of breath with any exertion, she has been having difficult time getting up to the bathroom related to exertional dyspnea, she is currently on 3 L of oxygen the pulse ox of 98%, no cough, no phlegm production, no chest pain, lung sounds are diminished with rales at the left base. Her IV fluids are infusing at a rate of 20 ML per hour. He remains on IV steroids and nebulized bronchodilators. She's had no fever or chills. blood culture has shown no growth. Today's labs have been reviewed, white blood cell count is improving and is down to 8.4, hemoglobin is 10.7, sodium is 136, the rest of electrolytes and renal profile were unremarkable. On 02/14/2021 patient seen in follow-up on medical surgical floor. She sounds a bit better on today's exam, mild crackles at the bases, yesterday we gave her a dose of IV Lasix, she is a little less dyspneic, breathing comfortably this morning, she is on 2 L of oxygen pulse ox is 94%. She continues on IV steroids at 60 mg every 6 hours, no wheezing noted on today's exam, she is on inhaled bronchodilators. She's had no acute events overnight. Today's labs are still pending. She is diuresing, and she is in -642 mL over the last 24 hours. Objective - Vital Signs Vital signs: Vital Signs Temp 97.7 F 02/14/21 08:00 Pulse 100 02/14/21 11:29 Resp 16 02/14/21 08:00 BP 129/74 02/14/21 08:00 Pulse Ox 99 02/14/21 08:00 Intake & Output 02/13/21 02/14/21 02/14/21 18:59 06:59 18:59 Intake Total 708 236 Output Total 1350 Balance 708 -1350 236 Intake: Oral 708 236 Output: Urine 1350 Other: Voiding Method External Catheter External Catheter # Voids 1 # Bowel Movements 1 1 - Exam GENERAL EXAM: Alert, very pleasant, 85-year-old white female, on 2 L of oxygen with pulse ox of 94% dyspneic with conversation HEAD: Normocephalic/atraumatic. EYES: Normal reaction of pupils, equal size. Conjunctiva pink, sclera white. NOSE: Clear with pink turbinates. THROAT: No erythema or exudates. NECK: No masses, no JVD, no thyroid enlargement, no adenopathy. CHEST: No chest wall deformity. Symmetrical expansion. LUNGS: Equal air entry with bibasilar crackles left greater than right CVS: Regular rate and rhythm, normal S1 and S2, no gallops, no murmurs, no rubs ABDOMEN: Soft, nontender. No hepatosplenomegaly, normal bowel sounds, no guarding or rigidity. EXTREMITIES: No clubbing, mild pretibial edema, no cyanosis, 2+ pulses and upper and lower extremities. MUSCULOSKELETAL: Muscle strength and tone normal. SPINE: No scoliosis or deformity SKIN: No rashes CENTRAL NERVOUS SYSTEM: Alert and oriented -3. No focal deficits, tone is normal in all 4 extremities. PSYCHIATRIC: Alert and oriented -3. Appropriate affect. Intact judgment and insight. - Labs CBC & Chem 7: 02/13/21 09:11 02/13/21 09:11 Labs: Microbiology - Last 24 Hours (Table) 02/09/21 12:38 Blood Culture - Preliminary Blood No Growth after 96 hours 02/09/21 12:38 Blood Culture - Preliminary Blood No Growth after 96 hours Assessment and Plan Plan: Assessment: #1. Acute exacerbation of COPD, chest x-ray showing no acute cardiopulmonary process. There was a minor nonspecific patchy left lower lobe infiltrate on the previous CT of the chest dated 02/06/2021 and subsequent chest x-ray was clear #2. Advanced oxygen dependent COPD, on Trelegy Ellipta on an outpatient basis #3. Chronic dyspnea and marked limitation in exercise capacity secondary to COPD #4. 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 Chronic atrial fibrillation on Eliquis #6. Previous history of CVA #7. Hypertension #8. History of GERD/reflux #9. Previous history of falls #10. Pacemaker insertion for history of sinus pauses and syncopal episodes Plan: Continue current medical treatment Patient is breathing easier today She is in negative fluid balance She continues on IV steroids and bronchodilators We'll give the patient another dose of Lasix today Follow-up chest x-ray in the morning with follow-up labs I performed a history & physical examination of the patient and discussed their management with my nurse practitioner, Louann Gambino. I reviewed the nurse practitioner's note and agree with the documented findings and plan of care. Lung sounds are positive for clear breath sounds throughout the lung mccall. The findings and the impression was discussed with the patient. I attest to the documentation by the nurse practitioner. Time with Patient: Less than 30
[2021-02-14 14:36] VITALS: BMI 19.5
[2021-02-14] MEDS: DONEPEZIL 5 MG TAB PO SCH (21:07)
[2021-02-14] MEDS: HYDROcodone/APAP 5-325MG 1 EACH TAB PO SCH (21:07)
[2021-02-14] MEDS: ATORVASTATIN 10 MG TAB PO SCH (21:08)
[2021-02-15] MEDS: methylPREDNISolone SOD SUCCI 125 MG/2 ML VIAL IV SCH ×3 (00:04→11:46)
[2021-02-15 02:26] VITALS: TEMP 97.9
[2021-02-15] MEDS: IPRATROPIUM-ALBUTEROL 3 ML NEB INHALATION SCH ×2 (07:24→11:04)
[2021-02-15] MEDS: SYMBICORT 80-4.5 MCG INHALER INHALATION SCH (07:24)
--- NOTE | 2021-02-15 07:34 | XR ---
EXAMINATION TYPE: XR chest 1V portable DATE OF EXAM: 02/15/2021 Comparison: 02/13/2021 Clinical History: 85-year-old female shortness of breath Findings: Left anterior chest wall pacemaker generator with right atrial and right ventricular leads. Heart pastor its of normal in size. Hyperinflation with right apical pleural parenchymal scarring redemonstrated. Mild interstitial prominence is unchanged. No consolidation or pleural effusion seen. Old healed impa cted fracture deformity of the surgical neck of the proximal left humerus. Impression: COPD with similar right apical pleural parenchymal scarring and chronic interstitial changes. No acut e change.
[2021-02-15 08:07] VITALS: BP 144/71; RESP 28
[2021-02-15 09:14] LABS: Basophils # (A) 0.02 X 10*3/uL (0.00-0.10); Basophils % (A) 0.2 %; Eosinophils # (A) 0 X 10*3/uL (0.04-0.35); Eosinophils % (A) 0 %; HCT 37.2 % (37.2-46.3); HGB 10.5 g/dL (12.0-15.0); Lymphocytes # (A) 0.47 X 10*3/uL (0.90-5.00); Lymphocytes % (A) 3.9 %; MCH 23.6 pg (27.0-32.0); MCHC 28.2 g/dL (32.0-37.0); MCV 83.8 fL (80.0-97.0); Mean Platelet Volume 9.8 fL (9.5-12.2); Monocytes # (A) 0.43 X 10*3/uL (0.20-1.00); Monocytes % (A) 3.6 %; Neutrophils # (A) 10.97 X 10*3/uL (1.80-7.70); Neutrophils % (A) 91.5 %; Platelet Count 343 X 10*3/uL (140-440); RBC 4.44 X 10*6/uL (4.10-5.20); RDW 15.5 % (11.5-14.5); WBC 11.99 X 10*3/uL (4.50-10.00)
[2021-02-15] MEDS: lisinopriL 20 MG TAB PO SCH (09:36)
[2021-02-15] MEDS: ACETAMINOPHEN TAB 325 MG TAB PO PRN (09:36)
[2021-02-15] MEDS: PANTOPRAZOLE 40 MG TABLET PO SCH (09:37)
[2021-02-15] MEDS: AMIODARONE 200 MG TAB PO SCH (09:37)
[2021-02-15] MEDS: METOPROLOL TARTRATE 50 MG TAB PO SCH (09:37)
[2021-02-15] MEDS: APIXABAN 2.5 MG TABLET PO SCH (09:37)
--- NOTE | 2021-02-15 10:08 | P.DS ---
Providers Date of admission: 02/09/21 14:41 Expected date of discharge: 02/15/21 Attending physician: Jelena Randhawa DO Consults: 02/09/21 14:50 Consult Physician Routine Consulting Provider: Nehemiah Lucas Consult Reason/Comments: COPD Do you want consulting provider notified?: Yes Primary care physician: Norris Hermosillo MD Hospital Course: This is a 85-year-old female with past medical history noted below significant for underlying COPD on home O2 that presented to the emergency room with progressive weakness and shortness of breath. Patient was evaluated in the ER and admitted to the hospital for further management of her medical problems noted below. 1. Acute COPD exacerbation 2. Suspected community-acquired pneumonia on presentation, ruled out. Pro-michael citonin normal. Antibiotic discontinued. 3. Acute on chronic hypoxic respiratory failure 4. Generalized weakness/physical debility 5. Chronic atrial fibrillation on anticoagulation with Eliquis 6. Hypertension Patient was treated aggressively with bronchodilators and IV steroids. She was seen and evaluated by pulmonary. Her overall condition improved but patient remained dyspneic secondary to severe underlying COPD. Patient would be discharged on a slow taper course prednisone and eventually would resume her home dose of prednisone 5 mg daily. She was seen and evaluated by PT/OT. Plan to discharge to [facility] facility for subacute rehab. Physical exam: General: The patient is awake and alert, in no distress Eye: there is normal conjunctiva bilaterally. Neck: The neck is supple, there is no JVD. Cardiovascular: Normal S1-S2, no S3-S4, no murmurs. Respiratory: Lungs are diminished with no wheezing Gastrointestinal: Abdomen is soft, nontender Musculoskeletal: There is no pedal edema. Neurological:. Speech is normal. Skin: Skin is warm and dry Patient Condition at Discharge: Stable Plan - Discharge Summary New Discharge Prescriptions: New predniSONE 0 mg PO DIRECTED #30 tab Continue Simvastatin [Zocor] 10 mg PO HS Fluticasone/Umeclidin/Vilanter [Trelegy Ellipta 100-62.5-25] 1 puff INHALATION RT-DAILY Amiodarone [Cordarone] 200 mg PO DAILY Omeprazole 20 mg PO DAILY Ipratropium-Albuterol Nebulize [Duoneb 0.5 mg-3 mg/3 ml Soln] 3 ml INHALATION RT-QID Apixaban [Eliquis] 2.5 mg PO BID Fexofenadine HCl [Toyin Allergy] 180 mg PO DAILY Metoprolol Tartrate [Lopressor] 50 mg PO BID #180 tab lisinopriL [Zestril] 20 mg PO BID Donepezil HCl [Aricept] 5 mg PO HS HYDROcodone/APAP 5-325MG [Protem 5-325] 1 tab PO HS #3 tab Discontinued predniSONE 5 mg PO DAILY Levofloxacin [Levaquin] 750 mg PO DAILY 4 Days #4 tab Discharge Medication List Apixaban [Eliquis] 2.5 mg PO BID 09/08/20 [History] Fluticasone/Umeclidin/Vilanter [Trelegy Ellipta 100-62.5-25] 1 puff INHALATION RT-DAILY 09/08/20 [History] Ipratropium-Albuterol Nebulize [Duoneb 0.5 mg-3 mg/3 ml Soln] 3 ml INHALATION RT-QID 09/08/20 [History] Omeprazole 20 mg PO DAILY 09/08/20 [History] Simvastatin [Zocor] 10 mg PO HS 09/08/20 [History] Fexofenadine HCl [Toyin Allergy] 180 mg PO DAILY 09/19/20 [History] Metoprolol Tartrate [Lopressor] 50 mg PO BID #180 tab 09/25/20 [Rx] Amiodarone [Cordarone] 200 mg PO DAILY 02/06/21 [History] Donepezil HCl [Aricept] 5 mg PO HS 02/06/21 [History] lisinopriL [Zestril] 20 mg PO BID 02/06/21 [History] HYDROcodone/APAP 5-325MG [Protem 5-325] 1 tab PO HS #3 tab 02/15/21 [Rx] predniSONE 0 mg PO DIRECTED #30 tab 02/15/21 [Rx] Follow up Appointment(s)/Referral(s): Norris Hermosillo MD [Primary Care Provider] - 1-2 days Nehemiah Lucas MD [STAFF PHYSICIAN] - 1 Week Discharge Disposition: TRANSFER TO SNF/ECF
--- NOTE | 2021-02-15 10:26 | P.PN ---
Subjective Progress Note Date: 02/15/21 On 02/12/2021 patient seen in follow-up medical surgical floor. Currently on 4 L of oxygen pulse ox is 95%. No worsening dyspnea, she is breathing quite comfortably, lung sounds are diminished, no wheezing, no crackles, this had no fever or chills, vital signs have been stable, she has been up in the chair, she does get short of breath with activity. Recovered. Procalcitonin Level was negative at 0.08, today's labs have been reviewed. Today's labs revealed white blood cell count of 12.6, hemoglobin of 9, sodium is 142, potassium is 5.6, chloride is 109, CO2 31, BUN is 19, creatinine 0.6, urinalysis showed 1+ protein, 4+ glucose rare bacteria, no definite sign of infection. Patient has been transitioned to oral prednisone 40 mg, she is on nebulized bronchodilators, and Symbicort. She is on Eliquis and amiodarone for history of atrial fibrillation. Complaints of chest discomfort, no hemoptysis. Chest x-ray on admission showed no acute cardiopulmonary process. On 02/13/2021 patient seen in follow-up on medical surgical floor. She is short of breath conversation, and short of breath with any exertion, she has been having difficult time getting up to the bathroom related to exertional dyspnea, she is currently on 3 L of oxygen the pulse ox of 98%, no cough, no phlegm production, no chest pain, lung sounds are diminished with rales at the left base. Her IV fluids are infusing at a rate of 20 ML per hour. He remains on IV steroids and nebulized bronchodilators. She's had no fever or chills. blood culture has shown no growth. Today's labs have been reviewed, white blood cell count is improving and is down to 8.4, hemoglobin is 10.7, sodium is 136, the rest of electrolytes and renal profile were unremarkable. On 02/14/2021 patient seen in follow-up on medical surgical floor. She sounds a bit better on today's exam, mild crackles at the bases, yesterday we gave her a dose of IV Lasix, she is a little less dyspneic, breathing comfortably this morning, she is on 2 L of oxygen pulse ox is 94%. She continues on IV steroids at 60 mg every 6 hours, no wheezing noted on today's exam, she is on inhaled bronchodilators. She's had no acute events overnight. Today's labs are still pending. She is diuresing, and she is in -642 mL over the last 24 hours. On 02/15/2021 patient seen in follow-up on medical surgical floor, she is resting comfortably in bed, she states she is breathing better, she does get exertional dyspnea, lung sounds are diminished with a few bibasilar crackles, she is on 2 L of oxygen pulse ox is 99%, yesterday she received additional dose of IV Lasix she is in -642 mL net fluid balance over the last 24 hours, she remains on inhaled bronchodilators including Symbicort and albuterol. She is on nebulized DuoNeb, she is on IV steroids 60 mg every 6 hours. She's had no acute events overnight, no chest discomfort, no worsening dyspnea, no coughing or phlegm production. Today's labs have been reviewed, white blood cell count is 11.9, hemoglobin is 10.5, BMP is still pending for today. Today discharge planning is in progress for discharge to [facility] for subacute rehab Objective - Vital Signs Vital signs: Vital Signs Temp 97.9 F 02/15/21 07:17 Pulse 100 02/15/21 07:41 Resp 28 H 02/15/21 07:17 BP 144/71 02/15/21 07:17 Pulse Ox 98 02/15/21 07:17 Intake & Output 02/14/21 02/15/21 02/15/21 18:59 06:59 18:59 Intake Total 708 Output Total 300 400 Balance 408 -400 Weight 45.359 kg Intake: Oral 708 Output: Urine 300 400 Other: Voiding Method External Catheter External Catheter # Bowel Movements 1 - Exam GENERAL EXAM: Alert, very pleasant, 85-year-old white female, on 2 L of oxygen with pulse ox of 98% dyspneic with conversation HEAD: Normocephalic/atraumatic. EYES: Normal reaction of pupils, equal size. Conjunctiva pink, sclera white. NOSE: Clear with pink turbinates. THROAT: No erythema or exudates. NECK: No masses, no JVD, no thyroid enlargement, no adenopathy. CHEST: No chest wall deformity. Symmetrical expansion. LUNGS: Equal air entry with bibasilar crackles left greater than right CVS: Regular rate and rhythm, normal S1 and S2, no gallops, no murmurs, no rubs ABDOMEN: Soft, nontender. No hepatosplenomegaly, normal bowel sounds, no guarding or rigidity. EXTREMITIES: No clubbing, mild pretibial edema, no cyanosis, 2+ pulses and upper and lower extremities. MUSCULOSKELETAL: Muscle strength and tone normal. SPINE: No scoliosis or deformity SKIN: No rashes CENTRAL NERVOUS SYSTEM: Alert and oriented -3. No focal deficits, tone is normal in all 4 extremities. PSYCHIATRIC: Alert and oriented -3. Appropriate affect. Intact judgment and insight. - Labs CBC & Chem 7: 02/15/21 04:48 02/13/21 09:11 Labs: Abnormal Lab Results - Last 24 Hours (Table) 02/15/21 Range/Units 04:48 WBC 11.99 H (4.50-10.00) X 10*3/uL Hgb 10.5 L (12.0-15.0) g/dL MCH 23.6 L (27.0-32.0) pg MCHC 28.2 L (32.0-37.0) g/dL RDW 15.5 H (11.5-14.5) % Immature Gran # 0.10 H (0.00-0.04) X 10*3/uL Neutrophils # 10.97 H (1.80-7.70) X 10*3/uL Lymphocytes # 0.47 L (0.90-5.00) X 10*3/uL Eosinophils # 0 L (0.04-0.35) X 10*3/uL Microbiology - Last 24 Hours (Table) 02/09/21 12:38 Blood Culture - Preliminary Blood No Growth after 120 hours 02/09/21 12:38 Blood Culture - Preliminary Blood No Growth after 120 hours Assessment and Plan Plan: Assessment: #1. Acute exacerbation of COPD, chest x-ray showing no acute cardiopulmonary process. There was a minor nonspecific patchy left lower lobe infiltrate on the previous CT of the chest dated 02/06/2021 and subsequent chest x-ray was clear #2. Advanced oxygen dependent COPD, on Trelegy Ellipta on an outpatient basis #3. Chronic dyspnea and marked limitation in exercise capacity secondary to COPD #4. 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 Chronic atrial fibrillation on Eliquis #6. Previous history of CVA #7. Hypertension #8. History of GERD/reflux #9. Previous history of falls #10. Pacemaker insertion for history of sinus pauses and syncopal episodes Plan: Patient is breathing easier today Follow-up chest x-ray has been reviewed showing chronic interstitial changes, and right apical scarring Clinically patient is improving She is on 2 L of oxygen Vital signs have been stable Today's noted Overall long-term prognosis is guarded and poor and in view of multiple comorbidities and poor overall generalized functional performance consideration should be given to palliative care hospice Stable for discharge to subacute rehab today I performed a history & physical examination of the patient and discussed their management with my nurse practitioner, Louann Gambino. I reviewed the nurse practitioner's note and agree with the documented findings and plan of care. Lung sounds are positive for clear breath sounds throughout the lung mccall. The findings and the impression was discussed with the patient. I attest to the documentation by the nurse practitioner. Time with Patient: Less than 30
[2021-02-15 11:06] VITALS: PULSE 104
[2021-02-15 13:21] LABS: African American GFR (CKD) 79.9 (60.0-200.0); Anion Gap 10.5 mmol/L (4.00-12.00); BUN/Creat Ratio 37.36 Ratio (12.00-20.00); Blood Urea Nitrogen 29.1 mg/dL (9.0-27.0); Carbon Dioxide 37.2 mmol/L (21.6-31.8); Non-African American GFR(CKD) 68.9 (60.0-200.0); Potassium 3.8 mmol/L (3.5-5.5)
== END 2021-02-15 13:27 | DRG 190 ==
LOC: EC 11:50 → 4SSUR 14:41
PROVIDERS: ADMIT Internal Medicine; ATTEND Internal Medicine
DX: J44.1 Chronic obstructive pulmonary disease with (acute) exacerbation (principal); J96.21 Acute and chronic respiratory failure with hypoxia; R64 Cachexia; Z68.1 Body mass index [BMI] 19.9 or less, adult; I48.20 Chronic atrial fibrillation, unspecified; E87.2 Acidosis; J44.0 Chronic obstructive pulmonary disease with (acute) lower respiratory infection; I70.0 Atherosclerosis of aorta; M81.0 Age-related osteoporosis without current pathological fracture; Z20.822 Contact with and (suspected) exposure to COVID-19; I10 Essential (primary) hypertension; Z79.01 Long term (current) use of anticoagulants; Z79.899 Other long term (current) drug therapy; Z82.49 Family history of ischemic heart disease and other diseases of the circulatory system; Z82.3 Family history of stroke; Z91.81 History of falling; Z87.81 Personal history of (healed) traumatic fracture; M19.90 Unspecified osteoarthritis, unspecified site; Z86.73 Personal history of transient ischemic attack (TIA), and cerebral infarction without residual deficits; Z87.891 Personal history of nicotine dependence; Z95.0 Presence of cardiac pacemaker; Z99.81 Dependence on supplemental oxygen
CPT/HCPCS: 36415; 71045; 71046; 71275; 80048; 80053; 81001; 83605; 83735; 83880; 84145; 84443; 84484; 85025; 85610; 85730; 87040; 87635; 93005; 94640; 94760; 96361; 96374; 99291